=== PATIENT | female | born 1975 | race Caucasian/White ===

== ENCOUNTER → 2018-03-28 16:18 | Outpatient (CLI) | payer OTHER, SELFPAY ==
[2018-03-28 18:30] LABS: Rubella Antibody IgG 32.9 IU/mL (>15)
[2018-03-30 15:28] LABS: Hepatitis B Surf Ab Qualitativ Nonreactive (Nonreactive)
[2018-03-30 18:14] LABS: Rubeola Measles IgG > 300.00 AU/mL (< 25.00)
== END ==
PROVIDERS: PCP Internal Medicine; Visit Provider Family Medicine
DX: Z01.84 Encounter for antibody response examination (principal)
CPT/HCPCS: 36415; 86706; 86735; 86762; 86765; 86787

== ENCOUNTER 2019-03-23 16:41 | Emergency (ER) | payer OTHER, SELFPAY ==
[2019-03-23 16:50] VITALS: BP 125/84; PULSE 82; RESP 16; TEMP 36.8; O2SAT 100
--- NOTE | 2019-03-23 19:15 | ED_ITS ---
HPI - Headache General Chief Complaint: Headache Stated Complaint: HEADACHES Time Seen by Provider: 03/23/19 19:11 Source: family Mode of arrival: Ambulatory Limitations: no limitations History of Present Illness HPI Narrative: 43-year-old female nonsmoker with history of hypothyroidism presents with a chief complaint of gradually worsening headache over the past week or so. She states that it is generalized in its location, worse with loud noises and bright lights and improves with darkness. She has some nausea but denies any vomiting. Patient does have a history of headaches but states this is different than her typical. She denies other neurologic symptoms such as blurred vision, trouble with speech or numbness, tingling or weakness. Patient's recent history is relatively complicated and that she suffered a mechanical fall resulting in a left elbow dislocation just prior to the symptoms. She denies any known head or neck injury as a consequence of the fall. She had been taking Percocet for her discomfort but stopped as it made her quite nauseated. Her headaches started soon after. Additionally she's been having decreased appetite and even admits to significant decrease in her caffeine intake. MD Complaint: headache Onset (ago): day(s) Onset description: gradual Location: diffuse Severity: moderate Quality: aching and different than previous headaches Relieving factors: dark room Exacerbating factors: light and noise Associated symptoms: nausea, photophobia and sensitivity to sound Treatments prior to arrival: none Related Data Home Medications Medication Instructions Recorded Confirmed cholecalciferol (vitamin D3) 50 2,000 unit PO DAILY 11/17/17 03/23/19 mcg (2,000 unit) capsule omega-3 fatty acids 1,000 mg 1,000 mg PO DAILY 11/17/17 03/23/19 capsule thyroid (pork) [[place] Thyroid] 90 mg PO DAILY 03/23/19 03/23/19 Previous Rx's Medication Instructions Recorded ketorolac 10 mg PO Q6H PRN #14 tab 03/23/19 Allergies Allergy/AdvReac Type Severity Reaction Status Date / Time naproxen [From Aleve] Allergy Severe eyes, lips Verified 03/23/19 16:21 and genital edema codeine AdvReac Mild vomiting Verified 03/23/19 16:21 Review of Systems Constitutional Constitutional: Denies chills, Denies fatigue, Denies fever(s), Denies frequent falls, Reports headache(s), Denies lethargy and Denies weakness Eyes Eyes: Denies change in vision, Denies eye discharge, Denies irritation and Denies loss of vision ENT Ears, Nose, Mouth, and Throat: Denies change in voice, Denies dizziness, Reports headache(s), Denies neck pain, Denies sore throat and Denies throat swelling Cardiovascular Cardiovascular: Denies chest pain, Denies irregular heart rhythm, Denies lightheadedness, Denies palpitations, Denies dyspnea, Denies dyspnea on exertion and Denies orthopnea Respiratory Respiratory: Denies cough, Denies dyspnea, Denies dyspnea on exertion and Denies wheezing Gastrointestinal Gastrointestinal: Denies abdominal pain, Denies change in bowel habits, Denies diarrhea, Denies nausea and Denies vomiting Genitourinary Genitourinary: Denies hematuria, Denies flank pain, Denies urinary incontinence and Denies urinary urgency Musculoskeletal Musculoskeletal: Denies back pain, Denies muscle weakness, Denies neck pain, Denies numbness and Denies tingling Integumentary/Breasts Skin/Breast: Denies pruritus, Denies erythema, Denies rash and Denies wounds Neurologic Neurologic: Denies behavioral changes, Denies confusion, Denies dizziness, Denies frequent falls, Reports headache(s), Denies loss of vision, Denies numbness, Denies tingling and Denies weakness Psychiatric Psychiatric: Denies anxiety, Denies behavioral changes, Denies confusion, Denies depression, Denies homicidal ideation and Denies suicidal ideation Endocrine Endocrine: Denies fatigue, Denies flushing and Denies palpitations Hematologic/Lymphatic Hematologic/Lymphatic: Denies easy bruising Allergic/Immunologic Allergic/Immunologic: Denies urticaria, Denies throat swelling and Denies wheezing Patient History Medical History Actinic keratosis (Chronic ~2006) Chicken pox (Resolved ~1982) Headache (Chronic) Hypothyroidism (Chronic) Seasonal allergies (Chronic ~1994) Seizure (Resolved ~1984) Warts (Chronic) Surgical History Anesthesia (Resolved) History of tonsillectomy (Resolved) Family History Father Prostate cancer Mother Facial basal cell cancer Mental health problem Depression Bipolar disorder Grandfather Cancer Grandmother No problems noted. Grandfather Cancer Grandmother No problems noted. Social History Smoking Status: Never smoker Smoking Status: Never smoker alcohol intake frequency: holidays/special occasions only Substance Use Type: does not use Exam Narrative Exam Narrative: GENERAL: [43] year old patient appears stated age. Well- nourished, well-developed patient, in mild distress. Obviously uncomfortable, sitting in a dark room and massaging her orthodox HEAD: Atraumatic. Normocephalic. EYES: Pupils equal round and reactive. Extraocular motions intact. No scleral icterus. No injection or drainage. ENT: Nose without bleeding, purulent drainage. Throat without erythema, tonsillar hypertrophy or exudate. Airway patent. NECK: Trachea midline. Non tender CARDIOVASCULAR: Regular rate and rhythm without murmurs, gallops, or rubs. RESPIRATORY: Clear to auscultation. Breath sounds equal bilaterally. No wheezes, rales, or rhonchi. GASTROINTESTINAL: Abdomen soft, non-tender, nondistended. EXTREMITIES: No edema or joint tenderness. BACK: Nontender without deformity or crepitance. No flank tenderness. NEURO: AOx3. SKIN: No rash or erythema of visible areas Initial Vital Signs Initial Vital Signs: Vital Signs Temperature 98.2 F 03/23/19 16:50 Pulse Rate 82 03/23/19 16:50 Respiratory Rate 16 03/23/19 16:50 Blood Pressure 125/84 03/23/19 16:50 Pulse Oximetry 100 03/23/19 16:50 Course Orders Ordered: ED Orders 03/23/19 19:24 CT head/brain wo con Stat Discontinued Medications Diphenhydramine HCl (Benadryl) 25 mg IV NOW ONE Stop: 03/23/19 19:27 Last Admin: 03/23/19 19:53 Dose: 25 mg Documented by: DADA Sodium Chloride (Normal Saline 0.9%) 1,000 mls @ 1,000 mls/hr IV BOLUS ONE Stop: 03/23/19 20:25 Last Infusion: 03/23/19 21:01 Dose: 0 mls/hr Documented by: Admin: 03/23/19 19:53 Dose: 1,000 mls/hr Documented by: DADA Ketorolac Tromethamine (Toradol) 15 mg IV NOW ONE Stop: 03/23/19 19:27 Last Admin: 03/23/19 19:53 Dose: 15 mg Documented by: DADA Metoclopramide HCl (Reglan) 10 mg IV NOW ONE Stop: 03/23/19 19:27 Last Admin: 03/23/19 19:54 Dose: 10 mg Documented by: DADA Vital Signs Vital signs: Vital Signs - 8 hr 03/23/19 20:55 Pulse Rate 70 Respiratory Rate 17 Blood Pressure [Right Arm] 117/73 Pulse Oximetry 97 MDM - Headache Lab Data Labs: Point of Care Testing Glucose POC [address] scan - head: Radiologist's Impression: Myla Marinelli 43 F 1975 [place] [address] CT Scan Report Signed Patient: Myla Marinelli JMR#: [id number] : 1975Acct:[id number] Age/Sex: 43 / FDate of Service: 03/23/19 Loc: ED Accession Number: [id number] Procedure: CT head/brain wo con Ordering Provider: Juan Luis Randle D.O. PROCEDURE: CT HEAD/BRAIN WO CON INDICATIONS: fall head injury, headaches, vomiting TECHNIQUE: Noncontrast 4.5 mm thick angled axial sections acquired from the foramen magnum to the vertex, with coronal and sagittal reformats. For radiation dose reduction, the following was used: automated exposure control, adjustment of mA and/or kV according to patient size. COMPARISON: None. FINDINGS: Image quality: Excellent. CSF spaces: Basal cisterns are patent. No extra-axial fluid collections. Ventricles are normal in size and shape. Brain: No midline shift. No intracranial masses or hemorrhage. Rivera-white matter interface is normal. Skull and face: Calvarium and visualized facial bones are intact, without suspicious lesions. Sinuses: Visualized sinuses and mastoids are clear. IMPRESSION: Negative for acute stroke, hemorrhage, or mass. No evidence of significant intracranial sequelae of acute trauma. Dictated by: Lake Cheung M.D. on 03/23/2019 at 19:49 Approved by: Lake Cheung M.D. on 03/23/2019 at 19:50 MDM Narrative Medical decision making narrative: Multiple etiologies for patient's symptoms considered including: [Subarachnoid hemorrhage versus migraine versus caffeine withdrawal versus other. Patient's symptoms suggest a multifactorial source inc luding intolerance of opioids, mild dehydration, change in oral intake, caffeine withdrawal, even possibly tension headache type presentation associated with her upper extremity injury.] Patient's symptoms improved or duration of stay with above-stated therapies. Findings and discharge diagnosis discussed with patient/family followed by verbalization of understanding Return precautions discussed with patient/family whom verbalize understanding. Discharge Plan Departure Patient Disposition: Home Clinical Impression: Headache Qualifiers: Headache type: unspecified Headache chronicity pattern: acute headache Intractability: not intractable Qualified Code(s): R51 - Headache Discharge Date/Time: 03/23/19 21:03 Instructions: DI for Headache Activity Restrictions/Additional Instructions: *You have been diagnosed with [acute headache, likely multifactorial from recent medications, injury, caffeine, dehydration, change in diet among others] *What to do: *Take medications as directed *Follow up with your primary care provider in 2-3 days, call for an appointment. Let them know you were seen in the Emergency Department and that we ask that you be seen in follow up *Return to ER if you should have any new, worsening or concerning symptoms Prescriptions: New ketorolac 10 mg tablet 10 mg PO Q6H PRN (Reason: pain) Qty: 14 RF: 0 No Action cholecalciferol (vitamin D3) 2,000 unit capsule 2,000 unit PO DAILY RF: 0 omega-3 fatty acids [Fish Oil Concentrate] 1,000 mg capsule 1,000 mg PO DAILY RF: 0 thyroid (pork) [[place] Thyroid] 90 mg Tablet 90 mg PO DAILY RF: 0 Referrals: Blanche Roberson ARNP [Primary Care Provider] -
--- NOTE | 2019-03-23 19:24 | DI.CT.S_ITS ---
PROCEDURE: CT HEAD/BRAIN WO CON INDICATIONS: fall head injury, headaches, vomiting TECHNIQUE: Noncontrast 4.5 mm thick angled axial sections acquired from the foramen magnum to the vertex, with coronal and sagittal reformats. For radiation dose reduction, the following was used: automated exposure control, adjustment of mA and/or kV according to patient size. COMPARISON: None. FINDINGS: Image quality: Excellent. CSF spaces: Basal cisterns are patent. No extra-axial fluid collections. Ventricles are normal in size and shape. Brain: No midline shift. No intracranial masses or hemorrhage. Rivera-white matter interface is normal. Skull and face: Calvarium and visualized facial bones are intact, without suspicious lesions. Sinuses: Visualized sinuses and mastoids are clear. IMPRESSION: Negative for acute stroke, hemorrhage, or mass. No evidence of significant intracranial sequelae of acute trauma. Dictated by: Lake Cheung M.D. on 03/23/2019 at 19:49 Approved by: Lake Cheung M.D. on 03/23/2019 at 19:50
[2019-03-23] MEDS: diphenhydrAMINE 50 MG/ML VIAL 25 MG IV (19:53)
[2019-03-23] MEDS: SODIUM CHLORIDE 0.9% 1,000 ML 1000 ML IV (19:53)
[2019-03-23] MEDS: KETOROLAC 60 MG/2 ML VIAL 15 MG IV (19:53)
[2019-03-23] MEDS: METOCLOPRAMIDE 10 MG/2 ML INJ IV (19:54)
[2019-03-23 20:55] VITALS: BP 117/73; PULSE 70; RESP 17; O2SAT 97
== END 2019-03-23 21:03 | disposition home or self-care (01) ==
PROVIDERS: Emergency Provider Emergency Medicine; Family Provider Internal Medicine; PCP Internal Medicine
DX: R51 Headache (principal)
CPT/HCPCS: 36415; 70450; 82962; 96361; 96374; 96375; 99284; J1200; J1885; J2765

== ENCOUNTER → 2019-05-01 13:42 | Outpatient (CLI) | payer OTHER, SELFPAY ==
--- NOTE | 2019-05-01 | DI.MRI.S_ITS ---
PROCEDURE: MR WRIST LT W CON INDICATIONS: LEFT WRIST PAIN TECHNIQUE: After the administration of 3-4 mL of dilute intra-articular Gadolinium contrast into the radiocarpal compartment, coronal T1 spin echo with fat saturation and T2 fast spin echo with fat saturation, axial T1 spin echo and T2 fast spin echo with fat saturation, sagittal T1 spin echo with and without fat saturation through the wrist. COMPARISON: None. FINDINGS: Image quality: Excellent. Bones and cartilage: The carpal bones are normally aligned. No bone marrow contusions or fractures. 3 mm T2 hyperintense focal marrow signal change present in the distal capitate. No evidence for avascular necrosis. Overlying cartilage surfaces appear normal. Carpal ligaments: The scapholunate ligament appears grossly intact The lunotriquetral ligament is not well seen and there is gadolinium extravasation into the mid-carpal compartment. The radioscaphocapitate and radiolunotriquetral ligaments appear intact. The arcuate ligament and short radiolunate ligament also appear normal. The dorsal intercarpal and radiotriquetral ligaments appear intact. On sagittal images, the pisohamate ligament appears intact. Triangular fibrocartilage complex: The triangular fibrocartilage disc, with its styloid and foveal lamina, appears intact. There is gadolinium leakage into the distal radioulnar joint. However the exact etiology is not well visualized by MR. The adjacent meniscal homolog appears normal. The ulnar collateral ligament appears intact. The extensor carpi ulnaris tendon is normal in location and morphology. Tendons and soft tissues: The carpal tunnel structures appear normal, including the median nerve. The ulnar nerve appears normal within Guyon's canal. All six extensor tendon compartments demonstrate normal morphology, without pathologic tendon sheath fluid. No soft tissue ganglion cysts. IMPRESSION: Tear of the lunotriquetral ligament. Associated gadolinium contrast material leakage into the midcarpal compartment Gadolinium signal intensity present within the distal radioulnar joint although the exact source is unclear. This infers full thickness perforation of the TFCC however this is not well visualized by MR. No ulnocarpal chondral loss is identified. Dictated by: Alexys Burch M.D. on 05/01/2019 at 15:53 Approved by: Alexys Burch M.D. on 05/01/2019 at 16:09
--- NOTE | 2019-05-01 | DI.RAD.S_ITS ---
PROCEDURE: FL WRIST INJECTION MR/CT LT INDICATIONS: LEFT WRIST PAIN TECHNIQUE: After informed consent had been obtained, the wrist was examined fluoroscopically, and a site chosen for injection of the radiocarpal compartment from a dorsal approach. Skin was prepped and draped in a sterile fashion and 1% lidocaine infiltrated from the skin down to the articular surface. A hypodermic needle was then introduced into the articular space and a modest amount of contrast medium was instilled confirming intra-articular needle tip placement. This was followed by approximately 4 mL of a dilute gadolinium solution. Needle was removed and dressing was applied. The patient experienced no complications throughout the procedure and left the fluoroscopic suite in no apparent distress. FINDINGS: A single fluoroscopic spot image demonstrates intra-articular location to injected iodinated contrast. IMPRESSION: Successful fluoroscopic-guided administration of dilute Gadolinium solution for wrist MR arthrogram. Dictated by: Alexys Burch M.D. on 05/01/2019 at 17:37 Approved by: Alexys Burch M.D. on 05/01/2019 at 17:38
== END ==
PROVIDERS: Family Provider Internal Medicine; PCP Internal Medicine; Referring Provider Internal Medicine; Visit Provider Orthopaedic Surgery
DX: M25.532 Pain in left wrist (principal); S63.592A Other specified sprain of left wrist, initial encounter
CPT/HCPCS: 20605; 73222; 76000

== ENCOUNTER → 2020-04-17 15:16 | Outpatient (CLI) | payer OTHER, SELFPAY ==
--- NOTE | 2020-04-17 | DI.US.S_ITS ---
PROCEDURE: US PELVIC COMPLETE INDICATIONS: IUD PLACEMENT TECHNIQUE: Real-time scanning was performed of the pelvic organs, with image documentation. Additional endovaginal scanning was necessary due to incomplete visualization of the adnexal and endometrial structures by transabdominal scanning. COMPARISON: None. FINDINGS: Uterus: Uterus is normal in size at 9.2 x 6.1 x 5.1 cm. The endometrium measures 6 mm in combined thickness. An IUD is seen at its expected location at the uterine fundus. Ovaries: The right ovary measures 3.5 x 2 x 1.7 cm and demonstrates an unremarkable sonographic appearance. The left ovary is not seen. No adnexal masses are seen on either side. Other: No pathologic free abdominal or pelvic fluid. IMPRESSION: The IUD is seen at its expected location. Left ovary not seen. Dictated by: Hamzah Molina M.D. on 04/17/2020 at 15:49 Approved by: Hamzah Molina M.D. on 04/17/2020 at 15:50
== END ==
PROVIDERS: Family Provider Internal Medicine; PCP Internal Medicine; Referring Provider Internal Medicine; Visit Provider Internal Medicine
DX: Z30.431 Encounter for routine checking of intrauterine contraceptive device (principal)
CPT/HCPCS: 76830; 76856

== ENCOUNTER → 2020-04-24 12:13 | Outpatient (CLI) | payer OTHER, SELFPAY ==
--- NOTE | 2020-04-24 12:14 | DI.MG.S_ITS ---
BILATERAL DIGITAL SCREENING MAMMOGRAM 3D/2D WITH CAD: 04/24/2020 CLINICAL: Routine screening. Comparison is made to exam dated: 03/26/2016 mammogram - outside. The tissue of both breasts is heterogeneously dense. This may lower the sensitivity of mammography. Current study was also evaluated with a Computer Aided Detection (CAD) system. No significant masses, calcifications, or other findings are seen in either breast. There has been no significant interval change. IMPRESSION: NEGATIVE There is no mammographic evidence of malignancy. A 1 year screening mammogram is recommended. This exam was interpreted at Station ID: [id number]. NOTE: For mammograms, a report in lay terms will be sent to the patient. Approximately 15% of breast malignancies will not be visualized mammographically. In the management of a palpable breast mass, a negative mammogram must not discourage biopsy of a clinically suspicious lesion. Electronically Signed By: Carter [email or web address]:04/24/2020 12:50:48 letter sent: Normal Exam ACR BI-RADS Category 1: Negative 3341F
== END ==
PROVIDERS: Family Provider Internal Medicine; PCP Internal Medicine; Referring Provider Internal Medicine; Visit Provider Internal Medicine
DX: Z12.31 Encounter for screening mammogram for malignant neoplasm of breast (principal)
CPT/HCPCS: 77063; 77067

== ENCOUNTER → 2020-04-29 16:29 | Outpatient (CLI) | payer OTHER, SELFPAY ==
[2020-04-29 17:48] LABS: COVID19 -Nasal RAPID Negative (Negative)
== END ==
PROVIDERS: Family Provider Internal Medicine; PCP Internal Medicine; Visit Provider Physician Assistant
DX: Z20.822 Contact with and (suspected) exposure to COVID-19 (principal)
CPT/HCPCS: 87635

== ENCOUNTER → 2021-07-29 13:30 | Outpatient (CLI) | payer OTHER, SELFPAY ==
--- NOTE | 2021-07-29 | DI.MG.S_ITS ---
BILATERAL DIGITAL SCREENING MAMMOGRAM 3D/2D WITH CAD: 07/29/2021 CLINICAL: Routine screening. Comparison is made to exams dated: 04/24/2020 mammogram - [facility] and 03/26/2016 mammogram - outside. The tissue of both breasts is heterogeneously dense. This may lower the sensitivity of mammography. Current study was also evaluated with a Computer Aided Detection (CAD) system. No significant masses, calcifications, or other findings are seen in either breast. There has been no significant interval change. IMPRESSION: NEGATIVE There is no mammographic evidence of malignancy. A 1 year screening mammogram is recommended. This exam was interpreted at Station ID: [id number]. NOTE: For mammograms, a report in lay terms will be sent to the patient. Approximately 15% of breast malignancies will not be visualized mammographically. In the management of a palpable breast mass, a negative mammogram must not discourage biopsy of a clinically suspicious lesion. Electronically Signed By: Paige [email or web address]/josh:07/29/2021 15:37:54 letter sent: Normal Exam ACR BI-RADS Category 1: Negative 3341F
== END ==
PROVIDERS: Family Provider Internal Medicine; PCP Internal Medicine; Referring Provider Internal Medicine; Visit Provider Internal Medicine
DX: Z12.31 Encounter for screening mammogram for malignant neoplasm of breast (principal)
CPT/HCPCS: 77063; 77067

== ENCOUNTER → 2022-05-18 15:01 | Outpatient (CLI) | payer OTHER, SELFPAY ==
--- NOTE | 2022-05-18 15:04 | DI.RAD.S_ITS ---
PROCEDURE: XR CHEST 2V INDICATIONS: COVID + /, worsening cough TECHNIQUE: 2 views of the chest were acquired. COMPARISON: None. FINDINGS: Surgical changes and devices: None. Lungs and pleura: Lungs are clear. No pleural effusions or pneumothorax. Mediastinum: Mediastinal contours are normal. Heart size is normal. Bones and chest wall: No suspicious bony abnormalities. Soft tissues appear unremarkable. IMPRESSION: No acute cardiopulmonary process demonstrated radiographically. Dictated by: Jason Daniel M.D. on 05/18/2022 at 16:06 Approved by: Jason Daniel M.D. on 05/18/2022 at 16:06
== END ==
PROVIDERS: Family Provider Internal Medicine; PCP Internal Medicine; Referring Provider Student in an Organized Health Care Education/Training Program; Visit Provider Student in an Organized Health Care Education/Training Program
DX: U07.1 COVID-19 (principal); R05.9 Cough, unspecified
CPT/HCPCS: 71046

== ENCOUNTER → 2023-05-17 14:05 | Outpatient (CLI) | payer OTHER, SELFPAY ==
--- NOTE | 2023-05-17 14:07 | DI.MG.S_ITS ---
BILATERAL DIGITAL SCREENING MAMMOGRAM 3D/2D WITH CAD: 05/17/2023 CLINICAL: Routine screening. Comparison is made to exams dated: 07/29/2021 mammogram, 04/24/2020 mammogram - [facility], and 03/26/2016 mammogram - outside. Both breasts are heterogeneously dense, which may obscure small masses (category c / 51-75% glandular tissue). Current study was also evaluated with a Computer Aided Detection (CAD) system. No significant masses, calcifications, or other findings are seen in either breast. There has been no significant interval change. IMPRESSION: NEGATIVE There is no mammographic evidence of malignancy. A 1 year screening mammogram is recommended. Based on the Tyrer Cuzick model (a risk assessment model) the patient's lifetime risk is 8.8% and her 10 year risk is 1.8%. According to the ACR, ACS, and NCCN guidelines, an annual breast MRI exam along with mammogram is recommended if the patient's lifetime risk is 20% or greater. This exam was interpreted at Station ID: [id number]. NOTE: For mammograms, a report in lay terms will be sent to the patient. Approximately 15% of breast malignancies will not be visualized mammographically. In the management of a palpable breast mass, a negative mammogram must not discourage biopsy of a clinically suspicious lesion. Electronically Signed By: Orlando [email or web address]:05/17/2023 17:40:18 letter sent: Normal Exam ACR BI-RADS Category 1: Negative 3341F
== END ==
PROVIDERS: Family Provider Internal Medicine; PCP Internal Medicine; Referring Provider Internal Medicine; Visit Provider Internal Medicine
DX: Z12.31 Encounter for screening mammogram for malignant neoplasm of breast (principal); R92.333 Mammographic heterogeneous density, bilateral breasts
CPT/HCPCS: 77063; 77067

== ENCOUNTER → 2024-01-28 08:44 | Outpatient (CLI) | payer OTHER, SELFPAY ==
[2024-01-28 09:57] LABS: Adenovirus Not Detected (Not Detect); B. parapertussis Not Detected (Not Detecte); Bordetella pertussis Not Detected (Not Detect); Chlamydophila pneumoniae Not Detected (Not Detect); Coronavirus 229E Not Detected (Not Detect); Coronavirus HKU1 Not Detected (Not Detect); Coronavirus NL 63 Not Detected (Not Detect); Coronavirus OC43 Not Detected (Not Detect); Human Metapneumovirus Not Detected (Not Detect); Human Rhinovirus/Enterovirus Not Detected (Not Detect); Influenza A Not Detected (Not Detect); Influenza B Not Detected (Not Detect); Mycoplasma pneumoniae Not Detected (Not Detect); Parainfluenza Virus 1 Not Detected (Not Detect); Parainfluenza Virus 2 Not Detected (Not Detect); Parainfluenza Virus 3 Not Detected (Not Detect); Parainfluenza Virus 4 Not Detected (Not Detect); Respiratory Syncytial Virus Not Detected (Not Detect); SARS- CoV-2 Not Detected (Not Detecte)
== END ==
PROVIDERS: Family Provider Internal Medicine; PCP Internal Medicine; Referring Provider Nurse Practitioner Family; Visit Provider Nurse Practitioner Family
DX: R05.1 Acute cough (principal)
CPT/HCPCS: 87633

== ENCOUNTER → 2024-01-28 08:56 | Outpatient (CLI) | payer OTHER, SELFPAY ==
--- NOTE | 2024-01-28 08:58 | DI.RAD.S_ITS ---
PROCEDURE: XR CHEST 2V INDICATIONS: r/o PNA TECHNIQUE: 2 views of the chest were acquired. COMPARISON: [facility], CR, XR CHEST 2V, 05/18/2022, 16:28. FINDINGS: Surgical changes and devices: None. Lungs and pleura: Lungs are clear. No pleural effusions or pneumothorax. Mediastinum: Mediastinal contours are normal. Heart size is normal. Bones and chest wall: No suspicious bony abnormalities. Soft tissues appear unremarkable. IMPRESSION: No acute pulmonary process. Dictated by: Melisa Dominguez M.D. on 01/28/2024 at 12:32 Approved by: Melisa Dominguez M.D. on 01/28/2024 at 12:35
== END ==
PROVIDERS: Family Provider Internal Medicine; PCP Internal Medicine; Referring Provider Nurse Practitioner Family; Visit Provider Nurse Practitioner Family
DX: R05.1 Acute cough (principal)
CPT/HCPCS: 71046; 87633

== ENCOUNTER → 2024-06-01 08:01 | Outpatient (CLI) | payer OTHER, SELFPAY ==
[2024-06-01 08:35] LABS: Add Manual Diff / Slide Review NO; Basophils Absolute Auto 0 /uL (0-100); Basophils Percent Auto 0.6 % (0-2); Eosinophils Absolute Auto 200 /uL (0-450); Eosinophils Percent Auto 3.3 % (2-4); Hematocrit 39.8 % (36-46); Hemoglobin 13.6 g/dL (12.0-16.0); Lymphocytes Absolute Auto 1900 /uL (1100-4500); Lymphocytes Percent Auto 34.8 % (25-40); Mean Corpuscular HGB Conc 34.3 % (30-36); Mean Corpuscular Hemoglobin 30.3 PG (26-34); Mean Corpuscular Volume 88.4 fL (80-100); Monocytes Absolute Auto 400 /uL (0-900); Monocytes Percent Auto 7.1 % (3-14); Neutrophils Absolute Auto 3000 /uL (1500-7000); Neutrophils Percent Auto 54.2 % (50-75); Platelet Count 252 X10^3/uL (150-400); Red Cell Distribution Width 13.4 % (11.6-14.8); White Blood Cell Count 5.5 X10^3/uL (4.5-11.0)
[2024-06-01 08:55] LABS: Alanine Aminotransferase 20 IU/L (<35); Albumin 4.4 g/dL (3.5-5.0); Albumin Globulin Ratio 2.1 (1.0-2.8); Alkaline Phosphatase 57 U/L (38-126); Aspartate Aminotransferase 25 IU/L (14-36); BUN Creatinine Ratio 22.7 (6-22); Blood Urea Nitrogen 17 mg/dL (7-17); Carbon Dioxide 28 mmol/L (22-32); Chloride 105 mmol/L (98-107); Cholesterol 159 mg/dL (140-199); Estimated Glomerular Filt Rate > 60 mL/min (>60); Globulin 2.1 g/dL (1.7-4.1); Glucose 91 mg/dL (70-100); HDL Cholesterol 67 mg/dL (40-60); HEMOLYSIS < 15 (0-50); Hemoglobin A1C% w Est Avg Glu 4.8 % (4.0-6.0); LDL Cholesterol Calculated 83 mg/dL (<100); Potassium 4.3 mmol/L (3.4-5.1); Sodium 139 mmol/L (137-145); Total Protein 6.5 g/dL (6.3-8.2); Triglycerides 43 mg/dL (35-150)
[2024-06-01 09:11] LABS: Follicle Stimulating Hormone 91.1 mIU/mL; Luteinizing Hormone 41.1 mIU/mL; Progesterone, Total 0.84 ng/mL
[2024-06-01 09:12] LABS: Vitamin D 25 Hydroxy (D3) 50.2 ng/mL (30.0-100.0)
[2024-06-01 09:14] LABS: Free T3, Triiodothyronine Free 7.15 pg/mL (2.77-5.27); T4 Total Thyroxine 6.72 ug/dL (5.5-11.0)
[2024-06-01 09:27] LABS: Thyroid Stimulating Hormone 0.238 uIU/mL (0.47-4.68)
--- NOTE | 2024-06-01 11:33 | DI.MG.S_ITS ---
MM screening mammo BI: 06/01/2024. BI-RADS: 0 CLINICAL: 48-year old female for bilateral screening mammogram. Tyrer-Cuzick lifetime risk of 10.0%. No personal or first-degree family history of breast cancer. PRIOR EXAMS 05/17/2023, 07/29/2021, 04/24/2020. MAMMOGRAPHY TECHNIQUE: 2D and 3D (tomosynthesis) digital mammographic views obtained, with additional images as needed for full coverage. Current study was also evaluated with a Computer Aided Detection (CAD) system. DENSITY C. The breasts are heterogeneously dense, which may obscure small masses. MAMMOGRAPHY FINDINGS Right: Lower Inner Quadrant, Middle depth: Calcifications needing additional imaging evaluation. Left: No suspicious mass, asymmetry, microcalcification, or other abnormality seen. IMPRESSION: Right (Calcification): Lower Inner Quadrant, Middle depth * Incomplete - calcification needing additional imaging evaluation. Left * No evidence of malignancy. RECOMMENDATIONS Right: Lower Inner Quadrant, Middle depth * Further evaluation with diagnostic mammography. OVERALL ASSESSMENT CATEGORY BI-RADS-0: Incomplete - Need Additional Imaging Evaluation. ELECTRONICALLY SIGNED: Elda Cheng M.D. on 06/01/2024 at 04:42:52 PM PT Interpreting Station ID: [id number]
[2024-06-03 18:15] LABS: Anti Thyroglobulin Antibody <1.0 IU/mL (0.0-0.9); Thyroid Peroxidase Antibodies 16 IU/mL (0-34)
[2024-06-04 12:09] LABS: Estrogen 91 pg/mL (.)
[2024-06-05 18:08] LABS: Zinc 74 ug/dL (44-115)
[2024-06-06 00:38] LABS: Anti Mullerian Hormone <0.015 ng/mL (.)
== END ==
PROVIDERS: Family Provider Internal Medicine; PCP Family Medicine; Referring Provider Family Medicine; Visit Provider Family Medicine
DX: Z12.31 Encounter for screening mammogram for malignant neoplasm of breast (principal); Z83.3 Family history of diabetes mellitus; M62.89 Other specified disorders of muscle; R63.5 Abnormal weight gain; N95.8 Other specified menopausal and perimenopausal disorders; R23.2 Flushing; E03.9 Hypothyroidism, unspecified; R92.1 Mammographic calcification found on diagnostic imaging of breast
CPT/HCPCS: 36415; 77063; 77067; 80053; 80061; 82306; 82397; 82672; 83001; 83002; 83036; 83735; 84144; 84402; 84403; 84436; 84443; 84481; 84630; 85025; 86376; 86800

== ENCOUNTER → 2024-06-15 15:43 | Outpatient (CLI) | payer OTHER, SELFPAY ==
--- NOTE | 2024-06-15 15:45 | DI.US.S_ITS ---
PROCEDURE: US THYROID INDICATIONS: elevated T3, low TSH TECHNIQUE: Real-time scanning was performed of the thyroid gland, with image documentation. COMPARISON: None. FINDINGS: Thyroid: Right lobe measures 3.9 x 1 x 0.7 cm. Left lobe measures 3.6 x 1 x 0.6 cm. Isthmus is 0.2 cm thick. Echotexture is heterogeneous. IMPRESSION: Small heterogeneous thyroid. This is likely sequelae of thyroiditis or other parenchymal disease. No actionable thyroid nodule identified. Approved by: Bro Mtz M.D. on 06/15/2024 at 17:37
== END ==
LOC: US 15:44
PROVIDERS: Family Provider Internal Medicine; PCP Family Medicine; Referring Provider Family Medicine; Visit Provider Family Medicine
DX: E03.9 Hypothyroidism, unspecified (principal); R79.89 Other specified abnormal findings of blood chemistry
CPT/HCPCS: 76536

== ENCOUNTER → 2024-08-18 14:20 | Outpatient (CLI) | payer OTHER, SELFPAY ==
[2024-08-18 15:33] LABS: Free T3, Triiodothyronine Free 5.02 pg/mL (2.77-5.27); T4 Total Thyroxine 6.12 ug/dL (5.5-11.0)
[2024-08-18 15:46] LABS: Thyroid Stimulating Hormone 0.948 uIU/mL (0.47-4.68)
== END ==
PROVIDERS: Family Provider Internal Medicine; PCP Family Medicine; Referring Provider Family Medicine; Visit Provider Family Medicine
DX: E03.9 Hypothyroidism, unspecified (principal)
CPT/HCPCS: 36415; 84436; 84443; 84481

== ENCOUNTER → 2024-09-20 08:47 | Outpatient (CLI) | payer OTHER, SELFPAY ==
--- NOTE | 2024-09-20 08:48 | DI.MG.S_ITS ---
MM diagnostic mammo unilat RT: 09/20/2024. BI-RADS: 3 CLINICAL: 48-year old female for right diagnostic mammogram that is a recall from screening on 06/01/2024. Tyrer-Cuzick lifetime risk of 10.0%. No personal or first-degree family history of breast cancer. PRIOR EXAMS Mammogram(s): 06/01/2024. Three Other Exams on 05/17/2023, 07/29/2021, 04/24/2020. MAMMOGRAPHY TECHNIQUE: 2D and 3D (tomosynthesis) digital mammographic views obtained, with additional images as needed for full coverage. Current study was also evaluated with a Computer Aided Detection (CAD) system. DENSITY Right: C. The breasts are heterogeneously dense, which may obscure small masses. MAMMOGRAPHY FINDINGS Right: Lower Inner Quadrant: Correlating with findings on screening mammogram there are probably-benign grouped punctate calcifications. IMPRESSION: Right (Calcification): Lower Inner Quadrant * Probably Benign. RECOMMENDATIONS Right: Lower Inner Quadrant, Middle depth * Six month followup with diagnostic mammography. COMMENTS: Findings and recommendations were conveyed to the patient during today's evaluation. OVERALL ASSESSMENT CATEGORY BI-RADS-3: Probably Benign. ELECTRONICALLY SIGNED: Eusebio Rea M.D. on 09/20/2024 at 09:16:54 AM PT Interpreting Station ID: [id number]
== END ==
LOC: MAMMO 08:47
PROVIDERS: Family Provider Internal Medicine; PCP Family Medicine; Referring Provider Family Medicine; Visit Provider Family Medicine
DX: R92.8 Other abnormal and inconclusive findings on diagnostic imaging of breast (principal); R92.1 Mammographic calcification found on diagnostic imaging of breast; R92.333 Mammographic heterogeneous density, bilateral breasts
CPT/HCPCS: 77065; G0279

== ENCOUNTER 2024-09-26 09:45 | Outpatient (RCR) | payer OTHER, SELFPAY ==
--- NOTE | 2024-02-25 20:06 | PT.OIE ---
Current Diagnoses Sacrococcygeal disorders, not elsewhere classified (02/25/24) Cystocele, unspecified (02/25/24) Unspecified dyspareunia (02/25/24) Flatulence (02/25/24) Fecal urgency (02/25/24) Past Medical History (Last Reviewed 05/18/22 @ 15:45 by Thelma Hernandez PA-C) Actinic keratosis (~2006) Chicken pox (~1982) Headache Hypothyroidism Seasonal allergies (~1994) Seizure (~1984) Warts Past Surgical History (Last Reviewed 05/18/22 @ 15:45 by Thelma Hernandez PA-C) Anesthesia History of tonsillectomy Visit Care Team Role Provider Type GENNA Haro Attending Provider Advanced Lead Dental Assistant Family Provider Primary Care Provider Referring Provider Specialty: [facility] Address: [address] [place] [address], [facility] Email: [email or web address] Physical Therapy Initial Evaluation PT-OP-A Visit Information Start: 01/29/24 13:09 Freq: Status: Active Protocol: Document 02/25/24 07:32 LRN (Rec: 02/25/24 08:24 LRN [id number]) Out-Patient Physical Therapy Visit Information Visit Information Visit Type Initial Evaluation Visit Start Time 07:32 Visit Stop Time 08:23 Visit Number 04/05 Evaluation Information Evaluation Date 02/25/24 Precautions Precautions Seizures? Concussion age 9, thyroid disorder, 4G4P with much pain during 3rd , quick delivery and tearing of unknown degree. PT-OP-B Current Condition Start: 01/29/24 13:09 Freq: Status: Active Protocol: Document 02/25/24 07:32 LRN (Rec: 02/25/24 08:24 LRN [id number]) Current Condition History of Current Condition Onset Date 2014 Current Complaints Having a lot of tailbone pn, heaviness ant lwr abdomen, discomfort in sup. History of Current Condition Has been a runner all her life , moved to [place] and was training for a 10 mile race, then felt like she was sitting on a tennis ball. Stopped running and saw a PT [facility], but stopped after 2 months because she felt it wasn't helpful, other than what stopping running achieved . Pt is 4G4P and had significant tearing with the first childbirth, but normal and running for exercise until time of delivery w/o pain (oldest child is 18). 2nd she felt a moderate amount of discomfort in anterior pubic region. 3rd she had much pubic pain due to baby with large head and delivered fast was fast, < 3 hrs) resulting in post decreased sensation with intercourse. Pt calls needing stitches, but doesn't know the degree of tearing. 4th child was induced delivery and felt was normal, without pain. In August of 2023 she began running 1 mile/day for 20 days and had to stop because of new tailbone pain and heaviness with bulging in the perineum, but not the tennis ball feeling. When having intercourse feels like there is a tissue restricting insertion and is uncomfortable . She plans on discussing with her PCP about starting estrogen creme. She swam and walked with last 3 pregnancies. Currently, sometimes walking to the bathroom she has loss of small fecal matter at work and when out in public, mostly at home . C/o with intercourse she is not able to complete an orgasm, and it is not as intense since the of her 3rd child. Has been told she potentially she will need surgery to repair the PF or rectocele. Treatment Goals Patient/Caregiver Goals Pt goals: Decrease or eliminate tailbone pain (that started in 09/12 after trying running). Decrease heaviness in lower abdomen (2/10), minimal before starting running (1/10) Felt more comfortable Be able to incorporate wgt training in her ex program. ( Restore your core) Improve level of fecal continence. 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 PT-OP-C Subjective Start: 01/29/24 13:09 Freq: Status: Active Protocol: Document 02/25/24 07:32 LRN (Rec: 02/25/24 08:24 LRN [id number]) Patient Questionnaires Pelvic Pain and Urgency/Frequency Patient Symptom Scale Pelvic Pain Score 9 Other Questionnaire Name and Score PF20 partially completed OP-PT Pain Assessment Pain Assessment Grid Paper Pain Assessment Grid Completed Yes Location coccyx Pain Location Details Lower sacrum. Intensity 2 Scale Used Numeric (0 - 10) Description Dull Frequency Constant Other Pain Aggravating Factors Long car rides, supine lying Other Pain Alleviating Factors Laying on sides. PT-OP-I Pelvic Floor Start: 01/29/24 13:09 Freq: Status: Active Protocol: Document 02/25/24 07:32 LRN (Rec: 02/25/24 18:10 LRN [id number]) Pelvic Floor Assessment Comments Pelvic Floor Comments PF assessment deferred to next visit due to time constraint. Externally, R coccygeal muscles are tight. PT-OP-J Posture/Palpation/Skin Start: 01/29/24 13:09 Freq: Status: Active Protocol: Document 02/25/24 07:32 LRN (Rec: 02/25/24 08:24 LRN [id number]) Posture Evaluation Position Standing Shoulder Posture (L) Elevated Scapula Posture (R) Retracted Pelvis Posture (L) PSIS Posterior,(L) ASIS Posterior Comments Posture Comments Dowagers hump, Sacrum L rotated, R PSIS is more lateral than L. In sitting: Pt sits with legs crossed, reportedly for comfort. PT-OP-K Range of Motion Start: 01/29/24 13:09 Freq: Status: Active Protocol: Document 02/25/24 07:32 LRN (Rec: 02/25/24 08:24 LRN [id number]) Lumbar Spine Range of Motion Lumbar Spine Active Degrees Testing Position Standing Flexion 110 Extension 30 Rotation Left 45 Rotation Right 40 Lateral Flexion Left 18 Lateral Flexion Right 18 Hip Goniometric Range of Motion Hip Right Passive Testing Position Supine Internal Rotation 25 External Rotation 75 Left Passive Testing Position Supine Internal Rotation 30 External Rotation 70 PT-OP-M Strength Start: 01/29/24 13:09 Freq: Status: Active Protocol: Document 02/25/24 07:32 LRN (Rec: 02/25/24 08:24 LRN [id number]) Hip Strength Hip Manual Muscle Testing Right Flexion (L2) 3+ Fair+ Internal Rotation 4+ Good+ Left Flexion (L2) 3+ Fair+ Extension (S1) 3 Fair Abduction 3+ Fair+ External Rotation 3+ Fair+ Internal Rotation 4+ Good+ PT-OP-Q Treatments Start: 01/29/24 13:09 Freq: Status: Active Protocol: Document 02/25/24 07:32 LRN (Rec: 02/25/24 08:24 LRN [id number]) Therapeutic Exercises Other Exercises Cat/cow Reps/Minutes x 5 Self-Care/Home Management Treatment Education Other Education Discussed results of evaluation, goals, treatment, and plan of care (POC) with pt , discussed attendance/cx/dns policy; pt agreeable to evaluation, goals, treatment, attendance/cx/dns policy and POC. Discussed and educated pt in specifics for completion of in use of Bladder Diary to include bowel movments and I/S in tracking for 1 week. Activities Self-Care/Home Management Activities I/S pt to Resume program and bring in a list of her previous ex's she was doing on her nirali (Restore your core). PT-OP-T Assessment and Plan Start: 01/29/24 13:09 Freq: Status: Active Protocol: Document 02/25/24 07:32 LRN (Rec: 02/25/24 08:24 LRN [id number]) Physical Therapy Assessment Rehab Potential Rehabilitation Potential Good Evaluation Complexity Number of Personal Factors/Comorbidities 1-2 Number of Body Systems Impaired 4 or More Clinical Presentation at Evaluation Evolving Impairments Impairments Activity Tolerance,Pain,ROM, Sensation,Soft Tissue Mobility ,Strength,Transfers Goals Five Impairment Fecal incontinence Short Term Goal (STG) Improve posterior PF strength with pt able to control passing of gas in public. STG Duration 04/07/24 Animal Nursery Worker Goal (LTG) Improve posterior PF strength with pt able to walk to the bathroom wthout loss of small fecal matter at work and when out in public. LTG Duration 05/19/24 Four Impairment Dyspareunia and inability to complete orgasm. Short Term Goal (STG) Decrease discomfort with intercourse. STG Duration 04/07/24 Residential Goal (LTG) Pt will be able to achieve orgasm with use of pre- intercourse activities and mindfulness activities. LTG Duration 05/19/24 Three Impairment Heaviness pain in lower abdomen (2/10) Short Term Goal (STG) Decrease constant feeling of heaviness in the lower abdoment to intermittent. STG Duration 04/07/24 Animal Nursery Worker Goal (LTG) Eliminate heaviness in the lower abdomen by pt able to demonstrate wgt lifting exercise with proper breathing mechanics. LTG Duration 05/19/24 Two Impairment Constant tailbone pain worse in sitting & supine Short Term Goal (STG) Eliminate tailbone pain with pt able to tolerate some supine lying for sleeping. STG Duration 04/07/24 Animal Nursery Worker Goal (LTG) Decrease or tailbone pain with pt able to comfortably sit for car rides. LTG Duration 05/19/24 One Impairment Lacks appropriate self care HEP. Short Term Goal (STG) Pt will be educated and able to demonstrate proper deep breathing methods for having a bowel mvmt to minimize an increase in core pressure. STG Duration 04/07/24 Residential Goal (LTG) Pt will be independent in a self care HEP for PF strengthening in all positions , and able to incorporate wgt training in her ex program without onset of bulge in perineum (to include Restore your core program). LTG Duration 05/19/24 Assessment Summary Assessment Pt is a 48 yo female with c/o tailbone pn sitting and supine , heaviness in her lower abdomen, fecal incontinence of small amount trying to get to bathroom, pain with intercourse (with insertion being blocked), difficulty achieving full orgasm, and decreased ability to return to weight lifting exercise. She is mildly decreased with R hip IR, L hip ER (5 deg's), strength is decreased in L hip , and she has tightness of her R coccygeal muscles. She probably has perineal muscle dysfunction based on her history. PF assessment was not able to be performed today, due to time constraints as her history taking was quite extensive. PF assessment will be performed at her next visit. It is expected that the pt's therapy may be prolonged due to her multiple areas of dysfunction. The pt will benefit from skilled physical therapy to work towards achieving the above stated goals. Physical Therapy Plan Frequency and Duration Frequency of Treatment 1x/Week Duration of treatment (weeks) 12 Plan of Care Start Date 02/25/24 Plan of Care End Date 05/19/24 Therapeutic Interventions Therapeutic Interventions Home Exercise Program,Joint Mobilizations,Manual Therapy, Neuromuscular Re-education, Self-Care/Home Management,Soft Tissue Mobilization,Taping, Therapeutic Activities, Therapeutic Exercises Modalities Biofeedback,Cold Pack/Ice Massage,Electric Stimulation, Hot Packs Next Visit Focus/Plan Next Note Type Treatment Note Next Visit Plan Next: Assess deep breathing, vaginal and rectal PF assessment. Review bladder/ bowel diary and address appropriate areas. Subsequent visits: Sacral balancing. PF biofeedback assessment (vEMG). Ther Ex: PF & L hip strengthening, assess DR for abdominal strengthening. Improve mobility: hip R>L IR, L>R ER PROM. Manual - ?internal STM. POC: Pt education, Manual therapy. Biofeedback with vaginal or rectal sensor for PF >< awareness (?strength vs relax), Therapeutic Exercises, Therapeutic Activities, Neuromuscular Reeducation.
--- NOTE | 2024-02-25 20:08 | PT.OPPOC ---
Physical, Occupational & Speech Therapy At [facility] Current Diagnoses Sacrococcygeal disorders, not elsewhere classified (02/25/24) Cystocele, unspecified (02/25/24) Unspecified dyspareunia (02/25/24) Flatulence (02/25/24) Fecal urgency (02/25/24) Visit Care Team Role Provider Type GENNA Haro Attending Provider Advanced Features Reporter Family Provider Primary Care Provider Referring Provider Specialty: Family Practice Address: [address] [place] [address], [facility] [place] [employer] Email: Plan Of Care PT-OP-B Current Condition Start: 01/29/24 13:09 Freq: Status: Active Protocol: Document 02/25/24 07:32 LRN (Rec: 02/25/24 08:24 LRN [id number]) Current Condition History of Current Condition Onset Date 2014 Current Complaints Having a lot of tailbone pn, heaviness ant lwr abdomen, discomfort in sup. History of Current Condition Has been a runner all her life , moved to [place] and was training for a 10 mile race, then felt like she was sitting on a tennis ball. Stopped running and saw a PT at [facility], but stopped after 2 months because she felt it wasn't helpful, other than what stopping running achieved . Pt is 4G4P and had significant tearing with the first childbirth, but normal and running for exercise until time of delivery w/o pain (oldest child is 18). 2nd she felt a moderate amount of discomfort in anterior pubic region. 3rd she had much pubic pain due to baby with large head and delivered fast was fast, < 3 hrs) resulting in post decreased sensation with intercourse. Pt calls needing stitches, but doesn't know the degree of tearing. 4th child was induced delivery and felt was normal, without pain. In August of 2023 she began running 1 mile/day for 20 days and had to stop because of new tailbone pain and heaviness with bulging in the perineum, but not the tennis ball feeling. When having intercourse feels like there is a tissue restricting insertion and is uncomfortable . She plans on discussing with her PCP about starting estrogen creme. She swam and walked with last 3 pregnancies. Currently, sometimes walking to the bathroom she has loss of small fecal matter at work and when out in public, mostly at home . C/o with intercourse she is not able to complete an orgasm, and it is not as intense since the of her 3rd child. Has been told she potentially she will need surgery to repair the PF or rectocele. Treatment Goals Patient/Caregiver Goals Pt goals: Decrease or eliminate tailbone pain (that started in 09/12 after trying running). Decrease heaviness in lower abdomen (2/10), minimal before starting running (1/10) [place] more comfortable Be able to incorporate wgt training in her ex program. ( Restore your core) Improve level of fecal continence. 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 PT-OP-T Assessment and Plan Start: 01/29/24 13:09 Freq: Status: Active Protocol: Document 02/25/24 07:32 LRN (Rec: 02/25/24 08:24 LRN [id number]) Physical Therapy Assessment Rehab Potential Rehabilitation Potential Good Evaluation Complexity Number of Personal Factors/Comorbidities 1-2 Number of Body Systems Impaired 4 or More Clinical Presentation at Evaluation Evolving Impairments Impairments Activity Tolerance,Pain,ROM, Sensation,Soft Tissue Mobility ,Strength,Transfers Goals Five Impairment Fecal incontinence Short Term Goal (STG) Improve posterior PF strength with pt able to control passing of gas in public. STG Duration 04/07/24 Cone Classifier Tender Goal (LTG) Improve posterior PF strength with pt able to walk to the bathroom wthout loss of small fecal matter at work and when out in public. LTG Duration 05/19/24 Four Impairment Dyspareunia and inability to complete orgasm. Short Term Goal (STG) Decrease discomfort with intercourse. STG Duration 04/07/24 Cone Classifier Tender Goal (LTG) Pt will be able to achieve orgasm with use of pre- intercourse activities and mindfulness activities. LTG Duration 05/19/24 Three Impairment Heaviness pain in lower abdomen (2/10) Short Term Goal (STG) Decrease constant feeling of heaviness in the lower abdoment to intermittent. STG Duration 04/07/24 Skilled Nursing Goal (LTG) Eliminate heaviness in the lower abdomen by pt able to demonstrate wgt lifting exercise with proper breathing mechanics. LTG Duration 05/19/24 Two Impairment Constant tailbone pain worse in sitting & supine Short Term Goal (STG) Eliminate tailbone pain with pt able to tolerate some supine lying for sleeping. STG Duration 04/07/24 Skilled Nursing Goal (LTG) Decrease or tailbone pain with pt able to comfortably sit for car rides. LTG Duration 05/19/24 One Impairment Lacks appropriate self care HEP. Short Term Goal (STG) Pt will be educated and able to demonstrate proper deep breathing methods for having a bowel mvmt to minimize an increase in core pressure. STG Duration 04/07/24 Skilled Nursing Goal (LTG) Pt will be independent in a self care HEP for PF strengthening in all positions , and able to incorporate wgt training in her ex program without onset of bulge in perineum (to include Restore your core program). LTG Duration 05/19/24 Assessment Summary Assessment Pt is a 48 yo female with c/o tailbone pn sitting and supine , heaviness in her lower abdomen, fecal incontinence of small amount trying to get to bathroom, pain with intercourse (with insertion being blocked), difficulty achieving full orgasm, and decreased ability to return to weight lifting exercise. She is mildly decreased with R hip IR, L hip ER (5 deg's), strength is decreased in L hip , and she has tightness of her R coccygeal muscles. She probably has perineal muscle dysfunction based on her history. PF assessment was not able to be performed today, due to time constraints as her history taking was quite extensive. PF assessment will be performed at her next visit. It is expected that the pt's therapy may be prolonged due to her multiple areas of dysfunction. The pt will benefit from skilled physical therapy to work towards achieving the above stated goals. Physical Therapy Plan Frequency and Duration Frequency of Treatment 1x/Week Duration of treatment (weeks) 12 Plan of Care Start Date 02/25/24 Plan of Care End Date 05/19/24 Therapeutic Interventions Therapeutic Interventions Home Exercise Program,Joint Mobilizations,Manual Therapy, Neuromuscular Re-education, Self-Care/Home Management,Soft Tissue Mobilization,Taping, Therapeutic Activities, Therapeutic Exercises Modalities Biofeedback,Cold Pack/Ice Massage,Electric Stimulation, Hot Packs Next Visit Focus/Plan Next Note Type Treatment Note Next Visit Plan Next: Assess deep breathing, vaginal and rectal PF assessment. Review bladder/ bowel diary and address appropriate areas. Subsequent visits: Sacral balancing. PF biofeedback assessment (vEMG). Ther Ex: PF & L hip strengthening, assess DR for abdominal strengthening. Improve mobility: hip R>L IR, L>R ER PROM. Manual - ?internal STM. POC: Pt education, Manual therapy. Biofeedback with vaginal or rectal sensor for PF >< awareness (?strength vs relax), Therapeutic Exercises, Therapeutic Activities, Neuromuscular Reeducation. Plan of Care Dates Plan of Care Start Date 02/25/24 Plan of Care End Date 05/19/24 Electronically Signed by: Randa Toledo, PT 02/25/242007 If you are in agreement with this Plan of Care, please return a signed and dated copy. I have reviewed this Plan of Care and certify that the skilled therapy services above are required to meet the patient?s needs. Physician Signature Date Printed Name and Credentials Clinical Instructor Signature Printed Name and Credentials
--- NOTE | 2024-03-03 12:53 | PT.OTN ---
Current Diagnoses Sacrococcygeal disorders, not elsewhere classified (03/03/24) Cystocele, unspecified (03/03/24) Unspecified dyspareunia (03/03/24) Flatulence (03/03/24) Fecal urgency (03/03/24) Physical Therapy Treatment Note PT-OP-A Visit Information Start: 01/29/24 13:09 Freq: Status: Active Protocol: Document 03/03/24 07:35 LRN (Rec: 03/03/24 08:21 LRN [id number]) Out-Patient Physical Therapy Visit Information Visit Information Visit Type Treatment Note Visit Start Time 07:35 Visit Stop Time 08:19 Visit Number 05/06 Evaluation Information Evaluation Date 02/25/24 Precautions Precautions IUD 2/7 yrs in. Seizures? Concussion age 9, thyroid disorder, 4G4P with much pain during 3rd , quick delivery and tearing of unknown degree. PT-OP-B Current Condition Start: 01/29/24 13:09 Freq: Status: Active Protocol: Document 02/25/24 07:32 LRN (Rec: 02/25/24 08:24 LRN [id number]) Current Condition History of Current Condition Onset Date 2014 Current Complaints Having a lot of tailbone pn, heaviness ant lwr abdomen, discomfort in sup. History of Current Condition Has been a runner all her life , moved to [place] and was training for a 10 mile race, then felt like she was sitting on a tennis ball. Stopped running and saw a PT at [facility], but stopped after 2 months because she felt it wasn't helpful, other than what stopping running achieved . Pt is 4G4P and had significant tearing with the first childbirth, but normal and running for exercise until time of delivery w/o pain (oldest child is 18). 2nd she felt a moderate amount of discomfort in anterior pubic region. 3rd she had much pubic pain due to baby with large head and delivered fast was fast, < 3 hrs) resulting in post decreased sensation with intercourse. Pt calls needing stitches, but doesn't know the degree of tearing. 4th child was induced delivery and felt was normal, without pain. In August of 2023 she began running 1 mile/day for 20 days and had to stop because of new tailbone pain and heaviness with bulging in the perineum, but not the tennis ball feeling. When having intercourse feels like there is a tissue restricting insertion and is uncomfortable . She plans on discussing with her PCP about starting estrogen creme. She swam and walked with last 3 pregnancies. Currently, sometimes walking to the bathroom she has loss of small fecal matter at work and when out in public, mostly at home . C/o with intercourse she is not able to complete an orgasm, and it is not as intense since the of her 3rd child. Has been told she potentially she will need surgery to repair the PF or rectocele. Treatment Goals Patient/Caregiver Goals Pt goals: Decrease or eliminate tailbone pain (that started in 09/12 after trying running). Decrease heaviness in lower abdomen (2/10), minimal before starting running (1/10) [place] more comfortable Be able to incorporate wgt training in her ex program. ( Restore your core) Improve level of fecal continence. 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 PT-OP-C Subjective Start: 01/29/24 13:09 Freq: Status: Active Protocol: Document 03/03/24 07:35 LRN (Rec: 03/03/24 08:21 LRN [id number]) OP-PT Subjective Patient Comments Patient Comments Forgot her papers, thinks her times btn voids were 2 or 4 hrs depending on the day, and once in night. 8-10 sec urinations. Thinks fluid intake was 40-50 oz/day. BM's mostly in AM, type 3,4,5. Wore pantiliner daily for 8-9 yrs (changing 1-2x/day), running this summer, feels the leakage is blocked, so don't have to wear pantiliner daily. Patient Questionnaires Pelvic Floor Distress Inventory Questionnaire (PFDI- SF20) Pelvic Floor Score submitted completed form 03/03. PT-OP-I Pelvic Floor Start: 01/29/24 13:09 Freq: Status: Active Protocol: Document 02/25/24 07:32 LRN (Rec: 02/25/24 18:10 LRN [id number]) Pelvic Floor Assessment Comments Pelvic Floor Comments PF assessment deferred to next visit due to time constraint. Externally, R coccygeal muscles are tight. PT-OP-J Posture/Palpation/Skin Start: 01/29/24 13:09 Freq: Status: Active Protocol: Document 02/25/24 07:32 LRN (Rec: 02/25/24 08:24 LRN [id number]) Posture Evaluation Position Standing Shoulder Posture (L) Elevated Scapula Posture (R) Retracted Pelvis Posture (L) PSIS Posterior,(L) ASIS Posterior Comments Posture Comments Dowagers hump, Sacrum L rotated, R PSIS is more lateral than L. In sitting: Pt sits with legs crossed, reportedly for comfort. PT-OP-K Range of Motion Start: 01/29/24 13:09 Freq: Status: Active Protocol: Document 02/25/24 07:32 LRN (Rec: 02/25/24 08:24 LRN [id number]) Lumbar Spine Range of Motion Lumbar Spine Active Degrees Testing Position Standing Flexion 110 Extension 30 Rotation Left 45 Rotation Right 40 Lateral Flexion Left 18 Lateral Flexion Right 18 Hip Goniometric Range of Motion Hip Right Passive Testing Position Supine Internal Rotation 25 External Rotation 75 Left Passive Testing Position Supine Internal Rotation 30 External Rotation 70 PT-OP-M Strength Start: 01/29/24 13:09 Freq: Status: Active Protocol: Document 02/25/24 07:32 LRN (Rec: 02/25/24 08:24 LRN [id number]) Hip Strength Hip Manual Muscle Testing Right Flexion (L2) 3+ Fair+ Internal Rotation 4+ Good+ Left Flexion (L2) 3+ Fair+ Extension (S1) 3 Fair Abduction 3+ Fair+ External Rotation 3+ Fair+ Internal Rotation 4+ Good+ PT-OP-Q Treatments Start: 01/29/24 13:09 Freq: Status: Active Protocol: Document 03/03/24 07:35 LRN (Rec: 03/03/24 08:21 LRN [id number]) Therapeutic Exercises Supine Exercises Kegels, quick/long Reps/Minutes 5' Comments Extra time for positioning. Deep BReathing Supine Exercise Name Training started in sit, transferred to supine for better pt awareness. Reps/Minutes 6 sec in/6 sec out (5') Comments Cued hand on chest and one on belly. Sitting Exercises Kegels, quick/long hold Reps/Minutes 6' Comments extra time taken for positional change Standing Exercises Kegels, quick/long hold Reps/Minutes 6' Comments extra time taken for positional change Neuro Re-Education Treatment Coordination Activities Transfers with Kegel/breath Details Sup<>sit<>stand w/Kegel/breath Reps/Duration 10' Comments Constant cuing during transfers for exhale & inhale and Kegel. Self-Care/Home Management Treatment Education Other Education 11' Discussed at length bladder diary what pt could remember, discussed fluid intake (AM/PM), urinary voiding frequency, & nighttime voiding frequency, times between voids and voiding times, types of intake fluids , bladder irritants, and ?just in case? voiding. Activities Self-Care/Home Management Activities Issued & reviewed HEP: Kegels (quick, long hold) & Deep breathing. PT-OP-T Assessment and Plan Start: 01/29/24 13:09 Freq: Status: Active Protocol: Document 03/03/24 07:35 LRN (Rec: 03/03/24 08:21 LRN [id number]) Physical Therapy Assessment Goals Five Impairment Fecal incontinence Short Term Goal (STG) Improve posterior PF strength with pt able to control passing of gas in public. STG Duration 04/07/24 Assayer Helper Goal (LTG) Improve posterior PF strength with pt able to walk to the bathroom wthout loss of small fecal matter at work and when out in public. LTG Duration 05/19/24 Four Impairment Dyspareunia and inability to complete orgasm. Short Term Goal (STG) Decrease discomfort with intercourse. STG Duration 04/07/24 Assayer Helper Goal (LTG) Pt will be able to achieve orgasm with use of pre- intercourse activities and mindfulness activities. LTG Duration 05/19/24 Three Impairment Heaviness pain in lower abdomen (2/10) Short Term Goal (STG) Decrease constant feeling of heaviness in the lower abdoment to intermittent. STG Duration 04/07/24 Assayer Helper Goal (LTG) Eliminate heaviness in the lower abdomen by pt able to demonstrate wgt lifting exercise with proper breathing mechanics. LTG Duration 05/19/24 Two Impairment Constant tailbone pain worse in sitting & supine Short Term Goal (STG) Eliminate tailbone pain with pt able to tolerate some supine lying for sleeping. STG Duration 04/07/24 [facility] Goal (LTG) Decrease or tailbone pain with pt able to comfortably sit for car rides. LTG Duration 05/19/24 One Impairment Lacks appropriate self care HEP. Short Term Goal (STG) Pt will be educated and able to demonstrate proper deep breathing methods for having a bowel mvmt to minimize an increase in core pressure. 03/03/24: Pt educated in proper core pressure mgmt for transfers. STG Duration 04/07/24 progressed 03/03/24 (need for BM's) Assayer Helper Goal (LTG) Pt will be independent in a self care HEP for PF strengthening in all positions , and able to incorporate wgt training in her ex program without onset of bulge in perineum (to include Restore your core program). 03/03/24: HEP: Kegels (quick , long hold) & Deep breathing. LTG Duration 05/19/24 progressed 03/03/24 Assessment Summary Assessment 48 yo female w/tailbone pn ( sit/sup), R coccygeal muscles tightness, & probable perineal muscle dysfunction based on history, lower abdominal heaviness, small fecal incontinence trying to get to bathroom, pain w/ intercourse (insertion being blocked), difficulty achieving full orgasm, mildly dec'd R hip IR/L hip ER ROM (5 deg's) and decr'd ability to return to exercise (wgt lifting). She is mildly decr'd w/R hip IR, L hip ER (5 deg's), strength decr'd in L hip. Today pt presents with PF weakness, notably with endurance holding in all positions (TA substitution), and quick contraction strength in sit and stand. Deep breathing is good with self cuing of hands on chest & abdomen. PFDI 20 questionnaire submitted. Physical Therapy Plan Frequency and Duration Frequency of Treatment 1x/Week Duration of treatment (weeks) 12 Plan of Care Start Date 02/25/24 Plan of Care End Date 05/19/24 Next Visit Focus/Plan Next Note Type Treatment Note Next Visit Plan Next: vaginal and rectal manual PF assessment. Review deep breathing. Subsequent visits: Sacral balancing. Neuro-nancy training of PF from substitute ms. Ther Ex: PF & L hip strengthening, assess DR for abdominal strengthening. Improve mobility: hip R>L IR, L>R ER PROM. Manual - ?internal STM. POC: Pt education, Manual therapy. Biofeedback with vaginal or rectal sensor for PF >< awareness (?strength vs relax), Therapeutic Exercises, Therapeutic Activities, Neuromuscular Reeducation.
--- NOTE | 2024-03-10 16:20 | PT.OTN ---
Current Diagnoses Sacrococcygeal disorders, not elsewhere classified (03/10/24) Cystocele, unspecified (03/10/24) Unspecified dyspareunia (03/10/24) Flatulence (03/10/24) Fecal urgency (03/10/24) Physical Therapy Treatment Note PT-OP-A Visit Information Start: 01/29/24 13:09 Freq: Status: Active Protocol: Document 03/10/24 07:32 LRN (Rec: 03/10/24 08:22 LRN [id number]) Out-Patient Physical Therapy Visit Information Visit Information Visit Type Treatment Note Visit Start Time 07:32 Visit Stop Time 08:18 Visit Number 3 Evaluation Information Evaluation Date 02/25/24 Precautions Precautions IUD 2/7 yrs in. Seizures? Concussion age 9, thyroid disorder, 4G4P with much pain during 3rd , quick delivery and tearing of unknown degree. PT-OP-B Current Condition Start: 01/29/24 13:09 Freq: Status: Active Protocol: Document 02/25/24 07:32 LRN (Rec: 02/25/24 08:24 LRN [id number]) Current Condition History of Current Condition Onset Date 2014 Current Complaints Having a lot of tailbone pn, heaviness ant lwr abdomen, discomfort in sup. History of Current Condition Has been a runner all her life , moved to [place] and was training for a 10 mile race, then felt like she was sitting on a tennis ball. Stopped running and saw a PT at [facility]ist clinic, but stopped after 2 months because she felt it wasn't helpful, other than what stopping running achieved . Pt is 4G4P and had significant tearing with the first childbirth, but normal and running for exercise until time of delivery w/o pain (oldest child is 18). 2nd she felt a moderate amount of discomfort in anterior pubic region. 3rd she had much pubic pain due to baby with large head and delivered fast was fast, < 3 hrs) resulting in post decreased sensation with intercourse. Pt calls needing stitches, but doesn't know the degree of tearing. 4th child was induced delivery and felt was normal, without pain. In August of 2023 she began running 1 mile/day for 20 days and had to stop because of new tailbone pain and heaviness with bulging in the perineum, but not the tennis ball feeling. When having intercourse feels like there is a tissue restricting insertion and is uncomfortable . She plans on discussing with her PCP about starting estrogen creme. She swam and walked with last 3 pregnancies. Currently, sometimes walking to the bathroom she has loss of small fecal matter at work and when out in public, mostly at home . C/o with intercourse she is not able to complete an orgasm, and it is not as intense since the of her 3rd child. Has been told she potentially she will need surgery to repair the PF or rectocele. Treatment Goals Patient/Caregiver Goals Pt goals: Decrease or eliminate tailbone pain (that started in 09/12 after trying running). Decrease heaviness in lower abdomen (2/10), minimal before starting running (1/10) [place] more comfortable Be able to incorporate wgt training in her ex program. ( Restore your core) Improve level of fecal continence. 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 PT-OP-C Subjective Start: 01/29/24 13:09 Freq: Status: Active Protocol: Document 03/10/24 07:32 LRN (Rec: 03/10/24 08:22 LRN [id number]) OP-PT Subjective Patient Comments Patient Comments States she hasn't done deep breathing for pain reduction. PT-OP-I Pelvic Floor Start: 01/29/24 13:09 Freq: Status: Active Protocol: Document 03/10/24 07:32 LRN (Rec: 03/10/24 08:22 LRN [id number]) Pelvic Floor Assessment SEMG (uV) Baseline 2.3 Quick Contraction 12.0 10 Second Contraction 6.1 Recruitment Pattern Good Relaxation Fair Holding Fair Stability of Hold Poor/Slow SEMG Stability of Rest Good Comments Pelvic Floor Comments Pt supine with legs on bolster . Marker #3 is supine Quick Flicks : 10 reps strength (uV's): avg work 12.0, avg rest 5.1. 20 reps strength (uV's): avg work 10.2, avg rest 4.1. Long Holds: 10 reps strength (uV's): avg work 6.1, avg rest 2.3. 20 reps strength (uV's): avg work 6.0, avg rest 2.3. PT-OP-J Posture/Palpation/Skin Start: 01/29/24 13:09 Freq: Status: Active Protocol: Document 02/25/24 07:32 LRN (Rec: 02/25/24 08:24 LRN [id number]) Posture Evaluation Position Standing Shoulder Posture (L) Elevated Scapula Posture (R) Retracted Pelvis Posture (L) PSIS Posterior,(L) ASIS Posterior Comments Posture Comments Dowagers hump, Sacrum L rotated, R PSIS is more lateral than L. In sitting: Pt sits with legs crossed, reportedly for comfort. PT-OP-K Range of Motion Start: 01/29/24 13:09 Freq: Status: Active Protocol: Document 02/25/24 07:32 LRN (Rec: 02/25/24 08:24 LRN [id number]) Lumbar Spine Range of Motion Lumbar Spine Active Degrees Testing Position Standing Flexion 110 Extension 30 Rotation Left 45 Rotation Right 40 Lateral Flexion Left 18 Lateral Flexion Right 18 Hip Goniometric Range of Motion Hip Right Passive Testing Position Supine Internal Rotation 25 External Rotation 75 Left Passive Testing Position Supine Internal Rotation 30 External Rotation 70 PT-OP-M Strength Start: 01/29/24 13:09 Freq: Status: Active Protocol: Document 02/25/24 07:32 LRN (Rec: 02/25/24 08:24 LRN [id number]) Hip Strength Hip Manual Muscle Testing Right Flexion (L2) 3+ Fair+ Internal Rotation 4+ Good+ Left Flexion (L2) 3+ Fair+ Extension (S1) 3 Fair Abduction 3+ Fair+ External Rotation 3+ Fair+ Internal Rotation 4+ Good+ PT-OP-Q Treatments Start: 01/29/24 13:09 Freq: Status: Active Protocol: Document 03/10/24 07:32 LRN (Rec: 03/10/24 08:22 LRN [id number]) Therapeutic Exercises Supine Exercises Kegels, quick/long Supine Exercise Name Quick and Long hold Kegels Equipment Used Bolster under knees. Reps/Minutes 2 SH/4 SR x 20, 10 SH/20 SR x 20. Comments Extra time needed for positioning and training for ex Sitting Exercises Coccygeal ms stretch Sitting Exercise Name Miracle ball stretching Reps/Minutes 5' Neuro Re-Education Treatment Coordination Activities Transfers with Kegel/breath Details Review Reps/Duration 3' Other Activities Kegels in isolation of ABdoms Details Training with visual feedback Reps/Duration 5 Self-Care/Home Management Treatment Activities Self-Care/Home Management Activities HEP: roll in/outs PT-OP-T Assessment and Plan Start: 01/29/24 13:09 Freq: Status: Active Protocol: Document 03/10/24 07:32 LRN (Rec: 03/10/24 08:22 LRN [id number]) Physical Therapy Assessment Goals Five Impairment Fecal incontinence Short Term Goal (STG) Improve posterior PF strength with pt able to control passing of gas in public. STG Duration 04/07/24 Pen Maker Goal (LTG) Improve posterior PF strength with pt able to walk to the bathroom wthout loss of small fecal matter at work and when out in public. LTG Duration 05/19/24 Four Impairment Dyspareunia and inability to complete orgasm. Short Term Goal (STG) Decrease discomfort with intercourse. STG Duration 04/07/24 Pen Maker Goal (LTG) Pt will be able to achieve orgasm with use of pre- intercourse activities and mindfulness activities. LTG Duration 05/19/24 Three Impairment Heaviness pain in lower abdomen (2/10) Short Term Goal (STG) Decrease constant feeling of heaviness in the lower abdoment to intermittent. STG Duration 04/07/24 Pen Maker Goal (LTG) Eliminate heaviness in the lower abdomen by pt able to demonstrate wgt lifting exercise with proper breathing mechanics. LTG Duration 05/19/24 Two Impairment Constant tailbone pain worse in sitting & supine Short Term Goal (STG) Eliminate tailbone pain with pt able to tolerate some supine lying for sleeping. STG Duration 04/07/24 Nursing Home Goal (LTG) Decrease or tailbone pain with pt able to comfortably sit for car rides. LTG Duration 05/19/24 One Impairment Lacks appropriate self care HEP. Short Term Goal (STG) Pt will be educated and able to demonstrate proper deep breathing methods for having a bowel mvmt to minimize an increase in core pressure. 03/03/24: Pt educated in proper core pressure mgmt for transfers. STG Duration 04/07/24 progressed 03/03/24 (need for BM's) Nursing Home Goal (LTG) Pt will be independent in a self care HEP for PF strengthening in all positions , and able to incorporate wgt training in her ex program without onset of bulge in perineum (to include Restore your core program). 03/03/24: HEP: Kegels (quick , long hold) & Deep breathing. LTG Duration 05/19/24 progressed 03/03/24 Assessment Summary Assessment 48 yo female w/tailbone pain ( sit/sup), R coccygeal muscles tightness, & probable perineal muscle dysfunction based on history, lower abdominal heaviness, small fecal incontinence trying to get to bathroom, dyspareunia ( ?insertion being blocked), difficulty achieving full orgasm, mildly dec'd R hip IR/ L hip ER ROM (5 deg's) and decr'd ability to return to exercise (wgt lifting), mildly decr'd w/R hip IR, L hip ER ( 5 deg's), strength decr'd in L hip. Today with quick kegels, pt shows good strength and ability to relax her PF. With long holds her PF ms fatigue after 2 secs and abdominals/ gluteals assist with PF contractions. Pt also tends to hold her breath during kegel, but also uses exhale to help maintain a PF contraction. Physical Therapy Plan Frequency and Duration Frequency of Treatment 1x/Week Duration of treatment (weeks) 12 Plan of Care Start Date 02/25/24 Plan of Care End Date 05/19/24 Next Visit Focus/Plan Next Note Type Treatment Note Next Visit Plan Next: Manual Rectal assessment & stretch if needed . Review deep breathing. Neuro-nancy training of PF from substitute ms. Subsequent visit: Sacral balancing. Ther Ex: PF & L hip strengthening, assess DR for abdominal strengthening. Improve mobility: hip R>L IR, L>R ER PROM. Manual - ?internal STM. POC: Pt education, Manual therapy. Biofeedback with vaginal or rectal sensor for PF >< awareness (?strength vs relax), Therapeutic Exercises, Therapeutic Activities, Neuromuscular Reeducation.
--- NOTE | 2024-03-21 15:49 | PT.OTN ---
Current Diagnoses Sacrococcygeal disorders, not elsewhere classified (03/21/24) Cystocele, unspecified (03/21/24) Unspecified dyspareunia (03/21/24) Flatulence (03/21/24) Fecal urgency (03/21/24) Physical Therapy Treatment Note PT-OP-A Visit Information Start: 01/29/24 13:09 Freq: Status: Active Protocol: Document 03/21/24 14:33 LRN (Rec: 03/21/24 15:48 LRN [id number]) Out-Patient Physical Therapy Visit Information Visit Information Visit Type Treatment Note Visit Start Time 14:33 Visit Stop Time 15:16 Visit Number 07/04 Evaluation Information Evaluation Date 02/25/24 Precautions Precautions IUD 2/7 yrs in. Seizures? Concussion age 9, thyroid disorder, 4G4P with much pain during 3rd , quick delivery and tearing of unknown degree. PT-OP-B Current Condition Start: 01/29/24 13:09 Freq: Status: Active Protocol: Document 02/25/24 07:32 LRN (Rec: 02/25/24 08:24 LRN [id number]) Current Condition History of Current Condition Onset Date 2014 Current Complaints Having a lot of tailbone pn, heaviness ant lwr abdomen, discomfort in sup. History of Current Condition Has been a runner all her life , moved to [place] and was training for a 10 mile race, then felt like she was sitting on a tennis ball. Stopped running and saw a PT [facility], but stopped after 2 months because she felt it wasn't helpful, other than what stopping running achieved . Pt is 4G4P and had significant tearing with the first childbirth, but normal and running for exercise until time of delivery w/o pain (oldest child is 18). 2nd she felt a moderate amount of discomfort in anterior pubic region. 3rd she had much pubic pain due to baby with large head and delivered fast was fast, < 3 hrs) resulting in post decreased sensation with intercourse. Pt calls needing stitches, but doesn't know the degree of tearing. 4th child was induced delivery and felt was normal, without pain. In August of 2023 she began running 1 mile/day for 20 days and had to stop because of new tailbone pain and heaviness with bulging in the perineum, but not the tennis ball feeling. When having intercourse feels like there is a tissue restricting insertion and is uncomfortable . She plans on discussing with her PCP about starting estrogen creme. She swam and walked with last 3 pregnancies. Currently, sometimes walking to the bathroom she has loss of small fecal matter at work and when out in public, mostly at home . C/o with intercourse she is not able to complete an orgasm, and it is not as intense since the of her 3rd child. Has been told she potentially she will need surgery to repair the PF or rectocele. Treatment Goals Patient/Caregiver Goals Pt goals: Decrease or eliminate tailbone pain (that started in 09/12 after trying running). Decrease heaviness in lower abdomen (2/10), minimal before starting running (1/10) [place] more comfortable Be able to incorporate wgt training in her ex program. ( Restore your core) Improve level of fecal continence. 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 PT-OP-C Subjective Start: 01/29/24 13:09 Freq: Status: Active Protocol: Document 03/21/24 14:33 LRN (Rec: 03/21/24 15:48 LRN [id number]) OP-PT Subjective Patient Comments Patient Comments No change. Finds it difficult to do kegel while breathing. Not having as much coccyx pain now that she is not running, and using roller to stretch out tight spots of hip and buttock. Sometimes urgent BM's if missed it morning, then only have secs to get to bathroom. PT-OP-I Pelvic Floor Start: 01/29/24 13:09 Freq: Status: Active Protocol: Document 03/21/24 14:33 LRN (Rec: 03/21/24 15:48 LRN [id number]) Pelvic Floor Assessment Pelvic Clock Inter-Rectal Assessment Not able to relax pt enough to assess. External anal sphincter strength appears to be 3/5. Prolapse Cystocele Grade 3 Rectocele Grade 1 Prolapse Comments Bladder does not extend past hymen location Perineal Descent Resting Absent Bearing Present Contraction Ability Voluntary Contraction Moderate Voluntary Relaxation Weak Manual Muscle Testing Left 2 Manual Muscle Testing Right 3 Manual Muscle Testing Anterior 2 Manual Muscle Testing Posterior 3 Muscle Endurance (Seconds) 4 Number of Quick Contractions In 10 4 Seconds Comments Pelvic Floor Comments Anterior PF strength is 3/5 R, 2/5 L. Pt is slow to contract and slower to relax. PT-OP-J Posture/Palpation/Skin Start: 01/29/24 13:09 Freq: Status: Active Protocol: Document 02/25/24 07:32 LRN (Rec: 02/25/24 08:24 LRN [id number]) Posture Evaluation Position Standing Shoulder Posture (L) Elevated Scapula Posture (R) Retracted Pelvis Posture (L) PSIS Posterior,(L) ASIS Posterior Comments Posture Comments Dowagers hump, Sacrum L rotated, R PSIS is more lateral than L. In sitting: Pt sits with legs crossed, reportedly for comfort. PT-OP-K Range of Motion Start: 01/29/24 13:09 Freq: Status: Active Protocol: Document 02/25/24 07:32 LRN (Rec: 02/25/24 08:24 LRN [id number]) Lumbar Spine Range of Motion Lumbar Spine Active Degrees Testing Position Standing Flexion 110 Extension 30 Rotation Left 45 Rotation Right 40 Lateral Flexion Left 18 Lateral Flexion Right 18 Hip Goniometric Range of Motion Hip Right Passive Testing Position Supine Internal Rotation 25 External Rotation 75 Left Passive Testing Position Supine Internal Rotation 30 External Rotation 70 PT-OP-M Strength Start: 01/29/24 13:09 Freq: Status: Active Protocol: Document 02/25/24 07:32 LRN (Rec: 02/25/24 08:24 LRN [id number]) Hip Strength Hip Manual Muscle Testing Right Flexion (L2) 3+ Fair+ Internal Rotation 4+ Good+ Left Flexion (L2) 3+ Fair+ Extension (S1) 3 Fair Abduction 3+ Fair+ External Rotation 3+ Fair+ Internal Rotation 4+ Good+ PT-OP-Q Treatments Start: 01/29/24 13:09 Freq: Status: Active Protocol: Document 03/21/24 14:33 LRN (Rec: 03/21/24 15:48 LRN [id number]) Therapeutic Exercises Supine Exercises Kegels, quick/long Supine Exercise Name Quick and Long hold Kegels Reps/Minutes 2 SH/4 SR x 20, 10 SH/20 SR x 20. Comments Extra time needed for positioning and training for ex Deep BReathing Supine Exercise Name Deep Breathing for 6 sec breaths Reps/Minutes 6 sec in/6 sec out (5') Comments Pt able to perform w/o cuing. Sidelying Exercises PF relaxation trng Sidelying Exercise Name PF relaxation and anal sphincter palpation stretch Reps/Minutes 7' Comments Extra time taken for slow progression into anus, but pt not able to relax. Neuro Re-Education Treatment Other Activities Kegels in isolation of ABdoms Details Trng for long holds & 4 sec holds Reps/Duration 15' Comments Poor stability with hold and some abdominal increase in tightening after 3 secs. Quick Contractions show good ability to isolate from ABdoms , but slow to relax PF. Self-Care/Home Management Treatment Activities Self-Care/Home Management Activities I/S pt to work on PF hold for 4 secs with retightening at 3 secs, and adding a sec to the hold every 2 days. Pt to start contraction on a inhale. PT-OP-T Assessment and Plan Start: 01/29/24 13:09 Freq: Status: Active Protocol: Document 03/21/24 14:33 LRN (Rec: 03/21/24 15:48 LRN [id number]) Physical Therapy Assessment Goals Five Impairment Fecal incontinence Short Term Goal (STG) Improve posterior PF strength with pt able to control passing of gas in public. 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 LTG Duration 05/19/24 Four Impairment Dyspareunia and inability to complete orgasm. Short Term Goal (STG) Decrease discomfort with intercourse. STG Duration 04/07/24 Detention Goal (LTG) Pt will be able to achieve orgasm with use of pre- intercourse activities and mindfulness activities. LTG Duration 05/19/24 Three Impairment Heaviness pain in lower abdomen (2/10) Short Term Goal (STG) Decrease constant feeling of heaviness in the lower abdoment to intermittent. STG Duration 04/07/24 Offset Printing Pressmen Goal (LTG) Eliminate heaviness in the lower abdomen by pt able to demonstrate wgt lifting exercise with proper breathing mechanics. LTG Duration 05/19/24 Two Impairment Constant tailbone pain worse in sitting & supine Short Term Goal (STG) Eliminate tailbone pain with pt able to tolerate some supine lying for sleeping. STG Duration 04/07/24 Detention Goal (LTG) Decrease or tailbone pain with pt able to comfortably sit for car rides. LTG Duration 05/19/24 One Impairment Lacks appropriate self care HEP. Short Term Goal (STG) Pt will be educated and able to demonstrate proper deep breathing methods for having a bowel mvmt to minimize an increase in core pressure. 03/03/24: Pt educated in proper core pressure mgmt for transfers. STG Duration 04/07/24 progressed 03/03/24 (need for BM's) Offset [employer]ing Pressmen Goal (LTG) Pt will be independent in a self care HEP for PF strengthening in all positions , and able to incorporate wgt training in her ex program without onset of bulge in perineum (to include Restore your core program). 03/03/24: HEP: Kegels (quick , long hold) & Deep breathing. LTG Duration 05/19/24 progressed 03/03/24 Assessment Summary Assessment 48 yo female w/tailbone pain ( sit/sup), ?R coccygeal muscles tightness, & probable perineal muscle dysfunction based on history, lower abdominal heaviness, small fecal incontinence trying to get to bathroom, dyspareunia (?insertion being blocked), difficulty achieving full orgasm, mildly dec'd hip mobility and sterngth, and decr'd ability to return to exercise (wgt lifting). Today , pt reports less tailbone pain due to less running. She demonstrates good deep breathing technique, quick contractions appear isolated from ABdoms; Long hold stability of hold is fair>poor ; & after 3 secs PF weakens. Internal vaginal PF assessment indicates weak L anterior/ lateral wall strength; and poor drawing up/in of PF with contraction. BM leakage probably from incr in core pressure and PF weakness. Physical Therapy Plan Frequency and Duration Frequency of Treatment 1x/Week Duration of treatment (weeks) 12 Plan of Care Start Date 02/25/24 Plan of Care End Date 05/19/24 Next Visit Focus/Plan Next Note Type Treatment Note Next Visit Plan Next: Review core pressure mgmt and teach for BMs, teach coccygeal ms stretch with Miracle ball or swim noodle. Sacral balancing. PF strengthening on wedge & L hip/PF strengthening, Improve mobility: hip R>L IR, L>R ER PROM, & Neuro-nancy training of PF from substitute ms. Ther Ex: assess DR for abdominal strengthening. Manual - ?internal STM. POC: Pt education, Manual therapy. Biofeedback with vaginal or rectal sensor for PF >< awareness (?strength vs relax), Therapeutic Exercises, Therapeutic Activities, Neuromuscular Reeducation.
--- NOTE | 2024-03-27 18:44 | PT.OTN ---
Current Diagnoses Sacrococcygeal disorders, not elsewhere classified (03/27/24) Cystocele, unspecified (03/27/24) Unspecified dyspareunia (03/27/24) Flatulence (03/27/24) Fecal urgency (03/27/24) Physical Therapy Treatment Note PT-OP-A Visit Information Start: 01/29/24 13:09 Freq: Status: Active Protocol: Document 03/27/24 07:32 LRN (Rec: 03/27/24 08:19 LRN [id number]) Out-Patient Physical Therapy Visit Information Visit Information Visit Type Treatment Note Visit Start Time 07:32 Visit Stop Time 08:13 Visit Number 08/03 Evaluation Information Evaluation Date 02/25/24 Precautions Precautions IUD 2/7 yrs in. Seizures? Concussion age 9, thyroid disorder, 4G4P with much pain during 3rd , quick delivery and tearing of unknown degree. PT-OP-B Current Condition Start: 01/29/24 13:09 Freq: Status: Active Protocol: Document 02/25/24 07:32 LRN (Rec: 02/25/24 08:24 LRN [id number]) Current Condition History of Current Condition Onset Date 2014 Current Complaints Having a lot of tailbone pn, heaviness ant lwr abdomen, discomfort in sup. History of Current Condition Has been a runner all her life , moved to [place] and was training for a 10 mile race, then felt like she was sitting on a tennis ball. Stopped running and saw a PT at [facility], but stopped after 2 months because she felt it wasn't helpful, other than what stopping running achieved . Pt is 4G4P and had significant tearing with the first childbirth, but normal and running for exercise until time of delivery w/o pain (oldest child is 18). 2nd she felt a moderate amount of discomfort in anterior pubic region. 3rd she had much pubic pain due to baby with large head and delivered fast was fast, < 3 hrs) resulting in post decreased sensation with intercourse. Pt calls needing stitches, but doesn't know the degree of tearing. 4th child was induced delivery and felt was normal, without pain. In August of 2023 she began running 1 mile/day for 20 days and had to stop because of new tailbone pain and heaviness with bulging in the perineum, but not the tennis ball feeling. When having intercourse feels like there is a tissue restricting insertion and is uncomfortable . She plans on discussing with her PCP about starting estrogen creme. She swam and walked with last 3 pregnancies. Currently, sometimes walking to the bathroom she has loss of small fecal matter at work and when out in public, mostly at home . C/o with intercourse she is not able to complete an orgasm, and it is not as intense since the of her 3rd child. Has been told she potentially she will need surgery to repair the PF or rectocele. Treatment Goals Patient/Caregiver Goals Pt goals: Decrease or eliminate tailbone pain (that started in 09/12 after trying running). Decrease heaviness in lower abdomen (2/10), minimal before starting running (1/10) [place] more comfortable Be able to incorporate wgt training in her ex program. ( Restore your core) Improve level of fecal continence. 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 PT-OP-C Subjective Start: 01/29/24 13:09 Freq: Status: Active Protocol: Document 03/27/24 07:32 LRN (Rec: 03/27/24 08:19 LRN [id number]) OP-PT Subjective Patient Comments Patient Comments No change. PT-OP-I Pelvic Floor Start: 01/29/24 13:09 Freq: Status: Active Protocol: Document 03/21/24 14:33 LRN (Rec: 03/21/24 15:48 LRN [id number]) Pelvic Floor Assessment Pelvic Clock Inter-Rectal Assessment Not able to relax pt enough to assess. External anal sphincter strength appears to be 3/5. Prolapse Cystocele Grade 3 Rectocele Grade 1 Prolapse Comments Bladder does not extend past hymen location Perineal Descent Resting Absent Bearing Present Contraction Ability Voluntary Contraction Moderate Voluntary Relaxation Weak Manual Muscle Testing Left 2 Manual Muscle Testing Right 3 Manual Muscle Testing Anterior 2 Manual Muscle Testing Posterior 3 Muscle Endurance (Seconds) 4 Number of Quick Contractions In 10 4 Seconds Comments Pelvic Floor Comments Anterior PF strength is 3/5 R, 2/5 L. Pt is slow to contract and slower to relax. PT-OP-J Posture/Palpation/Skin Start: 01/29/24 13:09 Freq: Status: Active Protocol: Document 02/25/24 07:32 LRN (Rec: 02/25/24 08:24 LRN [id number]) Posture Evaluation Position Standing Shoulder Posture (L) Elevated Scapula Posture (R) Retracted Pelvis Posture (L) PSIS Posterior,(L) ASIS Posterior Comments Posture Comments Dowagers hump, Sacrum L rotated, R PSIS is more lateral than L. In sitting: Pt sits with legs crossed, reportedly for comfort. PT-OP-K Range of Motion Start: 01/29/24 13:09 Freq: Status: Active Protocol: Document 02/25/24 07:32 LRN (Rec: 02/25/24 08:24 LRN [id number]) Lumbar Spine Range of Motion Lumbar Spine Active Degrees Testing Position Standing Flexion 110 Extension 30 Rotation Left 45 Rotation Right 40 Lateral Flexion Left 18 Lateral Flexion Right 18 Hip Goniometric Range of Motion Hip Right Passive Testing Position Supine Internal Rotation 25 External Rotation 75 Left Passive Testing Position Supine Internal Rotation 30 External Rotation 70 PT-OP-M Strength Start: 01/29/24 13:09 Freq: Status: Active Protocol: Document 02/25/24 07:32 LRN (Rec: 02/25/24 08:24 LRN [id number]) Hip Strength Hip Manual Muscle Testing Right Flexion (L2) 3+ Fair+ Internal Rotation 4+ Good+ Left Flexion (L2) 3+ Fair+ Extension (S1) 3 Fair Abduction 3+ Fair+ External Rotation 3+ Fair+ Internal Rotation 4+ Good+ PT-OP-Q Treatments Start: 01/29/24 13:09 Freq: Status: Active Protocol: Document 03/27/24 07:32 LRN (Rec: 03/27/24 08:19 LRN [id number]) Manual Therapy Treatment Consent Patient gave verbal consent for manual Yes treatment Soft Tissue Mobilization SIJ Body Location Sacral balancing Mobilization Type Sustained Pressure Intensity/Depth Moderate Body Position Prone Comments Prone: Correcting decreased mobility of: R sacral rot (PA of R lat sacrum) L sacral inferior mob, Sacral sheer to R, L YAYA PA mob, Ischial Tub PA mob, Ischial-Ilial rebalancing & Ischiums-Iliums balancin pt balancing. ILU Massage Body Location Abdomen Intensity/Depth Moderate Body Position Supine Comments PT education in massage, example of massage, then teaching pt to self massage. Self-Care/Home Management Treatment Education Other Education Educated pt in positioning for BM's (feet on stool), and for program of deep breathing without valsalva maneuver for BM. Activities Self-Care/Home Management Activities Issued & reviewed handout for ILU bowel massage. PT-OP-T Assessment and Plan Start: 01/29/24 13:09 Freq: Status: Active Protocol: Document 03/27/24 07:32 LRN (Rec: 03/27/24 08:19 LRN [id number]) Physical Therapy Assessment Goals Five Impairment Fecal incontinence Short Term Goal (STG) Improve posterior PF strength with pt able to control passing of gas in public. STG Duration 04/07/24 Longterm Goal (LTG) Improve posterior PF strength with pt able to walk to the bathroom wthout loss of small fecal matter at work and when out in public. LTG Duration 05/19/24 Four Impairment Dyspareunia and inability to complete orgasm. Short Term Goal (STG) Decrease discomfort with intercourse. STG Duration 04/07/24 Senior Internal Auditor Goal (LTG) Pt will be able to achieve orgasm with use of pre- intercourse activities and mindfulness activities. LTG Duration 05/19/24 Three Impairment Heaviness pain in lower abdomen (2/10) Short Term Goal (STG) Decrease constant feeling of heaviness in the lower abdoment to intermittent. STG Duration 04/07/24 Senior Internal Auditor Goal (LTG) Eliminate heaviness in the lower abdomen by pt able to demonstrate wgt lifting exercise with proper breathing mechanics. LTG Duration 05/19/24 Two Impairment Constant tailbone pain worse in sitting & supine Short Term Goal (STG) Eliminate tailbone pain with pt able to tolerate some supine lying for sleeping. STG Duration 04/07/24 Longterm Goal (LTG) Decrease or tailbone pain with pt able to comfortably sit for car rides. LTG Duration 05/19/24 One Impairment Lacks appropriate self care HEP. Short Term Goal (STG) Pt will be educated and able to demonstrate proper deep breathing methods for having a bowel mvmt to minimize an increase in core pressure. 03/03/24: Pt educated in proper core pressure mgmt for transfers. STG Duration 04/07/24 progressed 03/03/24 (need for BM's) Longterm Goal (LTG) Pt will be independent in a self care HEP for PF strengthening in all positions , and able to incorporate wgt training in her ex program without onset of bulge in perineum (to include Restore your core program). 03/03/24: HEP: Kegels (quick , long hold) & Deep breathing. LTG Duration 05/19/24 progressed 03/03/24 Assessment Summary Assessment Good understanding of ILU bowel massage and in positioning and using of deep breathing to help with BM. Was not able to sacral balance due to pt's body holding tension in all areas. Mobility ex's needed of LB, hips, pelvis to be more successful. Physical Therapy Plan Frequency and Duration Frequency of Treatment 1x/Week Duration of treatment (weeks) 12 Plan of Care Start Date 02/25/24 Plan of Care End Date 05/19/24 Next Visit Focus/Plan Next Note Type Treatment Note Next Visit Plan Next: Review core pressure mgmt and assess response to BMs after positional & breathing training, and response to sacral balancing. Next: Sacral balancing and completing with pubic setting. Coccygeal ms mob internally if appropriate. Teach coccygeal ms stretch with Miracle ball or swim noodle. PF strengthening on wedge & L hip/PF strengthening, Improve mobility: hip R>L IR, L>R ER PROM, & Neuro-nancy training of PF from substitute ms. Ther Ex: assess DR for abdominal strengthening. Manual - ?internal STM. POC: Pt education, Manual therapy. Biofeedback with vaginal or rectal sensor for PF >< awareness (?strength vs relax), Therapeutic Exercises, Therapeutic Activities, Neuromuscular Reeducation.
--- NOTE | 2024-04-03 08:42 | PT.OTN ---
Current Diagnoses Sacrococcygeal disorders, not elsewhere classified (04/03/24) Cystocele, unspecified (04/03/24) Unspecified dyspareunia (04/03/24) Flatulence (04/03/24) Fecal urgency (04/03/24) Physical Therapy Treatment Note PT-OP-A Visit Information Start: 01/29/24 13:09 Freq: Status: Active Protocol: Document 04/03/24 07:31 LRN (Rec: 04/03/24 08:16 LRN [id number]) Out-Patient Physical Therapy Visit Information Visit Information Visit Type Treatment Note Visit Start Time 07:31 Visit Stop Time 07:13 Visit Number 09/03 Evaluation Information Evaluation Date 02/25/24 Precautions Precautions IUD 2/7 yrs in. Seizures? Concussion age 9, thyroid disorder, 4G4P with much pain during 3rd , quick delivery and tearing of unknown degree. PT-OP-B Current Condition Start: 01/29/24 13:09 Freq: Status: Active Protocol: Document 02/25/24 07:32 LRN (Rec: 02/25/24 08:24 LRN [id number]) Current Condition History of Current Condition Onset Date 2014 Current Complaints Having a lot of tailbone pn, heaviness ant lwr abdomen, discomfort in sup. History of Current Condition Has been a runner all her life , moved to [place] and was training for a 10 mile race, then felt like she was sitting on a tennis ball. Stopped running and saw a PT [facility], but stopped after 2 months because she felt it wasn't helpful, other than what stopping running achieved . Pt is 4G4P and had significant tearing with the first childbirth, but normal and running for exercise until time of delivery w/o pain (oldest child is 18). 2nd she felt a moderate amount of discomfort in anterior pubic region. 3rd she had much pubic pain due to baby with large head and delivered fast was fast, < 3 hrs) resulting in post decreased sensation with intercourse. Pt calls needing stitches, but doesn't know the degree of tearing. 4th child was induced delivery and felt was normal, without pain. In August of 2023 she began running 1 mile/day for 20 days and had to stop because of new tailbone pain and heaviness with bulging in the perineum, but not the tennis ball feeling. When having intercourse feels like there is a tissue restricting insertion and is uncomfortable . She plans on discussing with her PCP about starting estrogen creme. She swam and walked with last 3 pregnancies. Currently, sometimes walking to the bathroom she has loss of small fecal matter at work and when out in public, mostly at home . C/o with intercourse she is not able to complete an orgasm, and it is not as intense since the of her 3rd child. Has been told she potentially she will need surgery to repair the PF or rectocele. Treatment Goals Patient/Caregiver Goals Pt goals: Decrease or eliminate tailbone pain (that started in 09/12 after trying running). Decrease heaviness in lower abdomen (2/10), minimal before starting running (1/10) [place] more comfortable Be able to incorporate wgt training in her ex program. ( Restore your core) Improve level of fecal continence. 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 PT-OP-C Subjective Start: 01/29/24 13:09 Freq: Status: Active Protocol: Document 04/03/24 07:31 LRN (Rec: 04/03/24 08:16 LRN [id number]) OP-PT Subjective Patient Comments Patient Comments Was sore after last treatment, and doesn't notice the lisa as much. Use of core pressure mgmt and knees higher than hips she was able to have BM, most of the time didn't have to push. No fecal leakage since last session. PT-OP-I Pelvic Floor Start: 01/29/24 13:09 Freq: Status: Active Protocol: Document 03/21/24 14:33 LRN (Rec: 03/21/24 15:48 LRN [id number]) Pelvic Floor Assessment Pelvic Clock Inter-Rectal Assessment Not able to relax pt enough to assess. External anal sphincter strength appears to be 3/5. Prolapse Cystocele Grade 3 Rectocele Grade 1 Prolapse Comments Bladder does not extend past hymen location Perineal Descent Resting Absent Bearing Present Contraction Ability Voluntary Contraction Moderate Voluntary Relaxation Weak Manual Muscle Testing Left 2 Manual Muscle Testing Right 3 Manual Muscle Testing Anterior 2 Manual Muscle Testing Posterior 3 Muscle Endurance (Seconds) 4 Number of Quick Contractions In 10 4 Seconds Comments Pelvic Floor Comments Anterior PF strength is 3/5 R, 2/5 L. Pt is slow to contract and slower to relax. PT-OP-J Posture/Palpation/Skin Start: 01/29/24 13:09 Freq: Status: Active Protocol: Document 02/25/24 07:32 LRN (Rec: 02/25/24 08:24 LRN [id number]) Posture Evaluation Position Standing Shoulder Posture (L) Elevated Scapula Posture (R) Retracted Pelvis Posture (L) PSIS Posterior,(L) ASIS Posterior Comments Posture Comments Dowagers hump, Sacrum L rotated, R PSIS is more lateral than L. In sitting: Pt sits with legs crossed, reportedly for comfort. PT-OP-K Range of Motion Start: 01/29/24 13:09 Freq: Status: Active Protocol: Document 02/25/24 07:32 LRN (Rec: 02/25/24 08:24 LRN [id number]) Lumbar Spine Range of Motion Lumbar Spine Active Degrees Testing Position Standing Flexion 110 Extension 30 Rotation Left 45 Rotation Right 40 Lateral Flexion Left 18 Lateral Flexion Right 18 Hip Goniometric Range of Motion Hip Right Passive Testing Position Supine Internal Rotation 25 External Rotation 75 Left Passive Testing Position Supine Internal Rotation 30 External Rotation 70 PT-OP-M Strength Start: 01/29/24 13:09 Freq: Status: Active Protocol: Document 02/25/24 07:32 LRN (Rec: 02/25/24 08:24 LRN [id number]) Hip Strength Hip Manual Muscle Testing Right Flexion (L2) 3+ Fair+ Internal Rotation 4+ Good+ Left Flexion (L2) 3+ Fair+ Extension (S1) 3 Fair Abduction 3+ Fair+ External Rotation 3+ Fair+ Internal Rotation 4+ Good+ PT-OP-Q Treatments Start: 01/29/24 13:09 Freq: Status: Active Protocol: Document 04/03/24 07:31 LRN (Rec: 04/03/24 08:16 LRN [id number]) Therapeutic Exercises Supine Exercises IT Band/Piriformis stretch Side bilateral Reps/Minutes 4' Lateral Hip stretch Side bilateral Reps/Minutes 4' Hip ER stretch Supine Exercise Name (L>R) Side left Reps/Minutes 3' Hip IR stretch Supine Exercise Name (R>L) R ankle over opp knee>L KTC Side right Reps/Minutes 4' Happy Baby stretch Reps/Minutes 2' Manual Therapy Treatment Consent Patient gave verbal consent for manual Yes treatment Soft Tissue Mobilization SIJ Body Location Sacral balancing Mobilization Type Sustained Pressure Intensity/Depth Moderate Body Position Prone Comments Prone: Correcting decreased mobility of: L sacral rot (PA of L lat sacrum) L ALA infer mob Sacral sheer to R, L YAYA PA mob, Ischial Tub PA mob, Ischial-Ilial rebalancing & Ischiums-Iliums balancin pt balancing. Pubic ramus partial complete balancingl Self-Care/Home Management Treatment Activities Self-Care/Home Management Activities Issued & reviewed HEP: Fig 4, Piriformis, & Lateral Hip stretch. PT-OP-T Assessment and Plan Start: 01/29/24 13:09 Freq: Status: Active Protocol: Document 04/03/24 07:31 LRN (Rec: 04/03/24 08:16 LRN [id number]) Physical Therapy Assessment Goals Five Impairment Fecal incontinence Short Term Goal (STG) Improve posterior PF strength with pt able to control passing of gas in public. STG Duration 04/07/24 Penitentiary Goal (LTG) Improve posterior PF strength with pt able to walk to the bathroom wthout loss of small fecal matter at work and when out in public. LTG Duration 05/19/24 Four Impairment Dyspareunia and inability to complete orgasm. Short Term Goal (STG) Decrease discomfort with intercourse. STG Duration 04/07/24 Penitentiary Goal (LTG) Pt will be able to achieve orgasm with use of pre- intercourse activities and mindfulness activities. LTG Duration 05/19/24 Three Impairment Heaviness pain in lower abdomen (2/10) Short Term Goal (STG) Decrease constant feeling of heaviness in the lower abdoment to intermittent. STG Duration 04/07/24 Penitentiary Goal (LTG) Eliminate heaviness in the lower abdomen by pt able to demonstrate wgt lifting exercise with proper breathing mechanics. LTG Duration 05/19/24 Two Impairment Constant tailbone pain worse in sitting & supine Short Term Goal (STG) Eliminate tailbone pain with pt able to tolerate some supine lying for sleeping. STG Duration 04/07/24 Assignment Manager Goal (LTG) Decrease or tailbone pain with pt able to comfortably sit for car rides. LTG Duration 05/19/24 One Impairment Lacks appropriate self care HEP. Short Term Goal (STG) Pt will be educated and able to demonstrate proper deep breathing methods for having a bowel mvmt to minimize an increase in core pressure. 03/03/24: Pt educated in proper core pressure mgmt for transfers. 04/03/24: Pt reporting ability to have BM w/o valsalva pushing. STG Duration 04/07/24 (04/03/24: MET GOAL ) Assignment Manager Goal (LTG) Pt will be independent in a self care HEP for PF strengthening in all positions , and able to incorporate wgt training in her ex program without onset of bulge in perineum (to include Restore your core program). 03/03/24: HEP: Kegels (quick , long hold) & Deep breathing. 04/03/24: HEP: Fig 4, Piriformis, & Lateral Hip stretch. LTG Duration 05/19/24 progressed 04/03/23 Assessment Summary Assessment 48 yo female w/tailbone pain ( sit/sup), ?R coccygeal muscles tightness, & probable perineal muscle dysfunction based on history, lower abdominal heaviness, dyspareunia (?insertion being blocked), difficulty achieving full orgasm, mildly dec'd hip mobility and sterngth, decr'd ability to return to exercise (wgt lifting). Today she notes the small fecal incontinence trying to get to bathroom intially was not noticed since last session & she is pushing less with BM's using breath/core pressure mgmt & positioning. Good tolerance to stretches, although restriction is mild. R infer pubic bone tension on R is less present, as is R Ischial tub w/PA mob, & R innominate with 6 pt balancing . Physical Therapy Plan Frequency and Duration Frequency of Treatment 1x/Week Duration of treatment (weeks) 12 Plan of Care Start Date 02/25/24 Plan of Care End Date 05/19/24 Next Visit Focus/Plan Next Note Type Treatment Note Next Visit Plan Next: Assess response to sacral balancing, and repeat as needed. Review if needed hip stretches. Coccygeal ms mob internally if appropriate. Teach coccygeal ms stretch with Miracle ball or swim noodle. Manually stretch coccygeal ms (vaginally). PF strengthening on wedge & L hip/unemployment specialist PF strengthening ( avoid over tightening of more external coccygeal/gluteal ms) , Neuro-nancy training of PF from substitute ms. Ther Ex: assess DR for abdominal strengthening. Manual - ?internal STM. POC: Pt education, Manual therapy. Biofeedback with vaginal or rectal sensor for PF >< awareness (?strength vs relax), Therapeutic Exercises, Therapeutic Activities, Neuromuscular Reeducation.
--- NOTE | 2024-04-13 08:52 | PT.OTN ---
Current Diagnoses Sacrococcygeal disorders, not elsewhere classified (04/13/24) Cystocele, unspecified (04/13/24) Unspecified dyspareunia (04/13/24) Flatulence (04/13/24) Fecal urgency (04/13/24) Physical Therapy Treatment Note PT-OP-A Visit Information Start: 01/29/24 13:09 Freq: Status: Active Protocol: Document 04/13/24 07:33 LRN (Rec: 04/13/24 08:19 LRN [id number]) Out-Patient Physical Therapy Visit Information Visit Information Visit Type Treatment Note Visit Start Time 07:34 Visit Stop Time 08:13 Visit Number 10/03 Evaluation Information Evaluation Date 02/25/24 Precautions Precautions IUD 2/7 yrs in. Seizures? Concussion age 9, thyroid disorder, 4G4P with much pain during 3rd , quick delivery and tearing of unknown degree. PT-OP-B Current Condition Start: 01/29/24 13:09 Freq: Status: Active Protocol: Document 02/25/24 07:32 LRN (Rec: 02/25/24 08:24 LRN [id number]) Current Condition History of Current Condition Onset Date 2014 Current Complaints Having a lot of tailbone pn, heaviness ant lwr abdomen, discomfort in sup. History of Current Condition Has been a runner all her life , moved to [place] and was training for a 10 mile race, then felt like she was sitting on a tennis ball. Stopped running and saw a PT at [facility], but stopped after 2 months because she felt it wasn't helpful, other than what stopping running achieved . Pt is 4G4P and had significant tearing with the first childbirth, but normal and running for exercise until time of delivery w/o pain (oldest child is 18). 2nd she felt a moderate amount of discomfort in anterior pubic region. 3rd she had much pubic pain due to baby with large head and delivered fast was fast, < 3 hrs) resulting in post decreased sensation with intercourse. Pt calls needing stitches, but doesn't know the degree of tearing. 4th child was induced delivery and felt was normal, without pain. In August of 2023 she began running 1 mile/day for 20 days and had to stop because of new tailbone pain and heaviness with bulging in the perineum, but not the tennis ball feeling. When having intercourse feels like there is a tissue restricting insertion and is uncomfortable . She plans on discussing with her PCP about starting estrogen creme. She swam and walked with last 3 pregnancies. Currently, sometimes walking to the bathroom she has loss of small fecal matter at work and when out in public, mostly at home . C/o with intercourse she is not able to complete an orgasm, and it is not as intense since the of her 3rd child. Has been told she potentially she will need surgery to repair the PF or rectocele. Treatment Goals Patient/Caregiver Goals Pt goals: Decrease or eliminate tailbone pain (that started in 09/12 after trying running). Decrease heaviness in lower abdomen (2/10), minimal before starting running (1/10) [place] more comfortable Be able to incorporate wgt training in her ex program. ( Restore your core) Improve level of fecal continence. 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 PT-OP-C Subjective Start: 01/29/24 13:09 Freq: Status: Active Protocol: Document 04/13/24 07:33 LRN (Rec: 04/13/24 08:19 LRN [id number]) OP-PT Subjective Patient Comments Patient Comments Reports soreness (3/10) in LB and down lateral thighs, which is her norm. I like deep tissue massage. PT-OP-I Pelvic Floor Start: 01/29/24 13:09 Freq: Status: Active Protocol: Document 03/21/24 14:33 LRN (Rec: 03/21/24 15:48 LRN [id number]) Pelvic Floor Assessment Pelvic Clock Inter-Rectal Assessment Not able to relax pt enough to assess. External anal sphincter strength appears to be 3/5. Prolapse Cystocele Grade 3 Rectocele Grade 1 Prolapse Comments Bladder does not extend past hymen location Perineal Descent Resting Absent Bearing Present Contraction Ability Voluntary Contraction Moderate Voluntary Relaxation Weak Manual Muscle Testing Left 2 Manual Muscle Testing Right 3 Manual Muscle Testing Anterior 2 Manual Muscle Testing Posterior 3 Muscle Endurance (Seconds) 4 Number of Quick Contractions In 10 4 Seconds Comments Pelvic Floor Comments Anterior PF strength is 3/5 R, 2/5 L. Pt is slow to contract and slower to relax. PT-OP-J Posture/Palpation/Skin Start: 01/29/24 13:09 Freq: Status: Active Protocol: Document 02/25/24 07:32 LRN (Rec: 02/25/24 08:24 LRN [id number]) Posture Evaluation Position Standing Shoulder Posture (L) Elevated Scapula Posture (R) Retracted Pelvis Posture (L) PSIS Posterior,(L) ASIS Posterior Comments Posture Comments Dowagers hump, Sacrum L rotated, R PSIS is more lateral than L. In sitting: Pt sits with legs crossed, reportedly for comfort. PT-OP-K Range of Motion Start: 01/29/24 13:09 Freq: Status: Active Protocol: Document 02/25/24 07:32 LRN (Rec: 02/25/24 08:24 LRN [id number]) Lumbar Spine Range of Motion Lumbar Spine Active Degrees Testing Position Standing Flexion 110 Extension 30 Rotation Left 45 Rotation Right 40 Lateral Flexion Left 18 Lateral Flexion Right 18 Hip Goniometric Range of Motion Hip Right Passive Testing Position Supine Internal Rotation 25 External Rotation 75 Left Passive Testing Position Supine Internal Rotation 30 External Rotation 70 PT-OP-M Strength Start: 01/29/24 13:09 Freq: Status: Active Protocol: Document 02/25/24 07:32 LRN (Rec: 02/25/24 08:24 LRN [id number]) Hip Strength Hip Manual Muscle Testing Right Flexion (L2) 3+ Fair+ Internal Rotation 4+ Good+ Left Flexion (L2) 3+ Fair+ Extension (S1) 3 Fair Abduction 3+ Fair+ External Rotation 3+ Fair+ Internal Rotation 4+ Good+ PT-OP-Q Treatments Start: 01/29/24 13:09 Freq: Status: Active Protocol: Document 04/13/24 07:33 LRN (Rec: 04/13/24 08:19 LRN [id number]) Manual Therapy Treatment Consent Patient gave verbal consent for manual Yes treatment Soft Tissue Mobilization IT Band Body Location Alan IT Band Mobilization Type Instrument Assisted Intensity/Depth Moderate Body Position Supine Comments Instructed pt to do at home with her massage stick. SIJ Body Location Sacral balancing Mobilization Type Sustained Pressure Intensity/Depth Moderate Body Position Prone Comments Prone: Correcting decreased mobility of: Sacral sheer to L, L Sacral sulcus infer & PA mob , R Sacral shear L sacral rot (PA of L lat sacrum) L Ischial Tub PA mob, Ischial-Ilial rebalancing & Ischiums-Iliums balancin pt balancing. L Coccygeal ms relaxation Supine: Pubic ramus balancing PT-OP-T Assessment and Plan Start: 01/29/24 13:09 Freq: Status: Active Protocol: Document 04/13/24 07:33 LRN (Rec: 04/13/24 08:19 LRN [id number]) Physical Therapy Assessment Goals Five Impairment Fecal incontinence Short Term Goal (STG) Improve posterior PF strength with pt able to control passing of gas in public. STG Duration 04/07/24 Magneto Repairer Goal (LTG) Improve posterior PF strength with pt able to walk to the bathroom wthout loss of small fecal matter at work and when out in public. LTG Duration 05/19/24 Four Impairment Dyspareunia and inability to complete orgasm. Short Term Goal (STG) Decrease discomfort with intercourse. STG Duration 04/07/24 Magneto Repairer Goal (LTG) Pt will be able to achieve orgasm with use of pre- intercourse activities and mindfulness activities. LTG Duration 05/19/24 Three Impairment Heaviness pain in lower abdomen (2/10) Short Term Goal (STG) Decrease constant feeling of heaviness in the lower abdoment to intermittent. STG Duration 04/07/24 Fpc Goal (LTG) Eliminate heaviness in the lower abdomen by pt able to demonstrate wgt lifting exercise with proper breathing mechanics. LTG Duration 05/19/24 Two Impairment Constant tailbone pain worse in sitting & supine Short Term Goal (STG) Eliminate tailbone pain with pt able to tolerate some supine lying for sleeping. STG Duration 04/07/24 Fpc Goal (LTG) Decrease or tailbone pain with pt able to comfortably sit for car rides. LTG Duration 05/19/24 One Impairment Lacks appropriate self care HEP. Short Term Goal (STG) Pt will be educated and able to demonstrate proper deep breathing methods for having a bowel mvmt to minimize an increase in core pressure. 03/03/24: Pt educated in proper core pressure mgmt for transfers. 04/03/24: Pt reporting ability to have BM w/o valsalva pushing. STG Duration 04/07/24 (04/03/24: MET GOAL ) Fpc Goal (LTG) Pt will be independent in a self care HEP for PF strengthening in all positions , and able to incorporate wgt training in her ex program without onset of bulge in perineum (to include Restore your core program). 03/03/24: HEP: Kegels (quick , long hold) & Deep breathing. 04/03/24: HEP: Fig 4, Piriformis, & Lateral Hip stretch. LTG Duration 05/19/24 progressed 04/03/23 Assessment Summary Assessment + response to STM: Correction for L rotated sacrum, release of L coccygeal ms at coccyx and improved posturing of sacrum after STM. Pt has tension at IT Band and pt soreness probably from pubococcygeal ms tightness. Physical Therapy Plan Frequency and Duration Frequency of Treatment 1x/Week Duration of treatment (weeks) 12 Plan of Care Start Date 02/25/24 Plan of Care End Date 05/19/24 Next Visit Focus/Plan Next Note Type Treatment Note Next Visit Plan Next: Assess response to sacral balancing & coccyx ms release (coccyx pain sup & sitting). Review if needed hip stretches. Assess DR for abdominal strengthening. Manual STM to abdomen and externally area of anterior PF. If needed, coccygeal ms mob internally. If needed, teach coccygeal ms stretch with Miracle ball or swim noodle. PF strengthening on wedge & L hip/inspector and unloader PF strengthening ( avoid over tightening of more external coccygeal/gluteal ms) . Neuro-nancy training of PF from substitute ms. ?EStim PF for ms relaxation. POC: Pt education, Manual therapy. Biofeedback with vaginal or rectal sensor for PF >< awareness (?strength vs relax), Therapeutic Exercises, Therapeutic Activities, Neuromuscular Reeducation.
--- NOTE | 2024-04-20 18:26 | PT.OTN ---
Current Diagnoses Sacrococcygeal disorders, not elsewhere classified (04/20/24) Cystocele, unspecified (04/20/24) Unspecified dyspareunia (04/20/24) Flatulence (04/20/24) Fecal urgency (04/20/24) Physical Therapy Treatment Note PT-OP-A Visit Information Start: 01/29/24 13:09 Freq: Status: Active Protocol: Document 04/20/24 07:32 LRN (Rec: 04/20/24 08:17 LRN [id number]) Out-Patient Physical Therapy Visit Information Visit Information Visit Type Treatment Note Visit Start Time 07:33 Visit Stop Time 08:13 Visit Number 11/03 Evaluation Information Evaluation Date 02/25/24 Precautions Precautions IUD 2/7 yrs in. Seizures? Concussion age 9, thyroid disorder, 4G4P with much pain during 3rd , quick delivery and tearing of unknown degree. PT-OP-B Current Condition Start: 01/29/24 13:09 Freq: Status: Active Protocol: Document 02/25/24 07:32 LRN (Rec: 02/25/24 08:24 LRN [id number]) Current Condition History of Current Condition Onset Date 2014 Current Complaints Having a lot of tailbone pn, heaviness ant lwr abdomen, discomfort in sup. History of Current Condition Has been a runner all her life , moved to [place] and was training for a 10 mile race, then felt like she was sitting on a tennis ball. Stopped running and saw a PT [facility], but stopped after 2 months because she felt it wasn't helpful, other than what stopping running achieved . Pt is 4G4P and had significant tearing with the first childbirth, but normal and running for exercise until time of delivery w/o pain (oldest child is 18). 2nd she felt a moderate amount of discomfort in anterior pubic region. 3rd she had much pubic pain due to baby with large head and delivered fast was fast, < 3 hrs) resulting in post decreased sensation with intercourse. Pt calls needing stitches, but doesn't know the degree of tearing. 4th child was induced delivery and felt was normal, without pain. In August of 2023 she began running 1 mile/day for 20 days and had to stop because of new tailbone pain and heaviness with bulging in the perineum, but not the tennis ball feeling. When having intercourse feels like there is a tissue restricting insertion and is uncomfortable . She plans on discussing with her PCP about starting estrogen creme. She swam and walked with last 3 pregnancies. Currently, sometimes walking to the bathroom she has loss of small fecal matter at work and when out in public, mostly at home . C/o with intercourse she is not able to complete an orgasm, and it is not as intense since the of her 3rd child. Has been told she potentially she will need surgery to repair the PF or rectocele. Treatment Goals Patient/Caregiver Goals Pt goals: Decrease or eliminate tailbone pain (that started in 09/12 after trying running). Decrease heaviness in lower abdomen (2/10), minimal before starting running (1/10) [place] more comfortable Be able to incorporate wgt training in her ex program. ( Restore your core) Improve level of fecal continence. 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 PT-OP-C Subjective Start: 01/29/24 13:09 Freq: Status: Active Protocol: Document 04/20/24 07:32 LRN (Rec: 04/20/24 08:17 LRN [id number]) OP-PT Subjective Patient Comments Patient Comments Times without pain. Noticing how tight ms & jts feel all over. Patient Reported Progress Same PT-OP-I Pelvic Floor Start: 01/29/24 13:09 Freq: Status: Active Protocol: Document 03/21/24 14:33 LRN (Rec: 03/21/24 15:48 LRN [id number]) Pelvic Floor Assessment Pelvic Clock Inter-Rectal Assessment Not able to relax pt enough to assess. External anal sphincter strength appears to be 3/5. Prolapse Cystocele Grade 3 Rectocele Grade 1 Prolapse Comments Bladder does not extend past hymen location Perineal Descent Resting Absent Bearing Present Contraction Ability Voluntary Contraction Moderate Voluntary Relaxation Weak Manual Muscle Testing Left 2 Manual Muscle Testing Right 3 Manual Muscle Testing Anterior 2 Manual Muscle Testing Posterior 3 Muscle Endurance (Seconds) 4 Number of Quick Contractions In 10 4 Seconds Comments Pelvic Floor Comments Anterior PF strength is 3/5 R, 2/5 L. Pt is slow to contract and slower to relax. PT-OP-J Posture/Palpation/Skin Start: 01/29/24 13:09 Freq: Status: Active Protocol: Document 02/25/24 07:32 LRN (Rec: 02/25/24 08:24 LRN [id number]) Posture Evaluation Position Standing Shoulder Posture (L) Elevated Scapula Posture (R) Retracted Pelvis Posture (L) PSIS Posterior,(L) ASIS Posterior Comments Posture Comments Dowagers hump, Sacrum L rotated, R PSIS is more lateral than L. In sitting: Pt sits with legs crossed, reportedly for comfort. PT-OP-K Range of Motion Start: 01/29/24 13:09 Freq: Status: Active Protocol: Document 04/20/24 07:32 LRN (Rec: 04/20/24 08:17 LRN [id number]) Hip Goniometric Range of Motion Hip Right Passive Testing Position Supine Internal Rotation 45 External Rotation 70 Left Passive Testing Position Supine Internal Rotation 45 External Rotation 50 PT-OP-M Strength Start: 01/29/24 13:09 Freq: Status: Active Protocol: Document 02/25/24 07:32 LRN (Rec: 02/25/24 08:24 LRN [id number]) Hip Strength Hip Manual Muscle Testing Right Flexion (L2) 3+ Fair+ Internal Rotation 4+ Good+ Left Flexion (L2) 3+ Fair+ Extension (S1) 3 Fair Abduction 3+ Fair+ External Rotation 3+ Fair+ Internal Rotation 4+ Good+ PT-OP-Q Treatments Start: 01/29/24 13:09 Freq: Status: Active Protocol: Document 04/20/24 07:32 LRN (Rec: 04/20/24 08:17 LRN [id number]) Therapeutic Exercises Supine Exercises Hip ER stretch Supine Exercise Name L >R Side bilateral Reps/Minutes 4' Hip IR stretch Supine Exercise Name ankle over knee>KTC Side bilateral Reps/Minutes 4' Kegels, quick/long Supine Exercise Name Kegels quick and long hold in isolation of abdominals Reps/Minutes 4' Comments self assessment, visual, physical Other Exercises [place] stretch Other Exercise Name Leaning with trunk into R rot to even body position for L hip ER stretch Side bilateral Reps/Minutes 4' Neuro Re-Education Treatment Other Activities Standing: Kegels in isolation Details Standing with Kegels in isol of abdoms quick, long hold & elbow curls. Reps/Duration 24' Comments (see assessment) Self-Care/Home Management Treatment Activities Self-Care/Home Management Activities Pt to monitor reasons for increased gas, if food related . PT-OP-T Assessment and Plan Start: 01/29/24 13:09 Freq: Status: Active Protocol: Document 04/20/24 07:32 LRN (Rec: 04/20/24 08:17 LRN [id number]) Physical Therapy Assessment Goals Five Impairment Fecal incontinence Short Term Goal (STG) Improve posterior PF strength with pt able to control passing of gas in public. 04/20/24: A little better controlling gas. 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 LTG Duration 05/19/24 Four Impairment Dyspareunia and inability to complete orgasm. Short Term Goal (STG) Decrease discomfort with intercourse. 04/20/24: Discomfort with dryness. Extra use of lub make it more comfortable. STG Duration 04/07/24 (04/20/24: MET GOAL ) Cut And Cover Line Worker Goal (LTG) Pt will be able to achieve orgasm with use of pre- intercourse activities and mindfulness activities. LTG Duration 05/19/24 Three Impairment Heaviness pain in lower abdomen (2/10) Short Term Goal (STG) Decrease constant feeling of heaviness in the lower abdoment to intermittent. 04/20/24: No discomfort because not running or exercising. Has it by the end of the day (still walking). STG Duration 04/07/24 progress w/o running 04/20/24(need no heaviness end of day & run) Cut And Cover Line Worker Goal (LTG) Eliminate heaviness in the lower abdomen by pt able to demonstrate wgt lifting exercise with proper breathing mechanics. 04/20/24: Pt demonstrates ability to lift 2# wgt with improved breath mechanics ( changed to exhale with lift f/ b inhale). LTG Duration 05/19/24 progressed 04/20/24 (need eliminate heaviness w/ lifting) Two Impairment Constant tailbone pain worse in sitting & supine Short Term Goal (STG) Eliminate tailbone pain with pt able to tolerate some supine lying for sleeping. 04/20/24: Able to lie on back to sleep. STG Duration 04/07/24 improved 04/20/24 ( need pain eliminated) Alf Goal (LTG) Decrease or tailbone pain with pt able to comfortably sit for car rides. LTG Duration 05/19/24 One Impairment Lacks appropriate self care HEP. Short Term Goal (STG) Pt will be educated and able to demonstrate proper deep breathing methods for having a bowel mvmt to minimize an increase in core pressure. 03/03/24: Pt educated in proper core pressure mgmt for transfers. 04/03/24: Pt reporting ability to have BM w/o valsalva pushing. STG Duration 04/07/24 (04/03/24: MET GOAL ) Cut And Cover Line Worker Goal (LTG) Pt will be independent in a self care HEP for PF strengthening in all positions , and able to incorporate wgt training in her ex program without onset of bulge in perineum (to include Restore your core program). 03/03/24: HEP: Kegels (quick , long hold) & Deep breathing. 04/03/24: HEP: Fig 4, Piriformis, & Lateral Hip stretch. LTG Duration 05/19/24 progressed 04/03/23 Assessment Summary Assessment 48 yo female w/tailbone pain ( sit/sup), ?R coccygeal muscles tightness, & probable perineal muscle dysfunction based on history, lower abdominal heaviness, dyspareunia (?insertion being blocked), difficulty achieving full orgasm, mildly dec'd hip mobility and sterngth, decr'd ability to return to exercise (wgt lifting). Today, pt is reporting periods of no pain; therefore + response to sacral balancing. Standing, PF strength is greater than abdominal tone w/UE ex using 2 # for quick Kegels, but not consistently with long hold Kegel (loss of PF strength ~6- 8 secs holding. Supine she is able to isolate her PF from quick and long hold contractions. Intercouse is more comfortable with use of extra lub; pt is seeking treatment for dry vaginal canal. Physical Therapy Plan Frequency and Duration Frequency of Treatment 1x/Week Duration of treatment (weeks) 12 Plan of Care Start Date 02/25/24 Plan of Care End Date 05/19/24 Next Visit Focus/Plan Next Note Type Treatment Note Next Visit Plan Next: Assess response to sacral balancing & coccyx ms release (coccyx pain sup & sitting). Review if needed hip stretches. Assess DR for abdominal strengthening. Manual STM to abdomen and externally area of anterior PF. If needed, coccygeal ms mob internally. If needed, teach coccygeal ms stretch with Miracle ball or swim noodle. PF strengthening on wedge & L hip/radiology tech PF strengthening ( avoid over tightening of more external coccygeal/gluteal ms) . Neuro-nancy training of PF from substitute ms. ?EStim PF for ms relaxation. POC: Pt education, Manual therapy. Biofeedback with vaginal or rectal sensor for PF >< awareness (?strength vs relax), Therapeutic Exercises, Therapeutic Activities, Neuromuscular Reeducation.
--- NOTE | 2024-04-25 17:07 | PT.OTN ---
Current Diagnoses Sacrococcygeal disorders, not elsewhere classified (04/25/24) Cystocele, unspecified (04/25/24) Unspecified dyspareunia (04/25/24) Flatulence (04/25/24) Fecal urgency (04/25/24) Physical Therapy Treatment Note PT-OP-A Visit Information Start: 01/29/24 13:09 Freq: Status: Active Protocol: Document 04/25/24 07:31 LRN (Rec: 04/25/24 08:16 LRN [id number]) Out-Patient Physical Therapy Visit Information Visit Information Visit Type Treatment Note Visit Start Time 07:31 Visit Stop Time 08:12 Visit Number 12/04 Evaluation Information Evaluation Date 02/25/24 Precautions Precautions IUD 2/7 yrs in. Seizures? Concussion age 9, thyroid disorder, 4G4P with much pain during 3rd , quick delivery and tearing of unknown degree. PT-OP-B Current Condition Start: 01/29/24 13:09 Freq: Status: Active Protocol: Document 02/25/24 07:32 LRN (Rec: 02/25/24 08:24 LRN [id number]) Current Condition History of Current Condition Onset Date 2014 Current Complaints Having a lot of tailbone pn, heaviness ant lwr abdomen, discomfort in sup. History of Current Condition Has been a runner all her life , moved to [place] and was training for a 10 mile race, then felt like she was sitting on a tennis ball. Stopped running and saw a PT at [facility], but stopped after 2 months because she felt it wasn't helpful, other than what stopping running achieved . Pt is 4G4P and had significant tearing with the first childbirth, but normal and running for exercise until time of delivery w/o pain (oldest child is 18). 2nd she felt a moderate amount of discomfort in anterior pubic region. 3rd she had much pubic pain due to baby with large head and delivered fast was fast, < 3 hrs) resulting in post decreased sensation with intercourse. Pt calls needing stitches, but doesn't know the degree of tearing. 4th child was induced delivery and felt was normal, without pain. In August of 2023 she began running 1 mile/day for 20 days and had to stop because of new tailbone pain and heaviness with bulging in the perineum, but not the tennis ball feeling. When having intercourse feels like there is a tissue restricting insertion and is uncomfortable . She plans on discussing with her PCP about starting estrogen creme. She swam and walked with last 3 pregnancies. Currently, sometimes walking to the bathroom she has loss of small fecal matter at work and when out in public, mostly at home . C/o with intercourse she is not able to complete an orgasm, and it is not as intense since the of her 3rd child. Has been told she potentially she will need surgery to repair the PF or rectocele. Treatment Goals Patient/Caregiver Goals Pt goals: Decrease or eliminate tailbone pain (that started in 09/12 after trying running). Decrease heaviness in lower abdomen (2/10), minimal before starting running (1/10) [place] more comfortable Be able to incorporate wgt training in her ex program. ( Restore your core) Improve level of fecal continence. 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 PT-OP-C Subjective Start: 01/29/24 13:09 Freq: Status: Active Protocol: Document 04/25/24 07:31 LRN (Rec: 04/25/24 08:16 LRN [id number]) OP-PT Subjective Patient Comments Patient Comments States she is better, but not doing her running. Has walked , when weather is better will play pickle ball and go on longer walks. Did home wgts of 2#. Would like to have the manual treatment to the back again as she is feeling pain with sitting. PT-OP-I Pelvic Floor Start: 01/29/24 13:09 Freq: Status: Active Protocol: Document 03/21/24 14:33 LRN (Rec: 03/21/24 15:48 LRN [id number]) Pelvic Floor Assessment Pelvic Clock Inter-Rectal Assessment Not able to relax pt enough to assess. External anal sphincter strength appears to be 3/5. Prolapse Cystocele Grade 3 Rectocele Grade 1 Prolapse Comments Bladder does not extend past hymen location Perineal Descent Resting Absent Bearing Present Contraction Ability Voluntary Contraction Moderate Voluntary Relaxation Weak Manual Muscle Testing Left 2 Manual Muscle Testing Right 3 Manual Muscle Testing Anterior 2 Manual Muscle Testing Posterior 3 Muscle Endurance (Seconds) 4 Number of Quick Contractions In 10 4 Seconds Comments Pelvic Floor Comments Anterior PF strength is 3/5 R, 2/5 L. Pt is slow to contract and slower to relax. PT-OP-J Posture/Palpation/Skin Start: 01/29/24 13:09 Freq: Status: Active Protocol: Document 02/25/24 07:32 LRN (Rec: 02/25/24 08:24 LRN [id number]) Posture Evaluation Position Standing Shoulder Posture (L) Elevated Scapula Posture (R) Retracted Pelvis Posture (L) PSIS Posterior,(L) ASIS Posterior Comments Posture Comments Dowagers hump, Sacrum L rotated, R PSIS is more lateral than L. In sitting: Pt sits with legs crossed, reportedly for comfort. PT-OP-K Range of Motion Start: 01/29/24 13:09 Freq: Status: Active Protocol: Document 04/20/24 07:32 LRN (Rec: 04/20/24 08:17 LRN [id number]) Hip Goniometric Range of Motion Hip Right Passive Testing Position Supine Internal Rotation 45 External Rotation 70 Left Passive Testing Position Supine Internal Rotation 45 External Rotation 50 PT-OP-M Strength Start: 01/29/24 13:09 Freq: Status: Active Protocol: Document 02/25/24 07:32 LRN (Rec: 02/25/24 08:24 LRN [id number]) Hip Strength Hip Manual Muscle Testing Right Flexion (L2) 3+ Fair+ Internal Rotation 4+ Good+ Left Flexion (L2) 3+ Fair+ Extension (S1) 3 Fair Abduction 3+ Fair+ External Rotation 3+ Fair+ Internal Rotation 4+ Good+ PT-OP-Q Treatments Start: 01/29/24 13:09 Freq: Status: Active Protocol: Document 04/25/24 07:31 LRN (Rec: 04/25/24 08:16 LRN [id number]) Manual Therapy Treatment Soft Tissue Mobilization SIJ Body Location Sacral balancing Mobilization Type Sustained Pressure Intensity/Depth Moderate Body Position Prone Comments Prone: Correcting decreased mobility of: Sacral sheer to L, L Sacral sulcus infer & PA mob , L sacral rot (PA of L lat sacrum) L Ischial Tub PA mob, Ischial-Ilial rebalancing & Ischiums-Iliums balancin pt balancing. L Coccygeal ms relaxation Supine: Pubic ramus balancing Self-Care/Home Management Treatment Education Other Education At pt request she wanted to know why she shouldn't cross her legs sitting and sleep with her leg draped over one side. Pt education in pelvic/ hip/lower lumbar anatomy/ mechanics with use of pelvic model as a response to improper sitting/sleeping. PT-OP-T Assessment and Plan Start: 01/29/24 13:09 Freq: Status: Active Protocol: Document 04/25/24 07:31 LRN (Rec: 04/25/24 08:16 LRN [id number]) Physical Therapy Assessment Goals Five Impairment Fecal incontinence Short Term Goal (STG) Improve posterior PF strength with pt able to control passing of gas in public. 04/20/24: A little better controlling gas. 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 LTG Duration 05/19/24 Four Impairment Dyspareunia and inability to complete orgasm. Short Term Goal (STG) Decrease discomfort with intercourse. 04/20/24: Discomfort with dryness. Extra use of lub make it more comfortable. STG Duration 04/07/24 (04/20/24: MET GOAL ) Electronics Mechanic Apprentice Goal (LTG) Pt will be able to achieve orgasm with use of pre- intercourse activities and mindfulness activities. LTG Duration 05/19/24 Three Impairment Heaviness pain in lower abdomen (2/10) Short Term Goal (STG) Decrease constant feeling of heaviness in the lower abdoment to intermittent. 04/20/24: No discomfort because not running or exercising. Has it by the end of the day (still walking). STG Duration 04/07/24 progress w/o running 04/20/24(need no heaviness end of day & run) Electronics Mechanic Apprentice Goal (LTG) Eliminate heaviness in the lower abdomen by pt able to demonstrate wgt lifting exercise with proper breathing mechanics. 04/20/24: Pt demonstrates ability to lift 2# wgt with improved breath mechanics ( changed to exhale with lift f/ b inhale). LTG Duration 05/19/24 progressed 04/20/24 (need eliminate heaviness w/ lifting) Two Impairment Constant tailbone pain worse in sitting & supine Short Term Goal (STG) Eliminate tailbone pain with pt able to tolerate some supine lying for sleeping. 04/20/24: Able to lie on back to sleep. STG Duration 04/07/24 improved 04/20/24 ( need pain eliminated) Electronics Mechanic Apprentice Goal (LTG) Decrease or tailbone pain with pt able to comfortably sit for car rides. LTG Duration 05/19/24 One Impairment Lacks appropriate self care HEP. Short Term Goal (STG) Pt will be educated and able to demonstrate proper deep breathing methods for having a bowel mvmt to minimize an increase in core pressure. 03/03/24: Pt educated in proper core pressure mgmt for transfers. 04/03/24: Pt reporting ability to have BM w/o valsalva pushing. STG Duration 04/07/24 (04/03/24: MET GOAL ) Electronics Mechanic Apprentice Goal (LTG) Pt will be independent in a self care HEP for PF strengthening in all positions , and able to incorporate wgt training in her ex program without onset of bulge in perineum (to include Restore your core program). 03/03/24: HEP: Kegels (quick , long hold) & Deep breathing. 04/03/24: HEP: Fig 4, Piriformis, & Lateral Hip stretch. LTG Duration 05/19/24 progressed 04/03/23 Assessment Summary Assessment Response was good to sacral balancing. Coccyx ms on L side remained tight. Pt now has a better understanding of posturing after education. Pt appeared to possibly being overwhelmed with having to comply to all areas of therapy (posture, eating, breathing, ex, transfers, etc). Possibly not able to stabilize pelvis due to poor positiong at nighttime and sitting, which the pt commits today to try and be more aware. Pt understands stretching of coccygeal ms with use of ball, will need to try noodle stretching. Physical Therapy Plan Frequency and Duration Frequency of Treatment 1x/Week Duration of treatment (weeks) 12 Plan of Care Start Date 02/25/24 Plan of Care End Date 05/19/24 Next Visit Focus/Plan Next Note Type Treatment Note Next Visit Plan Next: Every other week after next treatment with pt working at home on posture, positioning, exercise due to limited PT visits. Assess response to sacral balancing & coccyx ms release (coccyx pain sup & sitting). Assess for L/S trunk shift (?L) and check for if umbilicus is shfited L compared to xyphoid process. Assess for bladder prolapse and pain with intercourse (tissue restricting insertion) and need for strengthening on wedge. Assess DR for abdominal strengthening. Manual STM to abdomen and externally area of anterior PF. If needed, coccygeal ms mob internally. Teach coccygeal ms stretch with swim noodle. Review if needed hip stretches. PF strengthening on wedge & L hip/line worker PF strengthening ( avoid over tightening of more external coccygeal/gluteal ms) . Neuro-nancy training of PF from substitute ms. ?EStim PF for ms relaxation. POC: Pt education, Manual therapy. Biofeedback with vaginal or rectal sensor for PF >< awareness (?strength vs relax), Therapeutic Exercises, Therapeutic Activities, Neuromuscular Reeducation.
--- NOTE | 2024-05-18 16:02 | PT.OTN ---
Addendum entered and electronically signed by Randa Toledo, PT 05/18/24 16:06: PUF score 14. LBP 3-4/10, handy lateral hip pain 2/10, Anterior PF 2/10 Original Note: Current Diagnoses Sacrococcygeal disorders, not elsewhere classified (05/18/24) Cystocele, unspecified (05/18/24) Unspecified dyspareunia (05/18/24) Flatulence (05/18/24) Fecal urgency (05/18/24) Physical Therapy Treatment Note PT-OP-A Visit Information Start: 01/29/24 13:09 Freq: Status: Active Protocol: Document 05/18/24 07:32 LRN (Rec: 05/18/24 08:18 LRN [id number]) Out-Patient Physical Therapy Visit Information Visit Information Visit Type Treatment Note Visit Start Time 07:32 Visit Stop Time 08:12 Visit Number 01/03 Evaluation Information Evaluation Date 02/25/24 Precautions Precautions IUD 2/7 yrs in. Seizures? Concussion age 9, thyroid disorder, 4G4P with much pain during 3rd , quick delivery and tearing of unknown degree. PT-OP-B Current Condition Start: 01/29/24 13:09 Freq: Status: Active Protocol: Document 02/25/24 07:32 LRN (Rec: 02/25/24 08:24 LRN [id number]) Current Condition History of Current Condition Onset Date 2014 Current Complaints Having a lot of tailbone pn, heaviness ant lwr abdomen, discomfort in sup. History of Current Condition Has been a runner all her life , moved to [place] and was training for a 10 mile race, then felt like she was sitting on a tennis ball. Stopped running and saw a PT at [facility]ist clinic, but stopped after 2 months because she felt it wasn't helpful, other than what stopping running achieved . Pt is 4G4P and had significant tearing with the first childbirth, but normal and running for exercise until time of delivery w/o pain (oldest child is 18). 2nd she felt a moderate amount of discomfort in anterior pubic region. 3rd she had much pubic pain due to baby with large head and delivered fast was fast, < 3 hrs) resulting in post decreased sensation with intercourse. Pt calls needing stitches, but doesn't know the degree of tearing. 4th child was induced delivery and felt was normal, without pain. In August of 2023 she began running 1 mile/day for 20 days and had to stop because of new tailbone pain and heaviness with bulging in the perineum, but not the tennis ball feeling. When having intercourse feels like there is a tissue restricting insertion and is uncomfortable . She plans on discussing with her PCP about starting estrogen creme. She swam and walked with last 3 pregnancies. Currently, sometimes walking to the bathroom she has loss of small fecal matter at work and when out in public, mostly at home . C/o with intercourse she is not able to complete an orgasm, and it is not as intense since the of her 3rd child. Has been told she potentially she will need surgery to repair the PF or rectocele. Treatment Goals Patient/Caregiver Goals Pt goals: Decrease or eliminate tailbone pain (that started in 09/12 after trying running). Decrease heaviness in lower abdomen (2/10), minimal before starting running (1/10) [place] more comfortable Be able to incorporate wgt training in her ex program. ( Restore your core) Improve level of fecal continence. 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 PT-OP-C Subjective Start: 01/29/24 13:09 Freq: Status: Active Protocol: Document 05/18/24 07:32 LRN (Rec: 05/18/24 08:18 LRN [id number]) OP-PT Subjective Patient Comments Patient Comments Change in sleep positioning, now sleeps in alignment with pillow between knees. Patient Questionnaires Pelvic Pain and Urgency/Frequency Patient Symptom Scale Pelvic Pain Score 14 PT-OP-I Pelvic Floor Start: 01/29/24 13:09 Freq: Status: Active Protocol: Document 05/18/24 07:32 LRN (Rec: 05/18/24 08:18 LRN [id number]) Pelvic Floor Assessment Contraction Ability Manual Muscle Testing Left 3 Manual Muscle Testing Right 2 Manual Muscle Testing Anterior 2 Manual Muscle Testing Posterior 3 Muscle Endurance (Seconds) 10 Number of Quick Contractions In 10 6 Seconds PT-OP-J Posture/Palpation/Skin Start: 11/09/24 13:09 Freq: Status: Active Protocol: Document 02/25/24 07:32 LRN (Rec: 02/25/24 08:24 LRN [id number]) Posture Evaluation Position Standing Shoulder Posture (L) Elevated Scapula Posture (R) Retracted Pelvis Posture (L) PSIS Posterior,(L) ASIS Posterior Comments Posture Comments Dowagers hump, Sacrum L rotated, R PSIS is more lateral than L. In sitting: Pt sits with legs crossed, reportedly for comfort. PT-OP-K Range of Motion Start: 01/29/24 13:09 Freq: Status: Active Protocol: Document 04/20/24 07:32 LRN (Rec: 04/20/24 08:17 LRN [id number]) Hip Goniometric Range of Motion Hip Right Passive Testing Position Supine Internal Rotation 45 External Rotation 70 Left Passive Testing Position Supine Internal Rotation 45 External Rotation 50 PT-OP-M Strength Start: 01/29/24 13:09 Freq: Status: Active Protocol: Document 02/25/24 07:32 LRN (Rec: 02/25/24 08:24 LRN [id number]) Hip Strength Hip Manual Muscle Testing Right Flexion (L2) 3+ Fair+ Internal Rotation 4+ Good+ Left Flexion (L2) 3+ Fair+ Extension (S1) 3 Fair Abduction 3+ Fair+ External Rotation 3+ Fair+ Internal Rotation 4+ Good+ PT-OP-Q Treatments Start: 01/29/24 13:09 Freq: Status: Active Protocol: Document 05/18/24 07:32 LRN (Rec: 05/18/24 15:33 LRN [id number]) Therapeutic Exercises Supine Exercises Kegels, quick/long Supine Exercise Name Quick & Long Hold Kegels Reps/Minutes 1-2 SH x 2 sets of 10 Quick, 10 SH x 2 Long hold Comments PF strength tested Standing Exercises Trunk stretch Standing Exercise Name Stretch to L lateral trunk (SB ) and L trunk rotators (L Rot) . Side left Reps/Minutes 4' Manual Therapy Treatment Consent Patient gave verbal consent for manual Yes treatment Soft Tissue Mobilization PF Body Location L Pubococcygeal ms, Superficial and deep 3-6 of PF clock Mobilization Type Strumming,Sustained Pressure Intensity/Depth super>mod Body Position Supine Comments Pt I/S in use of wand for self stretch to L superficial and deep ms using side of wand to press gently into PF and emphasized no pain with stretch. Abdomen Body Location Lower Abdomen Cephalad lift and R lateral MFR Mobilization Type Myofascial Release Intensity/Depth Moderate Body Position Supine Self-Care/Home Management Treatment Education Other Education Discussed results of assessment, goals, treatment and plan of care (POC) with pt ; pt agreeable to goals, treatment, and POC. Activities Self-Care/Home Management Activities Issued medium wand for self care PF stretch (see manual therapy - PF). PT-OP-T Assessment and Plan Start: 01/29/24 13:09 Freq: Status: Active Protocol: Document 05/18/24 07:32 LRN (Rec: 05/18/24 08:18 LRN [id number]) Physical Therapy Assessment Goals Five Impairment Fecal incontinence Short Term Goal (STG) Improve posterior PF strength with pt able to control passing of gas in public. 04/20/24: A little better controlling gas. STG Duration 04/07/24 progressing 04/20/24 [facility] Goal (LTG) Improve posterior PF strength with pt able to walk to the bathroom wthout loss of small fecal matter at work and when out in public. LTG Duration 05/19/24 Four Impairment Dyspareunia and inability to complete orgasm. Short Term Goal (STG) Decrease discomfort with intercourse. 04/20/24: Discomfort with dryness. Extra use of lub make it more comfortable. STG Duration 04/07/24 (04/20/24: MET GOAL ) Framing Machine Tender Goal (LTG) Pt will be able to achieve orgasm with use of pre- intercourse activities and mindfulness activities. LTG Duration 05/19/24 Three Impairment Heaviness pain in lower abdomen (2/10) Short Term Goal (STG) Decrease constant feeling of heaviness in the lower abdoment to intermittent. 04/20/24: No discomfort because not running or exercising. Has it by the end of the day (still walking). STG Duration 04/07/24 progress w/o running 04/20/24(need no heaviness end of day & run) Framing Machine Tender Goal (LTG) Eliminate heaviness in the lower abdomen by pt able to demonstrate wgt lifting exercise with proper breathing mechanics. 04/20/24: Pt demonstrates ability to lift 2# wgt with improved breath mechanics ( changed to exhale with lift f/ b inhale). LTG Duration 05/19/24 progressed 04/20/24 (need eliminate heaviness w/ lifting) Two Impairment Constant tailbone pain worse in sitting & supine Short Term Goal (STG) Eliminate tailbone pain with pt able to tolerate some supine lying for sleeping. 04/20/24: Able to lie on back to sleep. STG Duration 04/07/24 improved 04/20/24 ( need pain eliminated) Framing Machine Tender Goal (LTG) Decrease or tailbone pain with pt able to comfortably sit for car rides. LTG Duration 05/19/24 One Impairment Lacks appropriate self care HEP. Short Term Goal (STG) Pt will be educated and able to demonstrate proper deep breathing methods for having a bowel mvmt to minimize an increase in core pressure. 03/03/24: Pt educated in proper core pressure mgmt for transfers. 04/03/24: Pt reporting ability to have BM w/o valsalva pushing. STG Duration 04/07/24 (04/03/24: MET GOAL ) [facility] Goal (LTG) Pt will be independent in a self care HEP for PF strengthening in all positions , and able to incorporate wgt training in her ex program without onset of bulge in perineum (to include Restore your core program). 03/03/24: HEP: Kegels (quick , long hold) & Deep breathing. 04/03/24: HEP: Fig 4, Piriformis, & Lateral Hip stretch. LTG Duration 05/19/24 progressed 04/03/23 Assessment Summary Assessment Pt is a 48 yo female w/ tailbone pain (sit & sup), R coccygeal muscles tightness, & probable perineal muscle dysfunction based on history, lower abdominal heaviness, dyspareunia and difficulty achieving full orgasm, mildly dec'd hip mobility and strength, decr'd ability to return to exercise (wgt lifting). The patient has had reduction in her coccyx pain and is now able to sleep in both supine and sidelie. She has been able to achieve more comfort with intercourse with use of extra lubrication and preparatory stretch exercises. I will start increasing focus on her PF tightness to help her return to prior level of achieving orgasm and to decrease her level of fecal incontinence. The pt may benefit from assessment of her PF by Dr Hosea Jimenez for possible Levator Ani tear. The pt will benefit from continued skilled physical therapy to improve in the areas previously mentioned and to achieve the above stated goals. Physical Therapy Plan Frequency and Duration Frequency of Treatment Every Other Week Duration of treatment (weeks) 12 Plan of Care Start Date 05/18/24 Plan of Care End Date 08/12/24 Therapeutic Interventions Therapeutic Interventions Home Exercise Program,Joint Mobilizations,Manual Therapy, Neuromuscular Re-education, Self-Care/Home Management,Soft Tissue Mobilization, Therapeutic Activities, Therapeutic Exercises Modalities Biofeedback,Electric Stimulation Other Referrals/Consults Referrals/Consults Recommended Recommend referral to Dr. Hosea Jimenez, Urogynocologist for assessment of PF for possible Levator Ani Tear, with resulting fecal incontinence & Coccyx pain. Next Visit Focus/Plan Next Note Type Treatment Note Next Visit Plan Next: Every other week with pt working more at home on PF stretching, posture, positioning, & exercise due to limited PT visits. Assess response to sacral balancing & coccyx ms release (coccyx pain sup & sitting). Assess for L/S trunk shift (?L) and check for if umbilicus is shfited L compared to xyphoid process. Assess for bladder prolapse and pain with intercourse (tissue restricting insertion) and need for strengthening on wedge. Assess DR for abdominal strengthening. Manual STM to abdomen and externally area of anterior PF. If needed, coccygeal ms mob internally. Teach coccygeal ms stretch with swim noodle. Review if needed hip stretches. PF strengthening on wedge & L hip/apparatus operator PF strengthening ( avoid over tightening of more external coccygeal/gluteal ms) . Neuro-nancy training of PF from substitute ms. ?EStim PF for ms relaxation. POC: Pt education, Manual therapy. Biofeedback with vaginal or rectal sensor for PF >< awareness (?strength vs relax), Therapeutic Exercises, Therapeutic Activities, Neuromuscular Reeducation.
--- NOTE | 2024-06-08 16:18 | PT.OTN ---
Current Diagnoses Sacrococcygeal disorders, not elsewhere classified (06/08/24) Cystocele, unspecified (06/08/24) Unspecified dyspareunia (06/08/24) Flatulence (06/08/24) Fecal urgency (06/08/24) Physical Therapy Treatment Note PT-OP-A Visit Information Start: 01/29/24 13:09 Freq: Status: Active Protocol: Document 06/08/24 15:02 LRN (Rec: 06/08/24 16:18 LRN [id number]) Out-Patient Physical Therapy Visit Information Visit Information Visit Type Progress Note Visit Start Time 07:33 Visit Stop Time 08:36 Visit Number 11 (25 allowed for year) Evaluation Information Evaluation Date 02/25/24 Precautions Precautions IUD 2/7 yrs in. Seizures? Concussion age 9, thyroid disorder, 4G4P with much pain during 3rd , quick delivery in supine and tearing of unknown degree. PT-OP-B Current Condition Start: 01/29/24 13:09 Freq: Status: Active Protocol: Document 02/25/24 07:32 LRN (Rec: 02/25/24 08:24 LRN [id number]) Current Condition History of Current Condition Onset Date 2014 Current Complaints Having a lot of tailbone pn, heaviness ant lwr abdomen, discomfort in sup. History of Current Condition Has been a runner all her life , moved to [place] and was training for a 10 mile race, then felt like she was sitting on a tennis ball. Stopped running and saw a PT at [facility], but stopped after 2 months because she felt it wasn't helpful, other than what stopping running achieved . Pt is 4G4P and had significant tearing with the first childbirth, but normal and running for exercise until time of delivery w/o pain (oldest child is 18). 2nd she felt a moderate amount of discomfort in anterior pubic region. 3rd she had much pubic pain due to baby with large head and delivered fast was fast, < 3 hrs) resulting in post decreased sensation with intercourse. Pt calls needing stitches, but doesn't know the degree of tearing. 4th child was induced delivery and felt was normal, without pain. In August of 2023 she began running 1 mile/day for 20 days and had to stop because of new tailbone pain and heaviness with bulging in the perineum, but not the tennis ball feeling. When having intercourse feels like there is a tissue restricting insertion and is uncomfortable . She plans on discussing with her PCP about starting estrogen creme. She swam and walked with last 3 pregnancies. Currently, sometimes walking to the bathroom she has loss of small fecal matter at work and when out in public, mostly at home . C/o with intercourse she is not able to complete an orgasm, and it is not as intense since the of her 3rd child. Has been told she potentially she will need surgery to repair the PF or rectocele. Treatment Goals Patient/Caregiver Goals Pt goals: Decrease or eliminate tailbone pain (that started in 09/12 after trying running). Decrease heaviness in lower abdomen (2/10), minimal before starting running (1/10) Rheems more comfortable Be able to incorporate wgt training in her ex program. ( Restore your core) Improve level of fecal continence. 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 PT-OP-C Subjective Start: 01/29/24 13:09 Freq: Status: Active Protocol: Document 06/08/24 15:02 LRN (Rec: 06/08/24 16:18 LRN [id number]) OP-PT Subjective Patient Comments Patient Comments States started estradiol and has made a big improvement in the comfort with intercourse. Able to sit for car rides 2 hrs. Pt would like to be able to exercise (wgts or run) without causing injury to her PF and return of symptoms; therefore would like to continue through the summer with PT as scheduling can be difficult at times. PT-OP-I Pelvic Floor Start: 01/29/24 13:09 Freq: Status: Active Protocol: Document 06/08/24 15:02 LRN (Rec: 06/08/24 16:18 LRN [id number]) Pelvic Floor Assessment Pelvic Clock Pelvic Clock Other Pelvic clock 4-8 tenderness, greatest at L 4-6 Inter-Rectal Assessment Not performed due to time constraints. Prolapse Cystocele Grade 2 Urethrocele Grade 1 Prolapse Comments Bladder does not extend past hymen location. Perineal Descent Resting Absent Bearing Present Contraction Ability Voluntary Contraction Moderate Voluntary Relaxation Weak Manual Muscle Testing Left 3 Manual Muscle Testing Right 3 Manual Muscle Testing Anterior 3 Manual Muscle Testing Posterior 3 Muscle Endurance (Seconds) 10 Number of Quick Contractions In 10 10 Seconds PT-OP-J Posture/Palpation/Skin Start: 01/29/24 13:09 Freq: Status: Active Protocol: Document 02/25/24 07:32 LRN (Rec: 02/25/24 08:24 LRN [id number]) Posture Evaluation Position Standing Shoulder Posture (L) Elevated Scapula Posture (R) Retracted Pelvis Posture (L) PSIS Posterior,(L) ASIS Posterior Comments Posture Comments Dowagers hump, Sacrum L rotated, R PSIS is more lateral than L. In sitting: Pt sits with legs crossed, reportedly for comfort. PT-OP-K Range of Motion Start: 01/29/24 13:09 Freq: Status: Active Protocol: Document 04/20/24 07:32 LRN (Rec: 04/20/24 08:17 LRN [id number]) Hip Goniometric Range of Motion Hip Right Passive Testing Position Supine Internal Rotation 45 External Rotation 70 Left Passive Testing Position Supine Internal Rotation 45 External Rotation 50 PT-OP-M Strength Start: 01/29/24 13:09 Freq: Status: Active Protocol: Document 02/25/24 07:32 LRN (Rec: 02/25/24 08:24 LRN [id number]) Hip Strength Hip Manual Muscle Testing Right Flexion (L2) 3+ Fair+ Internal Rotation 4+ Good+ Left Flexion (L2) 3+ Fair+ Extension (S1) 3 Fair Abduction 3+ Fair+ External Rotation 3+ Fair+ Internal Rotation 4+ Good+ PT-OP-Q Treatments Start: 01/29/24 13:09 Freq: Status: Active Protocol: Document 06/08/24 15:02 LRN (Rec: 06/08/24 16:18 LRN [id number]) Therapeutic Exercises Supine Exercises IT Band/Piriformis stretch Side bilateral Reps/Minutes 4' Lateral Hip stretch Side bilateral Reps/Minutes 4' Hip ER stretch Supine Exercise Name L>R Reps/Minutes 3' Happy Baby stretch Reps/Minutes 2' Kegels, quick/long Reps/Minutes 9' Comments MMT taken, endurance assessed Manual Therapy Treatment Soft Tissue Mobilization PF Body Location Posterior PF, L>R Mobilization Type Sustained Pressure Intensity/Depth Moderate Body Position Supine Comments Extra time to determine area of discomfort in the PF ( anterior, posterior, external perineal node/perineum). Self-Care/Home Management Treatment Education Other Education Discussed at length pt progress towards goals, treatment, and POC/goals. Discussed & recommended pt be more mindful of any feelings of need to pass gas at home in order to prevent accidental passing of gas. Discussed PF tightening ex while walking. Initially encouraged, but after PF assessment I/S pt to hold on PF strengthening with walking due to good PF contraction strength per vaginal assessment. Discussed and educated pt in use of breathwork with wgt lifting ex to minimize any negative effect on PF. Activities Self-Care/Home Management Activities I/S pt to bring list of old & current wgt lifting ex's she is doing at home currently for review and training. PT-OP-T Assessment and Plan Start: 01/29/24 13:09 Freq: Status: Active Protocol: Document 06/08/24 15:02 LRN (Rec: 06/08/24 16:18 LRN [id number]) Physical Therapy Assessment Rehab Potential Rehabilitation Potential Good Evaluation Complexity Number of Personal Factors/Comorbidities 1-2 Number of Body Systems Impaired 4 or More Clinical Presentation at Evaluation Evolving Impairments Impairments Activity Tolerance,Pain,ROM, Sensation,Soft Tissue Mobility ,Strength,Transfers Goals Five Impairment Fecal incontinence Short Term Goal (STG) Improve posterior PF strength with pt able to control passing of gas in public. 04/20/24: A little better controlling gas. 06/18/24: Able to control at work/public most of the time, and can walk away to pass gas; at home has loss of control. STG Duration 04/07/24 progressing 06/08/24 Jail Goal (LTG) Improve posterior PF strength with pt able to walk to the bathroom wthout loss of small fecal matter at work and when out in public. 06/08/24: No fecal leakage if reponds to urge in timely manner. LTG Duration 05/19/24 (06/08/24: MET GOAL ) Four Impairment Dyspareunia and inability to complete orgasm. Short Term Goal (STG) Decrease discomfort with intercourse. 04/20/24: Discomfort with dryness. Extra use of lub make it more comfortable. STG Duration 04/07/24 (04/20/24: MET GOAL ) Jail Goal (LTG) Pt will be able to achieve orgasm with use of pre- intercourse activities and mindfulness activities. 06/08/24: Since use of estradiol she has been able to achieve orgasm. LTG Duration 05/19/24 (06/08/24: MET GOAL) Three Impairment Heaviness pain in lower abdomen (2/10) Short Term Goal (STG) Decrease constant feeling of heaviness in the lower abdomen to intermittent. 04/20/24: No discomfort because not running or exercising. Has it by the end of the day (still walking). 06/08/24: Intermittent heaviness in lower abdomen; discomfort at end of day. Not returned to running, afraid she might have to give it up. STG Duration 04/07/24 progressing 06/08/24 (need no heaviness end of day & run) Jail Goal (LTG) Eliminate heaviness in the lower abdomen by pt able to demonstrate wgt lifting exercise with proper breathing mechanics. 04/20/24: Pt demonstrates ability to lift 2# wgt with improved breath mechanics ( changed to exhale with lift f/ b inhale). LTG Duration 05/19/24 progressed 04/20/24 (need eliminate heaviness w/ lifting) Two Impairment Constant tailbone pain worse in sitting & supine Short Term Goal (STG) Eliminate tailbone pain with pt able to tolerate some supine lying for sleeping. 04/20/24: Able to lie on back to sleep. 06/08/24: Less pain with supine lying if keeps up with stretches. STG Duration 04/07/24 improved 04/20/24 ( need pain eliminated) Jail Goal (LTG) Decrease tailbone pain with pt able to comfortably sit for car rides. 06/08/24: Able to sit 2 hrs for car ride. LTG Duration 05/19/24 progressing 06/08/24 One Impairment Lacks appropriate self care HEP. Short Term Goal (STG) Pt will be educated and able to demonstrate proper deep breathing methods for having a bowel mvmt to minimize an increase in core pressure. 03/03/24: Pt educated in proper core pressure mgmt for transfers. 04/03/24: Pt reporting ability to have BM w/o valsalva pushing. STG Duration 04/07/24 (04/03/24: MET GOAL ) Jail Goal (LTG) Pt will be independent in a self care HEP for PF strengthening in all positions , and able to incorporate wgt training in her ex program without onset of bulge in perineum (to include Restore your core program). 03/03/24: HEP: Kegels (quick , long hold) & Deep breathing. 04/03/24: HEP: Fig 4, Piriformis, & Lateral Hip stretch. 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 Dspareunia and difficulty achieving full orgasm appears to have resolved since starting use of estradiol pills. Hip mobility and strength was not assessed today due to time limitations. The patient has had reduction in her coccyx pain and is now able to sleep in both supine and sidelie, but sometimes still has pain in supine. The patient has not yet progressed to return to wgt lifting exercise and is interested in possible return to running, but is fearful of return of pain and/or fecal leakage. The pt has made such good progress from a month ago; therefore it is expected that she will benefit from further PF therapy to work towards progress of her above stated goals above, before referring her to Dr Hosea Jimenez for possible Levator Ani tear. Physical Therapy Plan Frequency and Duration Frequency of Treatment Every Other Week Duration of treatment (weeks) 16 Plan of Care Start Date 06/08/24 Plan of Care End Date 09/29/24 Therapeutic Interventions Therapeutic Interventions Home Exercise Program,Joint Mobilizations,Manual Therapy, Neuromuscular Re-education, Self-Care/Home Management,Soft Tissue Mobilization, Therapeutic Activities, Therapeutic Exercises Modalities Biofeedback,Electric Stimulation Next Visit Focus/Plan Next Note Type Treatment Note Next Visit Plan NEXT: Assess posterior PF ( anal) & PF/(?anal) Vemg for strength/endurance in absence of gluteals, assess for bladder prolapse and abdominal heaviness pain, assess hip mobility (review if needed hip stretches), and hip strength. POC: Sacral balancing and trP to posterior PF to reduce sacral pain, Posterior PF (on wedge)/today L>R SIJ/core stab strengthening, review pt' s HEP for appropriateness, training on breath w/exer & progression towards return to wgt lifing program; possibly return to running. If needed, coccygeal ms mob internally. Teach coccygeal ms stretch with swim noodle. Monitor response to sacral balancing & coccyx ms release (coccyx pain sup & sitting). Assess for L/S trunk shift (?L ) and check for if umbilicus is shfited L compared to xyphoid process. Later: Assess DR for abdominal strengthening. Manual STM to abdomen and externally area of anterior PF. 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 Neuro-nancy training of PF from substitute ms. Pt working more at home on PF stretching, posture, positioning, & exercise.
--- NOTE | 2024-06-08 16:26 | PT.OTN ---
Current Diagnoses Sacrococcygeal disorders, not elsewhere classified (06/08/24) Cystocele, unspecified (06/08/24) Unspecified dyspareunia (06/08/24) Flatulence (06/08/24) Fecal urgency (06/08/24) Physical Therapy Treatment Note PT-OP-A Visit Information Start: 01/29/24 13:09 Freq: Status: Active Protocol: Document 06/08/24 15:02 LRN (Rec: 06/08/24 16:18 LRN [id number]) Out-Patient Physical Therapy Visit Information Visit Information Visit Type Progress Note Visit Start Time 07:33 Visit Stop Time 08:36 Visit Number 11 (25 allowed for year) Evaluation Information Evaluation Date 02/25/24 Precautions Precautions IUD 2/7 yrs in. Seizures? Concussion age 9, thyroid disorder, 4G4P with much pain during 3rd , quick delivery in supine and tearing of unknown degree. PT-OP-B Current Condition Start: 01/29/24 13:09 Freq: Status: Active Protocol: Document 02/25/24 07:32 LRN (Rec: 02/25/24 08:24 LRN [id number]) Current Condition History of Current Condition Onset Date 2014 Current Complaints Having a lot of tailbone pn, heaviness ant lwr abdomen, discomfort in sup. History of Current Condition Has been a runner all her life , moved to [place] and was training for a 10 mile race, then felt like she was sitting on a tennis ball. Stopped running and saw a PT at [facility] clinic, but stopped after 2 months because she felt it wasn't helpful, other than what stopping running achieved . Pt is 4G4P and had significant tearing with the first childbirth, but normal and running for exercise until time of delivery w/o pain (oldest child is 18). 2nd she felt a moderate amount of discomfort in anterior pubic region. 3rd she had much pubic pain due to baby with large head and delivered fast was fast, < 3 hrs) resulting in post decreased sensation with intercourse. Pt calls needing stitches, but doesn't know the degree of tearing. 4th child was induced delivery and felt was normal, without pain. In August of 2023 she began running 1 mile/day for 20 days and had to stop because of new tailbone pain and heaviness with bulging in the perineum, but not the tennis ball feeling. When having intercourse feels like there is a tissue restricting insertion and is uncomfortable . She plans on discussing with her PCP about starting estrogen creme. She swam and walked with last 3 pregnancies. Currently, sometimes walking to the bathroom she has loss of small fecal matter at work and when out in public, mostly at home . C/o with intercourse she is not able to complete an orgasm, and it is not as intense since the of her 3rd child. Has been told she potentially she will need surgery to repair the PF or rectocele. Treatment Goals Patient/Caregiver Goals Pt goals: Decrease or eliminate tailbone pain (that started in 09/12 after trying running). Decrease heaviness in lower abdomen (2/10), minimal before starting running (1/10) [place] more comfortable Be able to incorporate wgt training in her ex program. ( Restore your core) Improve level of fecal continence. 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 PT-OP-C Subjective Start: 01/29/24 13:09 Freq: Status: Active Protocol: Document 06/08/24 15:02 LRN (Rec: 06/08/24 16:18 LRN [id number]) OP-PT Subjective Patient Comments Patient Comments States started estradiol and has made a big improvement in the comfort with intercourse. Able to sit for car rides 2 hrs. Pt would like to be able to exercise (wgts or run) without causing injury to her PF and return of symptoms; therefore would like to continue through the summer with PT as scheduling can be difficult at times. PT-OP-I Pelvic Floor Start: 01/29/24 13:09 Freq: Status: Active Protocol: Document 06/08/24 15:02 LRN (Rec: 06/08/24 16:18 LRN [id number]) Pelvic Floor Assessment Pelvic Clock Pelvic Clock Other Pelvic clock 4-8 tenderness, greatest at L 4-6 Inter-Rectal Assessment Not performed due to time constraints. Prolapse Cystocele Grade 2 Urethrocele Grade 1 Prolapse Comments Bladder does not extend past hymen location. Perineal Descent Resting Absent Bearing Present Contraction Ability Voluntary Contraction Moderate Voluntary Relaxation Weak Manual Muscle Testing Left 3 Manual Muscle Testing Right 3 Manual Muscle Testing Anterior 3 Manual Muscle Testing Posterior 3 Muscle Endurance (Seconds) 10 Number of Quick Contractions In 10 10 Seconds PT-OP-J Posture/Palpation/Skin Start: 01/29/24 13:09 Freq: Status: Active Protocol: Document 02/25/24 07:32 LRN (Rec: 02/25/24 08:24 LRN [id number]) Posture Evaluation Position Standing Shoulder Posture (L) Elevated Scapula Posture (R) Retracted Pelvis Posture (L) PSIS Posterior,(L) ASIS Posterior Comments Posture Comments Dowagers hump, Sacrum L rotated, R PSIS is more lateral than L. In sitting: Pt sits with legs crossed, reportedly for comfort. PT-OP-K Range of Motion Start: 01/29/24 13:09 Freq: Status: Active Protocol: Document 04/20/24 07:32 LRN (Rec: 04/20/24 08:17 LRN [id number]) Hip Goniometric Range of Motion Hip Right Passive Testing Position Supine Internal Rotation 45 External Rotation 70 Left Passive Testing Position Supine Internal Rotation 45 External Rotation 50 PT-OP-M Strength Start: 01/29/24 13:09 Freq: Status: Active Protocol: Document 02/25/24 07:32 LRN (Rec: 02/25/24 08:24 LRN [id number]) Hip Strength Hip Manual Muscle Testing Right Flexion (L2) 3+ Fair+ Internal Rotation 4+ Good+ Left Flexion (L2) 3+ Fair+ Extension (S1) 3 Fair Abduction 3+ Fair+ External Rotation 3+ Fair+ Internal Rotation 4+ Good+ PT-OP-Q Treatments Start: 01/29/24 13:09 Freq: Status: Active Protocol: Document 06/08/24 15:02 LRN (Rec: 06/08/24 16:18 LRN [id number]) Therapeutic Exercises Supine Exercises IT Band/Piriformis stretch Side bilateral Reps/Minutes 4' Lateral Hip stretch Side bilateral Reps/Minutes 4' Hip ER stretch Supine Exercise Name L>R Reps/Minutes 3' Happy Baby stretch Reps/Minutes 2' Kegels, quick/long Reps/Minutes 9' Comments MMT taken, endurance assessed Manual Therapy Treatment Soft Tissue Mobilization PF Body Location Posterior PF, L>R Mobilization Type Sustained Pressure Intensity/Depth Moderate Body Position Supine Comments Extra time to determine area of discomfort in the PF ( anterior, posterior, external perineal node/perineum). Self-Care/Home Management Treatment Education Other Education Discussed at length pt progress towards goals, treatment, and POC/goals. Discussed & recommended pt be more mindful of any feelings of need to pass gas at home in order to prevent accidental passing of gas. Discussed PF tightening ex while walking. Initially encouraged, but after PF assessment I/S pt to hold on PF strengthening with walking due to good PF contraction strength per vaginal assessment. Discussed and educated pt in use of breathwork with wgt lifting ex to minimize any negative effect on PF. Activities Self-Care/Home Management Activities I/S pt to bring list of old & current wgt lifting ex's she is doing at home currently for review and training. PT-OP-T Assessment and Plan Start: 01/29/24 13:09 Freq: Status: Active Protocol: Document 06/08/24 15:02 LRN (Rec: 06/08/24 16:18 LRN [id number]) Physical Therapy Assessment Rehab Potential Rehabilitation Potential Good Evaluation Complexity Number of Personal Factors/Comorbidities 1-2 Number of Body Systems Impaired 4 or More Clinical Presentation at Evaluation Evolving Impairments Impairments Activity Tolerance,Pain,ROM, Sensation,Soft Tissue Mobility ,Strength,Transfers Goals Five Impairment Fecal incontinence Short Term Goal (STG) Improve posterior PF strength with pt able to control passing of gas in public. 04/20/24: A little better controlling gas. 06/18/24: Able to control at work/public most of the time, and can walk away to pass gas; at home has loss of control. STG Duration 08/03/24 progressing 06/08/24 Usp Goal (LTG) Improve posterior PF strength with pt able to walk to the bathroom wthout loss of small fecal matter at work and when out in public. 06/08/24: No fecal leakage if reponds to urge in timely manner. LTG Duration 05/19/24 (06/08/24: MET GOAL ) Four Impairment Dyspareunia and inability to complete orgasm. Short Term Goal (STG) Decrease discomfort with intercourse. 04/20/24: Discomfort with dryness. Extra use of lub make it more comfortable. STG Duration 04/07/24 (04/20/24: MET GOAL ) Usp Goal (LTG) Pt will be able to achieve orgasm with use of pre- intercourse activities and mindfulness activities. 06/08/24: Since use of estradiol she has been able to achieve orgasm. LTG Duration 05/19/24 (06/08/24: MET GOAL) Three Impairment Heaviness pain in lower abdomen (2/10) Short Term Goal (STG) Decrease constant feeling of heaviness in the lower abdomen to intermittent. 04/20/24: No discomfort because not running or exercising. Has it by the end of the day (still walking). 06/08/24: Intermittent heaviness in lower abdomen; discomfort at end of day. Not returned to running, afraid she might have to give it up. STG Duration 08/03/24 progressing 06/08/24 (need no heaviness end of day & run) Usp Goal (LTG) Eliminate heaviness in the lower abdomen by pt able to demonstrate wgt lifting exercise with proper breathing mechanics. 04/20/24: Pt demonstrates ability to lift 2# wgt with improved breath mechanics ( changed to exhale with lift f/ b inhale). LTG Duration 09/29/24 progressed 04/20/24 (need eliminate heaviness w/ lifting) Two Impairment Constant tailbone pain worse in sitting & supine Short Term Goal (STG) Eliminate tailbone pain with pt able to tolerate some supine lying for sleeping. 04/20/24: Able to lie on back to sleep. 06/08/24: Less pain with supine lying if keeps up with stretches. STG Duration 08/03/24 improved 04/20/24 ( need pain eliminated) Usp Goal (LTG) Decrease tailbone pain with pt able to comfortably sit for car rides. 06/08/24: Able to sit 2 hrs for car ride. LTG Duration 09/29/24 progressing 06/08/24 One Impairment Lacks appropriate self care HEP. Short Term Goal (STG) Pt will be educated and able to demonstrate proper deep breathing methods for having a bowel mvmt to minimize an increase in core pressure. 03/03/24: Pt educated in proper core pressure mgmt for transfers. 04/03/24: Pt reporting ability to have BM w/o valsalva pushing. STG Duration 04/07/24 (04/03/24: MET GOAL ) Usp Goal (LTG) Pt will be independent in a self care HEP for PF strengthening in all positions , and able to incorporate wgt training in her ex program without onset of bulge in perineum (to include Restore your core program). 03/03/24: HEP: Kegels (quick , long hold) & Deep breathing. 04/03/24: HEP: Fig 4, Piriformis, & Lateral Hip stretch. 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 Dspareunia and difficulty achieving full orgasm appears to have resolved since starting use of estradiol pills. Hip mobility and strength was not assessed today due to time limitations. The patient has had reduction in her coccyx pain and is now able to sleep in both supine and sidelie, but sometimes still has pain in supine. The patient has not yet progressed to return to wgt lifting exercise and is interested in possible return to running, but is fearful of return of pain and/or fecal leakage. The pt has made such good progress from a month ago; therefore it is expected that she will benefit from further PF therapy to work towards progress of her above stated goals above, before referring her to Dr Hosea Jimenez for possible Levator Ani tear. Physical Therapy Plan Frequency and Duration Frequency of Treatment Every Other Week Duration of treatment (weeks) 16 Plan of Care Start Date 06/08/24 Plan of Care End Date 09/29/24 Therapeutic Interventions Therapeutic Interventions Home Exercise Program,Joint Mobilizations,Manual Therapy, Neuromuscular Re-education, Self-Care/Home Management,Soft Tissue Mobilization, Therapeutic Activities, Therapeutic Exercises Modalities Biofeedback,Electric Stimulation Next Visit Focus/Plan Next Note Type Treatment Note Next Visit Plan NEXT: Assess posterior PF ( anal) & PF/(?anal) Vemg for strength/endurance in absence of gluteals, assess for bladder prolapse and abdominal heaviness pain, assess hip mobility (review if needed hip stretches), and hip strength. POC: Sacral balancing and trP to posterior PF to reduce sacral pain, Posterior PF (on wedge)/today L>R SIJ/core stab strengthening, review pt' s HEP for appropriateness, training on breath w/exer & progression towards return to wgt lifing program; possibly return to running. If needed, coccygeal ms mob internally. Teach coccygeal ms stretch with swim noodle. Monitor response to sacral balancing & coccyx ms release (coccyx pain sup & sitting). Assess for L/S trunk shift (?L ) and check for if umbilicus is shfited L compared to xyphoid process. Later: Assess DR for abdominal strengthening. Manual STM to abdomen and externally area of anterior PF. PF strengthening on wedge & L hip/territory sales manager medical PF strengthening ( avoid over tightening of more external coccygeal/gluteal ms) . Neuro-nancy training of PF from substitute ms. Pt working more at home on PF stretching, posture, positioning, & exercise.
--- NOTE | 2024-07-03 17:12 | PT.OTN ---
Current Diagnoses Sacrococcygeal disorders, not elsewhere classified (07/03/24) Cystocele, unspecified (07/03/24) Unspecified dyspareunia (07/03/24) Flatulence (07/03/24) Fecal urgency (07/03/24) Physical Therapy Treatment Note PT-OP-A Visit Information Start: 01/29/24 13:09 Freq: Status: Active Protocol: Document 07/03/24 07:35 LRN (Rec: 07/03/24 08:21 LRN Laptop) Out-Patient Physical Therapy Visit Information Visit Information Visit Type Treatment Note Visit Start Time 07:35 Visit Stop Time 08:18 Visit Number 12 (25 allowed for year, 3 after PN) PT-OP-B Current Condition Start: 01/29/24 13:09 Freq: Status: Active Protocol: Document 02/25/24 07:32 LRN (Rec: 02/25/24 08:24 LRN [id number]) Current Condition History of Current Condition Onset Date 2014 Current Complaints Having a lot of tailbone pn, heaviness ant lwr abdomen, discomfort in sup. History of Current Condition Has been a runner all her life , moved to [place] and was training for a 10 mile race, then felt like she was sitting on a tennis ball. Stopped running and saw a PT [facility], but stopped after 2 months because she felt it wasn't helpful, other than what stopping running achieved . Pt is 4G4P and had significant tearing with the first childbirth, but normal and running for exercise until time of delivery w/o pain (oldest child is 18). 2nd she felt a moderate amount of discomfort in anterior pubic region. 3rd she had much pubic pain due to baby with large head and delivered fast was fast, < 3 hrs) resulting in post decreased sensation with intercourse. Pt calls needing stitches, but doesn't know the degree of tearing. 4th child was induced delivery and felt was normal, without pain. In August of 2023 she began running 1 mile/day for 20 days and had to stop because of new tailbone pain and heaviness with bulging in the perineum, but not the tennis ball feeling. When having intercourse feels like there is a tissue restricting insertion and is uncomfortable . She plans on discussing with her PCP about starting estrogen creme. She swam and walked with last 3 pregnancies. Currently, sometimes walking to the bathroom she has loss of small fecal matter at work and when out in public, mostly at home . C/o with intercourse she is not able to complete an orgasm, and it is not as intense since the of her 3rd child. Has been told she potentially she will need surgery to repair the PF or rectocele. Treatment Goals Patient/Caregiver Goals Pt goals: Decrease or eliminate tailbone pain (that started in 09/12 after trying running). Decrease heaviness in lower abdomen (2/10), minimal before starting running (1/10) [place] more comfortable Be able to incorporate wgt training in her ex program. ( Restore your core) Improve level of fecal continence. 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 PT-OP-C Subjective Start: 01/29/24 13:09 Freq: Status: Active Protocol: Document 07/03/24 07:35 LRN (Rec: 07/03/24 08:21 LRN Laptop) OP-PT Subjective Patient Comments Patient Comments Doing well with Estradiol cream. When traveled (3 hr flight) wasn't in pain in tailbone. Doing stretching with wand and using trigger gun in the low back. Got a massage referral but hasn't scheduled. Has been able to make it to the bathroom without pooping, once when sharing a bathroom with 4 other people. Patient Questionnaires Pelvic Floor Distress Inventory Questionnaire (PFDI- SF20) Pelvic Floor Score 221 PT-OP-I Pelvic Floor Start: 01/29/24 13:09 Freq: Status: Active Protocol: Document 06/08/24 15:02 LRN (Rec: 06/08/24 16:18 LRN [id number]) Pelvic Floor Assessment Pelvic Clock Pelvic Clock Other Pelvic clock 4-8 tenderness, greatest at L 4-6 Inter-Rectal Assessment Not performed due to time constraints. Prolapse Cystocele Grade 2 Urethrocele Grade 1 Prolapse Comments Bladder does not extend past hymen location. Perineal Descent Resting Absent Bearing Present Contraction Ability Voluntary Contraction Moderate Voluntary Relaxation Weak Manual Muscle Testing Left 3 Manual Muscle Testing Right 3 Manual Muscle Testing Anterior 3 Manual Muscle Testing Posterior 3 Muscle Endurance (Seconds) 10 Number of Quick Contractions In 10 10 Seconds PT-OP-J Posture/Palpation/Skin Start: 01/29/24 13:09 Freq: Status: Active Protocol: Document 02/25/24 07:32 LRN (Rec: 02/25/24 08:24 LRN [id number]) Posture Evaluation Position Standing Shoulder Posture (L) Elevated Scapula Posture (R) Retracted Pelvis Posture (L) PSIS Posterior,(L) ASIS Posterior Comments Posture Comments Dowagers hump, Sacrum L rotated, R PSIS is more lateral than L. In sitting: Pt sits with legs crossed, reportedly for comfort. PT-OP-K Range of Motion Start: 01/29/24 13:09 Freq: Status: Active Protocol: Document 07/03/24 07:35 LRN (Rec: 07/03/24 08:21 LRN Laptop) Hip Goniometric Range of Motion Hip Right Passive Testing Position Supine Internal Rotation 30 External Rotation 85 Left Passive Testing Position Supine Internal Rotation 45 External Rotation 70 PT-OP-M Strength Start: 01/29/24 13:09 Freq: Status: Active Protocol: Document 02/25/24 07:32 LRN (Rec: 02/25/24 08:24 LRN [id number]) Hip Strength Hip Manual Muscle Testing Right Flexion (L2) 3+ Fair+ Internal Rotation 4+ Good+ Left Flexion (L2) 3+ Fair+ Extension (S1) 3 Fair Abduction 3+ Fair+ External Rotation 3+ Fair+ Internal Rotation 4+ Good+ PT-OP-Q Treatments Start: 01/29/24 13:09 Freq: Status: Active Protocol: Document 07/03/24 07:35 LRN (Rec: 07/03/24 08:21 LRN Laptop) Therapeutic Exercises Supine Exercises IT Band/Piriformis stretch Supine Exercise Name Reviewed Side bilateral Reps/Minutes 4' Lateral Hip stretch Side bilateral Reps/Minutes 4' Hip ER stretch Supine Exercise Name L>R Reps/Minutes 3' Happy Baby stretch Reps/Minutes 2' Therapeutic Activity Therapeutic Activity Transfer training Name sit<>supine transfer with breath Reps/Minutes 5' Comments Phys & v cuing needed. Work floor sit Name Positional training for sitting on floor with kieds at work. Reps/Minutes 10' Comments Pt to side sit feet to R (side sit L), cross legged R on top , haunch sit; Avoid full squat sit. Sitting reaching forward with breath, PF contraction. PT-OP-T Assessment and Plan Start: 01/29/24 13:09 Freq: Status: Active Protocol: Document 07/03/24 07:35 LRN (Rec: 07/03/24 08:21 LRN Laptop) Physical Therapy Assessment Goals Five Impairment Fecal incontinence Short Term Goal (STG) Improve posterior PF strength with pt able to control passing of gas in public. 04/20/24: A little better controlling gas. 06/18/24: Able to control at work/public most of the time, and can walk away to pass gas; at home has loss of control. 07/03/24: 50% better controlling flatulence, sometimes has uncontrolled. Gaseous with dairy. STG Duration 08/03/24 progressing 07/03/24 Steel Rod Buster Goal (LTG) Improve posterior PF strength with pt able to walk to the bathroom wthout loss of small fecal matter at work and when out in public. 06/08/24: No fecal leakage if reponds to urge in timely manner. 07/04/24: 95% confident can make it to the bathroom. LTG Duration 05/19/24 (06/08/24: MET GOAL ) Four Impairment Dyspareunia and inability to complete orgasm. Short Term Goal (STG) Decrease discomfort with intercourse. 04/20/24: Discomfort with dryness. Extra use of lub make it more comfortable. STG Duration 04/07/24 (04/20/24: MET GOAL ) Usp Goal (LTG) Pt will be able to achieve orgasm with use of pre- intercourse activities and mindfulness activities. 06/08/24: Since use of estradiol she has been able to achieve orgasm. LTG Duration 05/19/24 (06/08/24: MET GOAL) Three Impairment Heaviness pain in lower abdomen (2/10) Short Term Goal (STG) Decrease constant feeling of heaviness in the lower abdomen to intermittent. 04/20/24: No discomfort because not running or exercising. Has it by the end of the day (still walking). 06/08/24: Intermittent heaviness in lower abdomen; discomfort at end of day. Not returned to running, afraid she might have to give it up. 07/03/24: Heaviness only at the end of a long day. STG Duration 08/03/24 (07/03/24: MET GOAL ) Usp Goal (LTG) Eliminate heaviness in the lower abdomen by pt able to demonstrate wgt lifting exercise with proper breathing mechanics. 04/20/24: Pt demonstrates ability to lift 2# wgt with improved breath mechanics ( changed to exhale with lift f/ b inhale). 07/03/24: Hasn't returned to wgt lifting (brought wgt), wanting to return to [employer] class. LTG Duration 09/29/24 progressed 04/20/24 (heaviness w/lifting, end of day & run) Two Impairment Constant tailbone pain worse in sitting & supine Short Term Goal (STG) Eliminate tailbone pain with pt able to tolerate some supine lying for sleeping. 04/20/24: Able to lie on back to sleep. 06/08/24: Less pain with supine lying if keeps up with stretches. 07/03/24: No tailbone pain with supine sleeping. STG Duration 08/03/24 (07/03/24: MET GOAL ) [employer] Goal (LTG) Decrease tailbone pain with pt able to comfortably sit for car rides. 06/08/24: Able to sit 2 hrs for car ride. 07/03/24: Able to sit on a plane for a 2.5 hr plane ride. LTG Duration 09/29/24 (07/03/24: MET GOAL ) One Impairment Lacks appropriate self care HEP. Short Term Goal (STG) Pt will be educated and able to demonstrate proper deep breathing methods for having a bowel mvmt to minimize an increase in core pressure. 03/03/24: Pt educated in proper core pressure mgmt for transfers. 04/03/24: Pt reporting ability to have BM w/o valsalva pushing. STG Duration 04/07/24 (04/03/24: MET GOAL ) Usp Goal (LTG) Pt will be independent in a self care HEP for PF strengthening in all positions , and able to incorporate wgt training in her ex program without onset of bulge in perineum (to include Restore your core program). 03/03/24: HEP: Kegels (quick , long hold) & Deep breathing. 04/03/24: HEP: Fig 4, Piriformis, & Lateral Hip stretch. LTG Duration 09/29/24 progressed 04/03/23 Assessment Summary Assessment Pt is progressing well, needs training for posturing at work , ex with hand wgt for rtn to wgt lifting ex & BF assess. Physical Therapy Plan Frequency and Duration Frequency of Treatment Every Other Week Duration of treatment (weeks) 16 Plan of Care Start Date 06/08/24 Plan of Care End Date 09/29/24 Next Visit Focus/Plan Next Note Type Treatment Note Next Visit Plan NEXT: Ex wgt training workout review before assess of posterior PF (anal) & PF/(? anal) Vemg for strength/ endurance in absence of gluteals, assess for bladder prolapse and abdominal heaviness pain, assess hip mobility (review if needed hip stretches), and hip strength. POC: Sacral balancing and trP to posterior PF to reduce sacral pain, Posterior PF (on wedge)/today L>R SIJ/core stab strengthening, review pt' s HEP for appropriateness, training on breath w/exer & progression towards return to wgt lifing program; possibly return to running. If needed, coccygeal ms mob internally. Teach coccygeal ms stretch with swim noodle. Monitor response to sacral balancing & coccyx ms release (coccyx pain sup & sitting). Assess for L/S trunk shift (?L ) and check for if umbilicus is shfited L compared to xyphoid process. Later: Assess DR for abdominal strengthening. Manual STM to abdomen and externally area of anterior PF. PF strengthening on wedge & L hip/brush and broom clipper PF strengthening ( avoid over tightening of more external coccygeal/gluteal ms) . Neuro-nancy training of PF from substitute ms. Pt working more at home on PF stretching, posture, positioning, & exercise.
--- NOTE | 2024-07-25 14:05 | PT.OTN ---
Current Diagnoses Sacrococcygeal disorders, not elsewhere classified (07/25/24) Cystocele, unspecified (07/25/24) Unspecified dyspareunia (07/25/24) Flatulence (07/25/24) Fecal urgency (07/25/24) Physical Therapy Treatment Note PT-OP-A Visit Information Start: 01/29/24 13:09 Freq: Status: Active Protocol: Document 07/25/24 07:31 LRN (Rec: 07/25/24 08:19 LRN Laptop) Out-Patient Physical Therapy Visit Information Visit Information Visit Type Treatment Note Visit Start Time 07:30 Visit Stop Time 08:15 Visit Number 13 (4 after PN, 25/yr) Evaluation Information Evaluation Date 02/25/24 Precautions Precautions IUD 2/7 yrs in. Seizures? Concussion age 9, thyroid disorder, 4G4P with much pain during 3rd , quick delivery in supine and tearing of unknown degree. PT-OP-B Current Condition Start: 01/29/24 13:09 Freq: Status: Active Protocol: Document 02/25/24 07:32 LRN (Rec: 02/25/24 08:24 LRN [id number]) Current Condition History of Current Condition Onset Date 2014 Current Complaints Having a lot of tailbone pn, heaviness ant lwr abdomen, discomfort in sup. History of Current Condition Has been a runner all her life , moved to [place] and was training for a 10 mile race, then felt like she was sitting on a tennis ball. Stopped running and saw a PT at [facility], but stopped after 2 months because she felt it wasn't helpful, other than what stopping running achieved . Pt is 4G4P and had significant tearing with the first childbirth, but normal and running for exercise until time of delivery w/o pain (oldest child is 18). 2nd she felt a moderate amount of discomfort in anterior pubic region. 3rd she had much pubic pain due to baby with large head and delivered fast was fast, < 3 hrs) resulting in post decreased sensation with intercourse. Pt calls needing stitches, but doesn't know the degree of tearing. 4th child was induced delivery and felt was normal, without pain. In August of 2023 she began running 1 mile/day for 20 days and had to stop because of new tailbone pain and heaviness with bulging in the perineum, but not the tennis ball feeling. When having intercourse feels like there is a tissue restricting insertion and is uncomfortable . She plans on discussing with her PCP about starting estrogen creme. She swam and walked with last 3 pregnancies. Currently, sometimes walking to the bathroom she has loss of small fecal matter at work and when out in public, mostly at home . C/o with intercourse she is not able to complete an orgasm, and it is not as intense since the of her 3rd child. Has been told she potentially she will need surgery to repair the PF or rectocele. Treatment Goals Patient/Caregiver Goals Pt goals: Decrease or eliminate tailbone pain (that started in 09/12 after trying running). Decrease heaviness in lower abdomen (2/10), minimal before starting running (1/10) [place] more comfortable Be able to incorporate wgt training in her ex program. ( Restore your core) Improve level of fecal continence. 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 PT-OP-C Subjective Start: 01/29/24 13:09 Freq: Status: Active Protocol: Document 07/25/24 07:31 LRN (Rec: 07/25/24 08:19 LRN Laptop) OP-PT Subjective Patient Comments Patient Comments Last weekend, did a long road trip and her L SIJ more painful. PT-OP-I Pelvic Floor Start: 01/29/24 13:09 Freq: Status: Active Protocol: Document 06/08/24 15:02 LRN (Rec: 06/08/24 16:18 LRN [id number]) Pelvic Floor Assessment Pelvic Clock Pelvic Clock Other Pelvic clock 4-8 tenderness, greatest at L 4-6 Inter-Rectal Assessment Not performed due to time constraints. Prolapse Cystocele Grade 2 Urethrocele Grade 1 Prolapse Comments Bladder does not extend past hymen location. Perineal Descent Resting Absent Bearing Present Contraction Ability Voluntary Contraction Moderate Voluntary Relaxation Weak Manual Muscle Testing Left 3 Manual Muscle Testing Right 3 Manual Muscle Testing Anterior 3 Manual Muscle Testing Posterior 3 Muscle Endurance (Seconds) 10 Number of Quick Contractions In 10 10 Seconds PT-OP-J Posture/Palpation/Skin Start: 01/29/24 13:09 Freq: Status: Active Protocol: Document 02/25/24 07:32 LRN (Rec: 02/25/24 08:24 LRN [id number]) Posture Evaluation Position Standing Shoulder Posture (L) Elevated Scapula Posture (R) Retracted Pelvis Posture (L) PSIS Posterior,(L) ASIS Posterior Comments Posture Comments Dowagers hump, Sacrum L rotated, R PSIS is more lateral than L. In sitting: Pt sits with legs crossed, reportedly for comfort. PT-OP-K Range of Motion Start: 01/29/24 13:09 Freq: Status: Active Protocol: Document 07/03/24 07:35 LRN (Rec: 07/03/24 08:21 LRN Laptop) Hip Goniometric Range of Motion Hip Right Passive Testing Position Supine Internal Rotation 30 External Rotation 85 Left Passive Testing Position Supine Internal Rotation 45 External Rotation 70 PT-OP-M Strength Start: 01/29/24 13:09 Freq: Status: Active Protocol: Document 02/25/24 07:32 LRN (Rec: 02/25/24 08:24 LRN [id number]) Hip Strength Hip Manual Muscle Testing Right Flexion (L2) 3+ Fair+ Internal Rotation 4+ Good+ Left Flexion (L2) 3+ Fair+ Extension (S1) 3 Fair Abduction 3+ Fair+ External Rotation 3+ Fair+ Internal Rotation 4+ Good+ PT-OP-Q Treatments Start: 01/29/24 13:09 Freq: Status: Active Protocol: Document 07/25/24 07:31 LRN (Rec: 07/25/24 08:19 LRN Laptop) Therapeutic Exercises Other Exercises [facility] Class exercises Other Exercise Name At [facility]: Squat, hip ext, and knee flex Reps/Minutes 8' Comments Cued to breath, and monitor posture to not draw in Post PF Pt's home wgt training program Other Exercise Name Biceps curl, butterfly, triceps, dips, shdr AB press ups, Equipment Used // bars for dips Reps/Minutes 3-4x 1, 10x 1 each (15') Comments Cued to count ex's outloud, ribcage over hips, kegel w/TA tight. Manual Therapy Treatment Soft Tissue Mobilization SIJ Body Location Sacral balancing Comments R SUlcas PA and inferior glide Sacral shear to R R YAYA PA R Isch tub PA PT-OP-T Assessment and Plan Start: 01/29/24 13:09 Freq: Status: Active Protocol: Document 07/25/24 07:31 LRN (Rec: 07/25/24 08:19 LRN Laptop) Physical Therapy Assessment Goals Three Impairment Heaviness pain in lower abdomen (2/10) Short Term Goal (STG) Decrease constant feeling of heaviness in the lower abdomen to intermittent. 04/20/24: No discomfort because not running or exercising. Has it by the end of the day (still walking). 06/08/24: Intermittent heaviness in lower abdomen; discomfort at end of day. Not returned to running, afraid she might have to give it up. 07/03/24: Heaviness only at the end of a long day. STG Duration 08/03/24 (07/03/24: MET GOAL ) [facility] Goal (LTG) Eliminate heaviness in the lower abdomen by pt able to demonstrate wgt lifting exercise with proper breathing mechanics. 04/20/24: Pt demonstrates ability to lift 2# wgt with improved breath mechanics ( changed to exhale with lift f/ b inhale). 07/03/24: Hasn't returned to wgt lifting (brought wgt), wanting to return to [place] class. LTG Duration 09/29/24 progressed 04/20/24 (heaviness w/lifting, end of day & run) One Impairment Lacks appropriate self care HEP. Short Term Goal (STG) Pt will be educated and able to demonstrate proper deep breathing methods for having a bowel mvmt to minimize an increase in core pressure. 03/03/24: Pt educated in proper core pressure mgmt for transfers. 04/03/24: Pt reporting ability to have BM w/o valsalva pushing. STG Duration 04/07/24 (04/03/24: MET GOAL ) [facility] Goal (LTG) Pt will be independent in a self care HEP for PF strengthening in all positions , and able to incorporate wgt training in her ex program without onset of bulge in perineum (to include Restore your core program). 03/03/24: HEP: Kegels (quick , long hold) & Deep breathing. 04/03/24: HEP: Fig 4, Piriformis, & Lateral Hip stretch. LTG Duration 09/29/24 progressed 04/03/23 Assessment Summary Assessment R SIJ stiff and mobilized with sacral balancing, much shifting on L side during manual therapy. Pt probably ready to resume wgt ex with breathwork and proper posturing (ribs over hips). Physical Therapy Plan Frequency and Duration Frequency of Treatment Every Other Week Duration of treatment (weeks) 16 Plan of Care Start Date 06/08/24 Plan of Care End Date 09/29/24 Next Visit Focus/Plan Next Note Type Treatment Note Next Visit Plan NEXT: check if pt has returned to wgt training ex's. Sacral balancing if needed, then Assess posterior PF & PF/ (?anal) Vemg for strength/ endurance in absence of GLUTEALS, assess for bladder prolapse and abdominal heaviness pain, assess hip mobility (review if needed hip stretches), and hip strength. Teach coccygeal ms stretch with swim noodle. PF strengthening on wedge & L hip/project management professor PF strengthening ( avoid over tightening of more external coccygeal/gluteal ms) . Assess DR for abdominal strengthening. Monitor response to sacral balancing & coccyx ms release (coccyx pain sup & sitting). Assess for correction of L/S trunk shift (?L) and check for umbilicus shfited L compared to xyphoid process. Manual STM (as needed) to abdomen and externally area of anterior PF. POC: Home program focus: PF stretching, posture, positioning, & exercise. Sacral balancing and trP to posterior PF to reduce sacral pain, Posterior PF (on wedge) /L>R SIJ/core stab strengthening, review pt's HEP for appropriateness, training on breath w/exer; ?return to running.
--- NOTE | 2024-08-07 20:52 | PT.OTN ---
Current Diagnoses Sacrococcygeal disorders, not elsewhere classified (08/07/24) Cystocele, unspecified (08/07/24) Unspecified dyspareunia (08/07/24) Flatulence (08/07/24) Fecal urgency (08/07/24) Physical Therapy Treatment Note PT-OP-A Visit Information Start: 01/29/24 13:09 Freq: Status: Active Protocol: Document 08/07/24 07:37 LRN (Rec: 08/07/24 08:26 LRN Laptop) Out-Patient Physical Therapy Visit Information Visit Information Visit Type Treatment Note Visit Start Time 07:38 Visit Stop Time 08:25 Visit Number 14 (5 after PN, 25/yr) Evaluation Information Evaluation Date 02/25/24 Precautions Precautions IUD 2/7 yrs in. Seizures? Concussion age 9, thyroid disorder, 4G4P with much pain during 3rd , quick delivery in supine and tearing of unknown degree. PT-OP-B Current Condition Start: 01/29/24 13:09 Freq: Status: Active Protocol: Document 02/25/24 07:32 LRN (Rec: 02/25/24 08:24 LRN [id number]) Current Condition History of Current Condition Onset Date 2014 Current Complaints Having a lot of tailbone pn, heaviness ant lwr abdomen, discomfort in sup. History of Current Condition Has been a runner all her life , moved to [place] and was training for a 10 mile race, then felt like she was sitting on a tennis ball. Stopped running and saw a PT at [facility]rologist clinic, but stopped after 2 months because she felt it wasn't helpful, other than what stopping running achieved . Pt is 4G4P and had significant tearing with the first childbirth, but normal and running for exercise until time of delivery w/o pain (oldest child is 18). 2nd she felt a moderate amount of discomfort in anterior pubic region. 3rd she had much pubic pain due to baby with large head and delivered fast was fast, < 3 hrs) resulting in post decreased sensation with intercourse. Pt calls needing stitches, but doesn't know the degree of tearing. 4th child was induced delivery and felt was normal, without pain. In August of 2023 she began running 1 mile/day for 20 days and had to stop because of new tailbone pain and heaviness with bulging in the perineum, but not the tennis ball feeling. When having intercourse feels like there is a tissue restricting insertion and is uncomfortable . She plans on discussing with her PCP about starting estrogen creme. She swam and walked with last 3 pregnancies. Currently, sometimes walking to the bathroom she has loss of small fecal matter at work and when out in public, mostly at home . C/o with intercourse she is not able to complete an orgasm, and it is not as intense since the of her 3rd child. Has been told she potentially she will need surgery to repair the PF or rectocele. Treatment Goals Patient/Caregiver Goals Pt goals: Decrease or eliminate tailbone pain (that started in 09/12 after trying running). Decrease heaviness in lower abdomen (2/10), minimal before starting running (1/10) [place] more comfortable Be able to incorporate wgt training in her ex program. ( Restore your core) Improve level of fecal continence. 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 PT-OP-C Subjective Start: 01/29/24 13:09 Freq: Status: Active Protocol: Document 08/07/24 07:37 LRN (Rec: 08/07/24 08:26 LRN Laptop) OP-PT Subjective Patient Comments Patient Comments Forgot her Vaginal electrode in the car. Little sore this past week, L Sacral area. States since last visit SI pain not bothering but the tailbone dull tightness has been bothering her for 1 week. No LBP. Hasn't started ex class because Thyroid is limiting her ability to exercise (fatigue). PT-OP-I Pelvic Floor Start: 01/29/24 13:09 Freq: Status: Active Protocol: Document 06/08/24 15:02 LRN (Rec: 06/08/24 16:18 LRN [id number]) Pelvic Floor Assessment Pelvic Clock Pelvic Clock Other Pelvic clock 4-8 tenderness, greatest at L 4-6 Inter-Rectal Assessment Not performed due to time constraints. Prolapse Cystocele Grade 2 Urethrocele Grade 1 Prolapse Comments Bladder does not extend past hymen location. Perineal Descent Resting Absent Bearing Present Contraction Ability Voluntary Contraction Moderate Voluntary Relaxation Weak Manual Muscle Testing Left 3 Manual Muscle Testing Right 3 Manual Muscle Testing Anterior 3 Manual Muscle Testing Posterior 3 Muscle Endurance (Seconds) 10 Number of Quick Contractions In 10 10 Seconds PT-OP-J Posture/Palpation/Skin Start: 01/29/24 13:09 Freq: Status: Active Protocol: Document 02/25/24 07:32 LRN (Rec: 02/25/24 08:24 LRN [id number]) Posture Evaluation Position Standing Shoulder Posture (L) Elevated Scapula Posture (R) Retracted Pelvis Posture (L) PSIS Posterior,(L) ASIS Posterior Comments Posture Comments Dowagers hump, Sacrum L rotated, R PSIS is more lateral than L. In sitting: Pt sits with legs crossed, reportedly for comfort. PT-OP-K Range of Motion Start: 01/29/24 13:09 Freq: Status: Active Protocol: Document 07/03/24 07:35 LRN (Rec: 07/03/24 08:21 LRN Laptop) Hip Goniometric Range of Motion Hip Right Passive Testing Position Supine Internal Rotation 30 External Rotation 85 Left Passive Testing Position Supine Internal Rotation 45 External Rotation 70 PT-OP-M Strength Start: 01/29/24 13:09 Freq: Status: Active Protocol: Document 02/25/24 07:32 LRN (Rec: 02/25/24 08:24 LRN [id number]) Hip Strength Hip Manual Muscle Testing Right Flexion (L2) 3+ Fair+ Internal Rotation 4+ Good+ Left Flexion (L2) 3+ Fair+ Extension (S1) 3 Fair Abduction 3+ Fair+ External Rotation 3+ Fair+ Internal Rotation 4+ Good+ PT-OP-Q Treatments Start: 01/29/24 13:09 Freq: Status: Active Protocol: Document 08/07/24 07:37 LRN (Rec: 08/07/24 08:26 LRN Laptop) Therapeutic Exercises Supine Exercises Lateral Hip stretch Side bilateral Reps/Minutes 4' Hip ER stretch Supine Exercise Name L>R Side bilateral Reps/Minutes 3' Happy Baby stretch Reps/Minutes 2' Manual Therapy Treatment Consent Patient gave verbal consent for manual Yes treatment Neuro Re-Education Treatment Other Activities C5 ms re-educ Reps/Duration 35' Comments Passive & Active mvmts (6-8 stim each) of bilateral: Neck ext w/rot: for Scalene medius/anterior & Longus coli Neck Lat flex: Longissimus Cericics & Intertransversarii, Lev Scap. Neck Flex (Active only): Interspinus C1-T1, spinalis C2 -T1 TP Horiz ADD w/Lat rot: Teres Panchito Horiz Flex/Rhomboids: Court Transcriber Deltoid & Rhomboids Hoiz Ext: Anter Deltoid - Clavicle to Deltoid Tuberosity Shoulder Depression: Supraspinatus, Middle Deltoid Medial Humeral rot (Active only): Infrasp, Teres Minor Lateral Humeral Rot (Active only): Subscap Elbow Ext: Biceps, Brachialis, Brachioradialis, Shoudler Shrug: Subclavius Pronation: Supinator Scapular ADD: Serratus Anterior - lateral 8 ribs to scap Self-Care/Home Management Treatment Activities Self-Care/Home Management Activities I/S pt in HEP: Active End- range shoulder flex (lat dorsi ), row with wrists extended ( member of congress deltoid and wrist extensor), shoulder IR/ER with arms hanging dependent, & arm horiz AB/AD in supination . PT-OP-T Assessment and Plan Start: 01/29/24 13:09 Freq: Status: Active Protocol: Document 08/07/24 07:37 LRN (Rec: 08/07/24 08:26 LRN Laptop) Physical Therapy Assessment Goals Five Impairment Fecal incontinence Short Term Goal (STG) Improve posterior PF strength with pt able to control passing of gas in public. 04/20/24: A little better controlling gas. 06/18/24: Able to control at work/public most of the time, and can walk away to pass gas; at home has loss of control. 07/03/24: 50% better controlling flatulence, sometimes has uncontrolled. Gaseous with dairy. STG Duration 08/03/24 progressing 07/03/24 [place] Fisherman Goal (LTG) Improve posterior PF strength with pt able to walk to the bathroom wthout loss of small fecal matter at work and when out in public. 06/08/24: No fecal leakage if reponds to urge in timely manner. 07/04/24: 95% confident can make it to the bathroom. LTG Duration 05/19/24 (06/08/24: MET GOAL ) Three Impairment Heaviness pain in lower abdomen (2/10) Short Term Goal (STG) Decrease constant feeling of heaviness in the lower abdomen to intermittent. 04/20/24: No discomfort because not running or exercising. Has it by the end of the day (still walking). 06/08/24: Intermittent heaviness in lower abdomen; discomfort at end of day. Not returned to running, afraid she might have to give it up. 07/03/24: Heaviness only at the end of a long day. STG Duration 08/03/24 (07/03/24: MET GOAL ) [facility] Goal (LTG) Eliminate heaviness in the lower abdomen by pt able to demonstrate wgt lifting exercise with proper breathing mechanics. 04/20/24: Pt demonstrates ability to lift 2# wgt with improved breath mechanics ( changed to exhale with lift f/ b inhale). 07/03/24: Hasn't returned to wgt lifting (brought wgt), wanting to return to [place] class. 08/07/24: Not returned to wgt lifting until feeling better from other health conditions. LTG Duration 09/29/24 progressed 04/20/24 (heaviness w/lifting, end of day & run) One Impairment Lacks appropriate self care HEP. Short Term Goal (STG) Pt will be educated and able to demonstrate proper deep breathing methods for having a bowel mvmt to minimize an increase in core pressure. 03/03/24: Pt educated in proper core pressure mgmt for transfers. 04/03/24: Pt reporting ability to have BM w/o valsalva pushing. STG Duration 04/07/24 (04/03/24: MET GOAL ) [place] Fisherman Goal (LTG) Pt will be independent in a self care HEP for PF strengthening in all positions , and able to incorporate wgt training in her ex program without onset of bulge in perineum (to include Restore your core program). 03/03/24: HEP: Kegels (quick , long hold) & Deep breathing. 04/03/24: HEP: Fig 4, Piriformis, & Lateral Hip stretch. 08/07/24: I/S pt in HEP: Active End-range shoulder flex (lat dorsi), row with wrists extended (member of congress deltoid and wrist extensor), shoulder IR/ ER with arms hanging dependent , & arm horiz AB/AD in supination. LTG Duration 09/29/24 progressed 08/08/23 Assessment Summary Assessment Pt is a 48 yo female with lessening tailbone pain (sit & sup), improved posterior PF strength with 95% confidence she will not have fecal leakage when in public, but she has sometimes uncontrolled flatulence (50% improved) because of intestinal gas with diary. She only has lower abdominal heaviness at end of a long day, but her thyroid condition is hindering her ability to return to exercise (wgt lifting) and [place] class. She is not having trouble with tailbone pain sitting ( car rides) or lying supine and her dyspareunia has resolved since starting use of estradiol pills. Pt probably ready to resume wgt ex with breathwork and proper posturing (ribs over hips). Today, after BERNARD C5 neuro reeducation, pt showed improved posture (leveling of shoulders/scapula), but no significant change in stiffness of R SIJ. Pt to monitor the next day for improvement. Further treatments needed. Physical Therapy Plan Frequency and Duration Frequency of Treatment Every Other Week Duration of treatment (weeks) 16 Plan of Care Start Date 06/08/24 Plan of Care End Date 09/29/24 Next Visit Focus/Plan Next Note Type Treatment Note Next Visit Plan NEXT: check if pt has returned to wgt training ex's. -Assess for correction of L/S trunk shift (?L) and check for umbilicus shifted L compared to xyphoid process. -C5 BERNARD and Sacral balancing if needed, then - Assess posterior PF & PF/(? anal) Vemg for strength/ endurance in absence of GLUTEALS, & assess for bladder prolapse and abdominal heaviness pain, -Assess hip mobility (review if needed hip stretches), and hip strength. -Teach coccygeal ms stretch with swim noodle. - PF strengthening on wedge & L hip/member of congress PF strengthening (avoid over tightening of more external coccygeal/ gluteal ms). -Assess DR for abdominal strengthening. Monitor response to sacral balancing & coccyx ms release (coccyx pain sup & sitting). Manual STM (as needed) to abdomen and externally area of anterior PF. POC: Home program focus: PF stretching, posture, positioning, & exercise. Sacral balancing and trP to posterior PF to reduce sacral pain, Posterior PF (on wedge) /L>R SIJ/core stab strengthening, review pt's HEP for appropriateness, training on breath w/exer; ?return to running.
--- NOTE | 2024-08-22 17:17 | PT.OTN ---
Current Diagnoses Sacrococcygeal disorders, not elsewhere classified (08/22/24) Cystocele, unspecified (08/22/24) Unspecified dyspareunia (08/22/24) Flatulence (08/22/24) Fecal urgency (08/22/24) Physical Therapy Treatment Note PT-OP-A Visit Information Start: 01/29/24 13:09 Freq: Status: Active Protocol: Document 08/22/24 07:31 LRN (Rec: 08/22/24 08:15 LRN Laptop) Out-Patient Physical Therapy Visit Information Visit Information Visit Type Treatment Note Visit Start Time 07:31 Visit Stop Time 08:10 Visit Number 15 (6 after PN, 25/yr) Evaluation Information Evaluation Date 02/25/24 Precautions Precautions IUD 2/7 yrs in. Seizures? Concussion age 9, thyroid disorder, 4G4P with much pain during 3rd , quick delivery in supine and tearing of unknown degree. PT-OP-B Current Condition Start: 01/29/24 13:09 Freq: Status: Active Protocol: Document 02/25/24 07:32 LRN (Rec: 02/25/24 08:24 LRN [id number]) Current Condition History of Current Condition Onset Date 2014 Current Complaints Having a lot of tailbone pn, heaviness ant lwr abdomen, discomfort in sup. History of Current Has been a runner all her life, moved to [place] and was Condition training for a 10 mile race, then felt like she was sitting on a tennis ball. Stopped running and saw a PT at urologist clinic, but stopped after 2 months because she felt it wasn't helpful, other than what stopping running achieved. Pt is 4G4P and had significant tearing with the first childbirth, but normal and running for exercise until time of delivery w/o pain (oldest child is 18). 2nd she felt a moderate amount of discomfort in anterior pubic region. 3rd she had much pubic pain due to baby with large head and delivered fast was fast, < 3 hrs) resulting in post decreased sensation with intercourse. Pt calls needing stitches, but doesn't know the degree of tearing. 4th child was induced delivery and felt was normal, without pain. In August of 2023 she began running 1 mile/day for 20 days and had to stop because of new tailbone pain and heaviness with bulging in the perineum, but not the tennis ball feeling. When having intercourse feels like there is a tissue restricting insertion and is uncomfortable. She plans on discussing with her PCP about starting estrogen creme. She swam and walked with last 3 pregnancies. Currently, sometimes walking to the bathroom she has loss of small fecal matter at work and when out in public, mostly at home. C/o with intercourse she is not able to complete an orgasm, and it is not as intense since the of her 3rd child. Has been told she potentially she will need surgery to repair the PF or rectocele. Treatment Goals Patient/Caregiver Pt goals: Goals Decrease or eliminate tailbone pain (that started in after trying running). Decrease heaviness in lower abdomen (2/10), minimal before starting running (1/10) [place] more comfortable Be able to incorporate wgt training in her ex program. (Restore your core) Improve level of fecal continence. 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 [employer]/ 4G4P with much pain during 3rd , quick Recovery delivery and tearing of unknown degree. PT-OP-C Subjective Start: 01/29/24 13:09 Freq: Status: Active Protocol: Document 08/22/24 07:31 LRN (Rec: 08/22/24 08:15 LRN Laptop) OP-PT Subjective Patient Comments Patient Comments States she has been doing the ex's last issued and did a feet and hand fascia. Mild LB & groin pain. Groin pain is constant. PT-OP-I Pelvic Floor Start: 01/29/24 13:09 Freq: Status: Active Protocol: Document 06/08/24 15:02 LRN (Rec: 06/08/24 16:18 LRN [id number]) Pelvic Floor Assessment Pelvic Clock Pelvic Clock Other Pelvic clock 4-8 tenderness, greatest at L 4-6 Inter-Rectal Not performed due to time constraints. Assessment Prolapse Cystocele Grade 2 Urethrocele Grade 1 Prolapse Comments Bladder does not extend past hymen location. Perineal Descent Resting Absent Bearing Present Contraction Ability Voluntary Moderate Contraction Voluntary Relaxation Weak Manual Muscle 3 Testing Left Manual Muscle 3 Testing Right Manual Muscle 3 Testing Anterior Manual Muscle 3 Testing Posterior Muscle Endurance ( 10 Seconds) Number of Quick 10 Contractions In 10 Seconds PT-OP-J Posture/Palpation/Skin Start: 01/29/24 13:09 Freq: Status: Active Protocol: Document 02/25/24 07:32 LRN (Rec: 02/25/24 08:24 LRN [id number]) Posture Evaluation Position Standing Shoulder Posture (L) Elevated Scapula Posture (R) Retracted Pelvis Posture (L) PSIS Posterior,(L) ASIS Posterior Comments Posture Comments Dowagers hump, Sacrum L rotated, R PSIS is more lateral than L. In sitting: Pt sits with legs crossed, reportedly for comfort. PT-OP-K Range of Motion Start: 01/29/24 13:09 Freq: Status: Active Protocol: Document 07/03/24 07:35 LRN (Rec: 07/03/24 08:21 LRN Laptop) Hip Goniometric Range of Motion Hip Right Passive Testing Position Supine Internal Rotation 30 External Rotation 85 Left Passive Testing Position Supine Internal Rotation 45 External Rotation 70 PT-OP-M Strength Start: 01/29/24 13:09 Freq: Status: Active Protocol: Document 02/25/24 07:32 LRN (Rec: 02/25/24 08:24 LRN [id number]) Hip Strength Hip Manual Muscle Testing Right Flexion (L2) 3+ Fair+ Internal Rotation 4+ Good+ Left Flexion (L2) 3+ Fair+ Extension (S1) 3 Fair Abduction 3+ Fair+ External Rotation 3+ Fair+ Internal Rotation 4+ Good+ PT-OP-Q Treatments Start: 01/29/24 13:09 Freq: Status: Active Protocol: Document 08/22/24 07:31 LRN (Rec: 08/22/24 08:15 LRN Laptop) Manual Therapy Treatment Consent Patient gave verbal Yes consent for manual treatment Soft Tissue Mobilization Coccygeal ms Body Location Lateral border of coccyx - Externally Mobilization Type Sustained Pressure,Trigger Point Release Intensity/Depth Moderate Body Position Prone Trunk Body Location Trunk Rotators Mobilization Type Myofascial Release Intensity/Depth Moderate Body Position Supine Abdomen Body Location Lower Abdomen Cephalad lift and R lateral MFR Mobilization Type Myofascial Release Intensity/Depth Moderate Body Position Supine Neuro Re-Education Treatment Other Activities L1 ms re-educ Details BERNARD ms reeducation Reps/Duration 16' Comments Passive & Active mvmts (6-8 stim each) of bilateral: Hip Ext: for Psoas Major & Minor Hip Depression: for QL Trunk Lateral Flex: for Ext/Intenal Oblique & TA. Trunk Flex: For Iliocostalis Lumborum, Intertranversarii, Interspinalis, Multifidus PT-OP-T Assessment and Plan Start: 01/29/24 13:09 Freq: Status: Active Protocol: Document 08/22/24 07:31 LRN (Rec: 08/22/24 08:15 LRN Laptop) Physical Therapy Assessment Goals Five Impairment Fecal incontinence Short Term Goal (STG Improve posterior PF strength with pt able to control ) passing of gas in public. 04/20/24: A little better controlling gas. 06/18/24: Able to control at work/public most of the time, and can walk away to pass gas; at home has loss of control. 07/03/24: 50% better controlling flatulence, sometimes has uncontrolled. Gaseous with dairy. 08/22/24: 30% overall better with flatulence controll. STG Duration 08/03/24 progressing 07/03/24 Group Home Goal (LTG) Improve posterior PF strength with pt able to walk to the bathroom wthout loss of small fecal matter at work and when out in public. 06/08/24: No fecal leakage if reponds to urge in timely manner. 07/04/24: 95% confident can make it to the bathroom. LTG Duration 05/19/24 (06/08/24: MET GOAL) Three Impairment Heaviness pain in lower abdomen (2/10) Short Term Goal (STG Decrease constant feeling of heaviness in the lower ) abdomen to intermittent. 04/20/24: No discomfort because not running or exercising. Has it by the end of the day (still walking). 06/08/24: Intermittent heaviness in lower abdomen; discomfort at end of day. Not returned to running, afraid she might have to give it up. 07/03/24: Heaviness only at the end of a long day. STG Duration 08/03/24 (07/03/24: MET GOAL) Group Home Goal (LTG) Eliminate heaviness in the lower abdomen by pt able to demonstrate wgt lifting exercise with proper breathing mechanics. 04/20/24: Pt demonstrates ability to lift 2# wgt with improved breath mechanics (changed to exhale with lift f/b inhale). 07/03/24: Hasn't returned to wgt lifting (brought wgt) , wanting to return to [place] class. 08/07/24: Not returned to wgt lifting until feeling better from other health conditions. LTG Duration 09/29/24 progressed 04/20/24 (heaviness w/lifting, end of day & run) One Impairment Lacks appropriate self care HEP. Short Term Goal (STG Pt will be educated and able to demonstrate proper deep ) breathing methods for having a bowel mvmt to minimize an increase in core pressure. 03/03/24: Pt educated in proper core pressure mgmt for transfers. 04/03/24: Pt reporting ability to have BM w/o valsalva pushing. STG Duration 04/07/24 (04/03/24: MET GOAL) Group Home Goal (LTG) Pt will be independent in a self care HEP for PF strengthening in all positions, and able to incorporate wgt training in her ex program without onset of bulge in perineum (to include Restore your core program). 03/03/24: HEP: Kegels (quick, long hold) & Deep breathing. 04/03/24: HEP: Fig 4, Piriformis, & Lateral Hip stretch. 08/07/24: I/S pt in HEP: Active End-range shoulder flex (lat dorsi), row with wrists extended (layout man deltoid and wrist extensor), shoulder IR/ER with arms hanging dependent, & arm horiz AB/AD in supination. LTG Duration 09/29/24 progressed 08/08/23 Assessment Summary Assessment Trunk rotated L to start, improved trunk positioning post therapy with umbilicus under xiphoid process. Pt felt relaxation of LB. Physical Therapy Plan Frequency and Duration Frequency of Every Other Week Treatment Duration of 16 treatment (weeks) Plan of Care Start 06/08/24 Date Plan of Care End 09/29/24 Date Next Visit Focus/Plan Next Note Type Treatment Note Next Visit Plan NEXT: Pt is doing wgt training at home with hand weights. -Assess for correction of L/S trunk shift (?L) and if position held for umbilicus no longer shifted L compared to xyphoid process. -Focus on reducing coccyx pain with sitting and reducing L groin pain. -C5 BERNARD and Sacral balancing if needed, then - Assess posterior PF & PF/(?anal) Vemg for strength/ endurance in absence of GLUTEALS, & assess for bladder prolapse and abdominal heaviness pain, -Assess hip mobility (review if needed hip stretches), and hip strength. -Teach coccygeal ms stretch with swim noodle. - PF strengthening on wedge & L hip/layout man PF strengthening (avoid over tightening of more external coccygeal/gluteal ms). -Assess DR for abdominal strengthening. Monitor response to sacral balancing & coccyx ms release (coccyx pain sup & sitting). Manual STM (as needed) to abdomen and externally area of anterior PF. POC: Home program focus: PF stretching, posture, positioning, & exercise. Sacral balancing and trP to posterior PF to reduce sacral pain, Posterior PF (on wedge)/L>R SIJ/core stab strengthening, review pt's HEP for appropriateness, training on breath w/exer; ? return to running.
--- NOTE | 2024-09-26 17:40 | PT.OTN ---
Addendum entered and electronically signed by Randa Toledo, PT 09/26/24 18:37: Pelvic FLoor Distress Inventory Short Form 20 = 122.75 Original Note: Current Diagnoses Sacrococcygeal disorders, not elsewhere classified (09/26/24) Cystocele, unspecified (09/26/24) Unspecified dyspareunia (09/26/24) Flatulence (09/26/24) Fecal urgency (09/26/24) Physical Therapy Treatment Note PT-OP-A Visit Information Start: 01/29/24 13:09 Freq: Status: Active Protocol: Document 09/26/24 09:46 LRN (Rec: 09/26/24 10:34 LRN Laptop) Out-Patient Physical Therapy Visit Information Visit Information Visit Type Treatment Note Visit Start Time 09:47 Visit Stop Time 10:27 Visit Number 16 (7 after PN, 25/yr) Evaluation Information Evaluation Date 02/25/24 Precautions Precautions IUD 2/7 yrs in. Seizures? Concussion age 9, thyroid disorder, 4G4P with much pain during 3rd , quick delivery in supine and tearing of unknown degree. PT-OP-B Current Condition Start: 01/29/24 13:09 Freq: Status: Active Protocol: Document 02/25/24 07:32 LRN (Rec: 02/25/24 08:24 LRN [id number]) Current Condition History of Current Condition Onset Date 2014 Current Complaints Having a lot of tailbone pn, heaviness ant lwr abdomen, discomfort in sup. History of Current Has been a runner all her life, moved to [place] and was Condition training for a 10 mile race, then felt like she was sitting on a tennis ball. Stopped running and saw a PT at [facility] clinic, but stopped after 2 months because she felt it wasn't helpful, other than what stopping running achieved. Pt is 4G4P and had significant tearing with the first childbirth, but normal and running for exercise until time of delivery w/o pain (oldest child is 18). 2nd she felt a moderate amount of discomfort in anterior pubic region. 3rd she had much pubic pain due to baby with large head and delivered fast was fast, < 3 hrs) resulting in post decreased sensation with intercourse. Pt calls needing stitches, but doesn't know the degree of tearing. 4th child was induced delivery and felt was normal, without pain. In August of 2023 she began running 1 mile/day for 20 days and had to stop because of new tailbone pain and heaviness with bulging in the perineum, but not the tennis ball feeling. When having intercourse feels like there is a tissue restricting insertion and is uncomfortable. She plans on discussing with her PCP about starting estrogen creme. She swam and walked with last 3 pregnancies. Currently, sometimes walking to the bathroom she has loss of small fecal matter at work and when out in public, mostly at home. C/o with intercourse she is not able to complete an orgasm, and it is not as intense since the of her 3rd child. Has been told she potentially she will need surgery to repair the PF or rectocele. Treatment Goals Patient/Caregiver Pt goals: Goals Decrease or eliminate tailbone pain (that started in after trying running). Decrease heaviness in lower abdomen (2/10), minimal before starting running (1/10) [place] more comfortable Be able to incorporate wgt training in her ex program. (Restore your core) Improve level of fecal continence. 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 Effect Therapy/ 4G4P with much pain during 3rd , quick Recovery delivery and tearing of unknown degree. PT-OP-C Subjective Start: 01/29/24 13:09 Freq: Status: Active Protocol: Document 09/26/24 09:46 LRN (Rec: 09/26/24 10:34 LRN Laptop) OP-PT Subjective Patient Comments Patient Comments Hasn't had any fecal accidents and has been able to make it to bathroom. Patient Questionnaires Pelvic Pain and Urgency/Frequency Patient Symptom Scale Pelvic Pain Score 6 PT-OP-I Pelvic Floor Start: 01/29/24 13:09 Freq: Status: Active Protocol: Document 09/26/24 09:46 LRN (Rec: 09/26/24 10:34 LRN Laptop) Pelvic Floor Assessment Contraction Ability Voluntary Moderate Contraction Voluntary Relaxation Moderate Manual Muscle 3 Testing Right Manual Muscle 3 Testing Anterior Manual Muscle 3 Testing Posterior Muscle Endurance ( 10 Seconds) Number of Quick 9 Contractions In 10 Seconds Comments Pelvic Floor No palpable discomfort in PF ms. Comments PT-OP-J Posture/Palpation/Skin Start: 01/29/24 13:09 Freq: Status: Active Protocol: Document 02/25/24 07:32 LRN (Rec: 02/25/24 08:24 LRN [id number]) Posture Evaluation Position Standing Shoulder Posture (L) Elevated Scapula Posture (R) Retracted Pelvis Posture (L) PSIS Posterior,(L) ASIS Posterior Comments Posture Comments Dowagers hump, Sacrum L rotated, R PSIS is more lateral than L. In sitting: Pt sits with legs crossed, reportedly for comfort. PT-OP-K Range of Motion Start: 01/29/24 13:09 Freq: Status: Active Protocol: Document 07/03/24 07:35 LRN (Rec: 07/03/24 08:21 LRN Laptop) Hip Goniometric Range of Motion Hip Right Passive Testing Position Supine Internal Rotation 30 External Rotation 85 Left Passive Testing Position Supine Internal Rotation 45 External Rotation 70 PT-OP-M Strength Start: 01/29/24 13:09 Freq: Status: Active Protocol: Document 02/25/24 07:32 LRN (Rec: 02/25/24 08:24 LRN [id number]) Hip Strength Hip Manual Muscle Testing Right Flexion (L2) 3+ Fair+ Internal Rotation 4+ Good+ Left Flexion (L2) 3+ Fair+ Extension (S1) 3 Fair Abduction 3+ Fair+ External Rotation 3+ Fair+ Internal Rotation 4+ Good+ PT-OP-Q Treatments Start: 01/29/24 13:09 Freq: Status: Active Protocol: Document 09/26/24 09:46 LRN (Rec: 09/26/24 10:34 LRN Laptop) Therapeutic Exercises Supine Exercises Kegels, quick/long Reps/Minutes 10 SH & quick kegels Comments Pt able to hold kegel for 10 secs and gets good relax btn contractions Manual Therapy Treatment Consent Patient gave verbal Yes consent for manual treatment Soft Tissue Mobilization Coccygeal ms Body Location Lateral border of coccyx - Externally Mobilization Type Myofascial Release,Sustained Pressure,Trigger Point Release Intensity/Depth Moderate Body Position Prone Comments Hip ER/IR single and double. PF Body Location PF superficial and deep muscles Body Position Supine Comments No pain, tension and trigger points found. Self-Care/Home Management Treatment Education Other Education Verbal review of areas to focus on with her HEP and method of exer (kegels w/pillow under hips and focus relaxation phase; wgts with breathwork), and self stretch to L lateral coccyx and abdomen. Discussed precaution of self mob and massages to area where she feels most tension as being in area of sciatic nerves exiting sacrum. Discussed need for continuation of therapy or discharge with pt returning if pain returns from flare up. PT-OP-T Assessment and Plan Start: 01/29/24 13:09 Freq: Status: Active Protocol: Document 09/26/24 09:46 LRN (Rec: 09/26/24 10:34 LRN Laptop) Physical Therapy Assessment Goals Five Impairment Fecal incontinence Short Term Goal (STG Improve posterior PF strength with pt able to control ) passing of gas in public. 04/20/24: A little better controlling gas. 06/18/24: Able to control at work/public most of the time, and can walk away to pass gas; at home has loss of control. 07/03/24: 50% better controlling flatulence, sometimes has uncontrolled. Gaseous with dairy. 08/22/24: 30% overall better with flatulence control. 09/26/24: No Fecal leakage recently, 50% overall better with flatulence control. Good PF contraction hold and good relaxation between contractions with quick kegels. STG Duration 08/03/24 (09/26/24: Improved, NOT MET GOAL) Snf Goal (LTG) Improve posterior PF strength with pt able to walk to the bathroom wthout loss of small fecal matter at work and when out in public. 06/08/24: No fecal leakage if reponds to urge in timely manner. 07/04/24: 95% confident can make it to the bathroom. LTG Duration 05/19/24 (06/08/24: MET GOAL) Three Impairment Heaviness pain in lower abdomen (2/10) Short Term Goal (STG Decrease constant feeling of heaviness in the lower ) abdomen to intermittent. 04/20/24: No discomfort because not running or exercising. Has it by the end of the day (still walking). 06/08/24: Intermittent heaviness in lower abdomen; discomfort at end of day. Not returned to running, afraid she might have to give it up. 07/03/24: Heaviness only at the end of a long day. STG Duration 08/03/24 (07/03/24: MET GOAL) Snf Goal (LTG) Eliminate heaviness in the lower abdomen by pt able to demonstrate wgt lifting exercise with proper breathing mechanics. 04/20/24: Pt demonstrates ability to lift 2# wgt with improved breath mechanics (changed to exhale with lift f/b inhale). 07/03/24: Hasn't returned to wgt lifting (brought wgt) , wanting to return to [place] class. 08/07/24: Not returned to wgt lifting until feeling better from other health conditions. 09/26/24: Less heaviness with return to wgt lifting ex' s. Not working, so no heaviness at end of day. Still feels a little pain in coccyx (20%). Pt choosing to give up running. LTG Duration 09/29/24 (09/25/24: Goal partially met, heaviness in lower ab after ex) One Impairment Lacks appropriate self care HEP. Short Term Goal (STG Pt will be educated and able to demonstrate proper deep ) breathing methods for having a bowel mvmt to minimize an increase in core pressure. 03/03/24: Pt educated in proper core pressure mgmt for transfers. 04/03/24: Pt reporting ability to have BM w/o valsalva pushing. STG Duration 04/07/24 (04/03/24: MET GOAL) Snf Goal (LTG) Pt will be independent in a self care HEP for PF strengthening in all positions, and able to incorporate wgt training in her ex program without onset of bulge in perineum (to include Restore your core program). 03/03/24: HEP: Kegels (quick, long hold) & Deep breathing. 04/03/24: HEP: Fig 4, Piriformis, & Lateral Hip stretch. 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 09/26/24: Pt is doing her HEP of UE light wgt work outs and is able to identify that she is to manage core pressure with breath during exercise. LTG Duration 09/29/24 (09/26/24: MET GOAL) Assessment Summary Assessment Pt is a 48 yo female with tailbone pain in sit & sup that has lessened overall 80%. Posterior PF strength has improved with pt reporting no fecal leakage and ability to make it to the bathroom when out shopping. She has reported 95% confidence she will not have fecal leakage when in public, and 50% improvement in ability to control flatulence. She has most trouble with flatulence because of intestinal gas with diary products. She has lower abdominal heaviness after weight bearing exercise, but not at the end of her day because she is on break with her job. She reports now doing light weight lifting exercise with good core pressure management with breath. Trunk posture is normal with no visible shift of umbilicus to the left. The pt has a some tailbone pain and trouble with controlling flatulence, but has a HEP that she can continue to work on progress in her improvement. If her coccyx pain returns or she begins to have more trouble with her flatulence, then return to therapy would be appropriate. The pt is aware that she will need a new referral to return to therapy if further PT is needed. Physical Therapy Plan Discharge Physical Therapy Discharge Reasons Plateau in Progress Discharge Comments Thank you for your referral. Further physical therapy in the future would be appropriate if needed.
== END 2024-09-27 10:23 | disposition home or self-care (01) ==
LOC: PHYS 09:45
PROVIDERS: Family Provider Internal Medicine; PCP Internal Medicine; Referring Provider Internal Medicine; Visit Provider Internal Medicine
DX: N81.10 Cystocele, unspecified (principal); N94.10 Unspecified dyspareunia; R14.3 Flatulence; R15.2 Fecal urgency; M53.3 Sacrococcygeal disorders, not elsewhere classified
CPT/HCPCS: 97110; 97112; 97140; 97162; 97535

== ENCOUNTER → 2025-01-10 08:34 | Outpatient (CLI) | payer OTHER, SELFPAY ==
[2025-01-10 09:18] LABS: Add Manual Diff / Slide Review NO; Hematocrit 43.6 % (36-46); Hemoglobin 14.9 g/dL (12.0-16.0); Lymphocytes Absolute Auto 1800 /uL (1100-4500); Mean Corpuscular HGB Conc 34.2 % (30-36); Mean Corpuscular Hemoglobin 30.4 PG (26-34); Mean Corpuscular Volume 89.0 fL (80-100); Platelet Count 295 X10^3/uL (150-400)
[2025-01-10 09:32] LABS: Alanine Aminotransferase 17 IU/L (<35); Albumin 4.6 g/dL (3.5-5.0); Albumin Globulin Ratio 1.9 (1.0-2.8); Alkaline Phosphatase 54 U/L (38-126); Blood Urea Nitrogen 14 mg/dL (7-17); Calcium 10.0 mg/dL (8.4-10.2); Carbon Dioxide 27 mmol/L (22-32); Chloride 105 mmol/L (98-107); Estimated Glomerular Filt Rate > 60 mL/min (>60); Globulin 2.4 g/dL (1.7-4.1); Glucose 121 mg/dL (70-99); HEMOLYSIS < 15 (0-50); Potassium 4.3 mmol/L (3.4-5.1); Sodium 140 mmol/L (137-145); Total Protein 7.0 g/dL (6.3-8.2)
[2025-01-10 10:07] LABS: TSH w/ Reflex to FT4 0.83 uIU/mL (0.47-4.68)
[2025-01-11 08:25] LABS: Hemoglobin A1C% w Est Avg Glu 5.3 % (4.0-6.0)
== END ==
PROVIDERS: Family Provider Internal Medicine; PCP Family Medicine; Referring Provider Family Medicine; Visit Provider Family Medicine
DX: R51.9 Headache, unspecified (principal); E03.9 Hypothyroidism, unspecified; R73.9 Hyperglycemia, unspecified
CPT/HCPCS: 36415; 80053; 83036; 84443; 85025